=== PATIENT | male | born 1975 | race African-American/Black ===

== ENCOUNTER 2017-07-06 11:02 | Emergency (ER) | payer OTHER ==
[2017-07-06 11:09] VITALS: BP 146/86; PULSE 66; TEMP 97.6; BMI 35.6
[2017-07-06] MEDS ORDERED: IBUPROFEN 600 MG TABLET (FP) PO ONE (12:13)
[2017-07-06] MEDS ORDERED: IBUPROFEN 400 MG TABLET (FP) PO ONE (12:15)
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
== END 2017-07-06 12:22 | disposition home or self-care (01) ==
LOC: JERFT 11:02
DX: M54.5 Low back pain (principal); V44.9XXA Unspecified car occupant injured in collision with heavy transport vehicle or bus in traffic accident, initial encounter; Y92.488 Other paved roadways as the place of occurrence of the external cause; Y93.89 Activity, other specified; Y99.8 Other external cause status
CPT/HCPCS: 99281-25

== ENCOUNTER 2017-10-15 22:19 | Emergency (ER) | payer SELFPAY ==
[2017-10-15 22:45] VITALS: BP 116/62; PULSE 93; TEMP 99.1; BMI 34.2
--- NOTE | 2017-10-15 23:58 | PDOC ---
History of Present Illness - General Chief Complaint: Pain Stated Complaint: COLD SYMPTOMS/RT ARM PAIN Time Seen by Provider: 10/15/17 23:32 History Source: Patient Exam Limitations: No Limitations - History of Present Illness Initial Comments: 10/15/17 23:53 This is a 42-year-old male with past medical history of tonsillectomy, YASMANI presents emergency Department with 1 week of dry cough, sore throat, body aches also with 1 day of atraumatic right elbow pain and 1 month of itching and burning to his left foot. 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 Patient testicular medication for approximately 4 days and did not improve so she stopped taking it. Patient states he woke up this morning with right elbow pain which he states is decreased his range of motion. He denies any redness, swelling or warmth to his elbow. He denies fevers, chills, chest pain, shortness of breath, abdominal pain , nausea, vomiting, diarrhea. Past History - Past Medical History Allergies/Adverse Reactions: Allergies Allergy/AdvReac Type Severity Reaction Status Date / Time No Known Drug Allergies Allergy Verified 10/15/17 22:45 Home Medications: Ambulatory Orders Cyclobenzaprine HCl [Flexeril -] 10 mg PO TID PRN #15 tablet 07/06/17 Naproxen [Naprosyn -] 500 mg PO BID #14 tablet 07/06/17 Anemia: No Asthma: No Cancer: No Cardiac Disorders: No CVA: No COPD: No CHF: No Dementia: No Diabetes: No GI Disorders: No Disorders: No HTN: No Hypercholesterolemia: No Liver Disease: No Seizures: No Thyroid Disease: No - Surgical History Abdominal Surgery: Yes (hernia) - Suicide/Smoking/Psychosocial Hx Smoking History: Former smoker Have you smoked in the past 12 months: No Number of Cigarettes Smoked Daily: 0 If you are a former smoker, when did you quit?: 6 Information on smoking cessation initiated: No 'Breaking Loose' booklet given: 07/06/17 Hx Alcohol Use: No Drug/Substance Use Hx: No Substance Use Type: None Hx Substance Use Treatment: No Review of Systems - Review of Systems Able to Perform ROS?: Yes Is the patient limited Chadian proficient: No Constitutional: No: Symptoms Reported HEENTM: Yes: See HPI Respiratory: Yes: See HPI Cardiac (ROS): No: Symptoms Reported ABD/GI: No: Symptoms Reported : No: Symptoms Reported Musculoskeletal: Yes: See HPI Integumentary: No: Symptoms Reported Neurological: No: Symptoms reported *Physical Exam - Vital Signs Last Vital Signs Temp Pulse Resp BP Pulse Ox 99.1 F 93 H 18 116/62 99 10/15/17 22:43 10/15/17 22:43 10/15/17 22:43 10/15/17 22:43 10/15/17 22:43 - Physical Exam General Appearance: Yes: Appropriately Dressed. No: Apparent Distress HEENT: positive: Normal ENT Inspection Neck: positive: Trachea midline, Supple Respiratory/Chest: positive: Lungs Clear, Normal Breath Sounds. negative: Respiratory Distress, Accessory Muscle Use Cardiovascular: positive: Regular Rhythm, Regular Rate. negative: Murmur Vascular Pulses: Dorsalis-Pedis (R): 2+, Doralis-Pedis (L): 2+ Gastrointestinal/Abdominal: positive: Normal Bowel Sounds, Soft. negative: Tender Musculoskeletal: positive: Normal Inspection, Decreased Range of Motion ( extension of the right elbow). negative: CVA Tenderness Extremity: positive: Normal Capillary Refill, Normal Inspection, Other (Open sore noted in the webbing between fourth and fifth digit of the left foot.). negative: Normal Range of Motion Integumentary: positive: Normal Color, Dry, Warm Neurologic: positive: Alert, Motor Strength 5/5 ED Treatment Course - LABORATORY CBC & Chemistry Diagram: 10/16/17 02:40 10/16/17 02:40 - RADIOLOGY Radiology Studies Ordered: Category Date Time Status ELBOW-RIGHT [RAD] Stat Radiology 10/15/17 23:52 Ordered Medical Decision Making - Medical Decision Making 10/15/17 23:58 A/P: 42-year-old male with 1 week of upper respiratory symptoms, 1 day of atraumatic right elbow pain and 3 months of itching and burning to his left foot Oropharynx clear without erythema or exudates. Tonsils and uvula absent No cervical lymphadenopathy present Lungs clear to auscultation bilaterally RRR. No murmur, rub or gallop noted. Abdomen soft nontender nondistended. Patient states she is unable to extend his right elbow while distracted able to fully extend right elbow without difficulty. No erythema, swelling or warmth present to right elbow. No bony tenderness present to the right elbow 2+ radial and ulnar pulses noted bilaterally Open ulcer noted to the webbing between the fourth and fifth digits of the left foot. Tinea present to the plantar surface of left foot Tinea pedis of the left foot Patient symptoms consistent with upper respiratory infection. Right elbow pain is not consistent with upper respiratory infection. No signs and symptoms of septic joint I will perform an x-ray to evaluate for occult fracture 10/16/17 02:12 X-rays read by me: prominent fat pad present which may be indicative of fracture. Non-displaced Radial head avulsion fracture noted. Questionable lytic lesions noted. I'll send x-ray to imaging finisher accordion for evaluation of questionable lytic lesions. Given atraumatic nature of the fractures, I will collect CBC and CMP. 10/16/17 03:27 X-ray as read by imaging finisher accordion: No fracture dislocation or destructive bone lesions. Note made of some chronic ossicles although the olecranon process. Slight prominent fat pad uncertain etiology. Soft tissue otherwise normal. In view of the patient's symptoms, not being able to straighten elbow and pain without trauma, MRI may be helpful for evaluation. 10/16/17 03:46 Laboratory testing reveals normal calcium and H&H. I'll discharge the patient home with orthopedic follow-up as needed. *DC/Admit/Observation/Transfer Diagnosis at time of Disposition: Tinea pedis of left foot, Elbow pain, right URI (upper respiratory infection) Qualifiers: URI type: unspecified URI Qualified Code(s): J06.9 - Acute upper respiratory infection, unspecified - Discharge Dispostion Disposition: HOME Condition at time of disposition: Fair Decision to Admit order: No - Referrals Referrals: Israel Hidalgo MD [Primary Care Provider] - Khang Robles MD [Staff Physician] - - Patient Instructions Additional Instructions: Rest, drink lots of fluids: Teas, water, soups, Pedialyte Saltwater gargles Steamy showers/seem to face break up mucus Avoid contact with others until fevers and cough resolved Lots of handwashing and good hygiene Continue [id number] medications for symptomatic relief Tylenol or Motrin for fever and pain Apply Lotrimin to affected areas twice a day for the next 2 weeks. Followup with private physician in one to 2 days as needed Return to emergency department for worsened symptoms, fevers, dehydration Dr. Khang Robles has orthopedic clinic hours for Medicare/Medicaid Orthopedic referral patients Office is located on [address] at [facility] ; call for appointment Clinic is open Thursday from 9 AM to 12 noon and afternoon from to 4pm - Post Discharge Activity Forms/Work/School Notes: Back to Work
--- NOTE | 2017-10-16 03:00 | PDOC ---
*Physical Exam - Vital Signs Last Vital Signs Temp Pulse Resp BP Pulse Ox 99.1 F 93 H 18 116/62 99 10/15/17 22:43 10/15/17 22:43 10/15/17 22:43 10/15/17 22:43 10/15/17 22:43 Medical Decision Making - Medical Decision Making 10/16/17 03:00 agree with care from REJI March *DC/Admit/Observation/Transfer Diagnosis at time of Disposition: Tinea pedis of left foot - Referrals Referrals: sIrael Hidalgo MD [Primary Care Provider] - - Patient Instructions - Post Discharge Activity
[2017-10-16 03:07] LABS: BASO % 0.5 % (0-2.0); HEMATOCRIT 37.1 % (35.4-49); MCHC 35.1 g/dl (32.0-35.9); MEAN CELL VOLUME 85.2 fl (80-96); MEAN PLT VOLUME 8.5 fl (7.5-11.1); MONO % 10.7 % (3.8-10.2); NEUT % 61.8 % (42.8-82.8); PLATELET COUNT 175 K/MM3 (134-434); RBC 4.35 M/mm3 (4.00-5.60); RDW 13.3 % (11.9-15.9); WHITE BLOOD COUNT 7.4 K/mm3 (4.0-10.0)
[2017-10-16 03:29] LABS: ALBUMIN 3.7 g/dl (3.4-5.0); ANION GAP 6 (8-16); BILIRUBIN,TOTAL 1.2 mg/dL (0.2-1.0); BLOOD UREA NITROGEN 13 mg/dL (7-18); CALCIUM 8.4 mg/dL (8.5-10.1); CHLORIDE 106 mmol/L (98-107); CO2 27 mmol/L (21-32); CREATININE 1.2 mg/dL (0.7-1.3); GLUCOSE,RANDOM 113 mg/dL (74-106); POTASSIUM 3.9 mmol/L (3.5-5.1); SGOT/AST 28 U/L (15-37); SGPT/ALT 27 U/L (12-78); SODIUM 139 mmol/L (136-145); TOT PROT 6.8 g/dl (6.4-8.2)
[2017-10-16 03:30] LABS: ALK PHOS 63 U/L (45-117)
== END 2017-10-16 04:23 | disposition home or self-care (01) ==
LOC: JER 22:19
DX: B35.3 Tinea pedis (principal); M25.521 Pain in right elbow; J06.9 Acute upper respiratory infection, unspecified
CPT/HCPCS: 36415; 73070-TC-RT-FY; 80053; 85025; 99281-25

== ENCOUNTER 2019-04-26 23:13 | Emergency (ER) | payer OTHER ==
[2019-04-27 00:53] VITALS: BP 129/66; PULSE 78; TEMP 98.3; BMI 33.2
--- NOTE | 2019-04-27 01:41 | PDOC ---
Attending Attestation - Resident Resident Name: Ashley Perez - ED Attending Attestation I have performed the following: I have examined & evaluated the patient, The case was reviewed & discussed with the resident, I agree w/resident's findings & plan - HPI HPI: 04/27/19 03:11 see resident hpi - Physicial Exam PE: 04/27/19 03:13 agree with resident exam - Medical Decision Making 04/27/19 03:13 44-year-old male with sore throat Patient is status post tonsillectomy with no fever and no clinical signs consistent with strep pharyngitis Dexamethasone and Toradol given for discomfort Cause likely viral There is no subglottic tenderness swelling or crepitance noted on neck exam Will DC with recommended outpatient follow-up, patient advised to return should he develop neck stiffness neck pain fever difficulty swallowing or any worsening in condition
[2019-04-27] MEDS ORDERED: IBUPROFEN 400 MG TABLET (FP) PO ONE (01:57)
[2019-04-27] MEDS ORDERED: DEXAMETHASONE LIQUID 0.5 MG/5 ML PO ONE (02:07)
[2019-04-27] MEDS ORDERED: KETOROLAC TROMETHAMINE 30 MG/1 ML VIAL IM ONE (02:07)
[2019-04-27] MEDS ORDERED: DEXAMETHASONE SOD PHOSPHATE 10 MG/1 ML VIAL ONE (02:10)
[2019-04-27] MEDS ORDERED: KETOROLAC TROMETHAMINE 30 MG/1 ML VIAL ONE (02:10)
--- NOTE | 2019-04-27 02:24 | PDOC ---
History of Present Illness - General Chief Complaint: Pain Stated Complaint: Leg Pain Time Seen by Provider: 04/27/19 01:34 History Source: Patient Exam Limitations: No Limitations - History of Present Illness Initial Comments: Pt is a 44 yo M, with PMH of tonsillectomy and YASMANI, who is presenting with complaints of dry cough, dry nasal congestion, sore throat, body aches x2 days. Pt also endorses shooting pain down the posterior RLE x2 months, which has been unchanged. Pt is tolerating some PO intake, despite decreased appetite. Pt denies any fevers/chills, headache, vision changes, syncope, chest pain, palpitations, SOB, nausea/vomiting, abdominal pain, urinary symptoms, diarrhea/ constipation, or leg swelling. Allergies: NKDA PCP: None Social: Pt denies any cigarette, alcohol, or drug use. Pt denies any recent travel or sick contacts. Surgical: tonsillectomy Family: no relevant history. 04/27/19 02:25 Past History - Travel Traveled outside of the country in the last 30 days: No Close contact w/someone who was outside of country & ill: No - Past Medical History Allergies/Adverse Reactions: Allergies Allergy/AdvReac Type Severity Reaction Status Date / Time No Known Drug Allergies Allergy Verified 04/27/19 00:51 Home Medications: Ambulatory Orders Cyclobenzaprine HCl [Flexeril -] 10 mg PO TID PRN #15 tablet 07/06/17 Naproxen [Naprosyn -] 500 mg PO BID #14 tablet 07/06/17 Anemia: No Asthma: No Cancer: No Cardiac Disorders: No CVA: No COPD: No CHF: No Dementia: No Diabetes: No GI Disorders: No Disorders: No HTN: No Hypercholesterolemia: No Liver Disease: No Seizures: No Thyroid Disease: No - Surgical History Abdominal Surgery: Yes (hernia) - Psycho Social/Smoking Cessation Hx Smoking History: Unknown if ever smoked Have you smoked in the past 12 months: No Number of Cigarettes Smoked Daily: 0 If you are a former smoker, when did you quit?: 6 'Breaking Loose' booklet given: 07/06/17 Hx Alcohol Use: No Drug/Substance Use Hx: No Substance Use Type: None Hx Substance Use Treatment: No Review of Systems - Review of Systems Able to Perform ROS?: Yes Is the patient limited Scottish proficient: No Constitutional: Yes: Loss of Appetite, Malaise, Weight Stable. No: Chills, Diaphoresis, Fever, Weakness HEENTM: Yes: Nose Congestion, Throat Pain. No: Recent change in vision, Nose Pain, Hearing Loss, Throat Swelling, Difficulty Swallowing Respiratory: Yes: Cough. No: Orthopnea, Shortness of Breath, Wheezing, Productive cough, Hemoptysis Cardiac (ROS): No: Chest Pain, Edema, Irregular Heart Rate, Lightheadedness, Palpitations, Syncope, Chest Tightness ABD/GI: Yes: Poor Appetite. No: Constipated, Diarrhea, Nausea, Poor Fluid Intake, Vomiting, Abdominal cramping : No: Burning, Dysuria, Frequency, Hematuria, Pain, Urgency Musculoskeletal: Yes: Muscle Pain (sciatica xmonths down R leg). No: Back Pain , Joint Swelling Integumentary: No: Rash Neurological: Yes: Paresthesia (shooting pain down posterior R leg x2 months). No: Headache, Numbness, Weakness, Unsteady Gait, Dizziness Psychiatric: No: Sleep Pattern Change, Change in Appetite Endocrine: No: Increased Urine, Change in Weight Hematologic/Lymphatic: No: Anemia, Blood Clots, Easy Bleeding, Easy Bruising All Other Systems: Reviewed and Negative *Physical Exam - Vital Signs Last Vital Signs Temp Pulse Resp BP Pulse Ox 98.3 F 78 19 129/66 98 04/27/19 00:47 04/27/19 00:47 04/27/19 00:47 04/27/19 00:47 04/27/19 00:47 - Physical Exam Comments: Vitals stable, pt afebrile. Pt in NAD, sleeping on exam. Obese body habitus. Pt alert and oriented x3. manager life generally intact, muscular strength and sensation intact. No midline spinal tenderness, step-offs, or crepitus. Head normocephalic, atraumatic. No reproducible facial tenderness. Eyes PERRLA, EOMI. Oropharynx without erythema or exudates, no LAD b/l. +Tonsillectomy +Dry nasal congestion. Hearing intact. Clear heart sounds, S1/S2, no JVD, b/l pedal edema, or heart murmur. Clear lung sounds, no respiratory distress, wheezes, crackles, or accessory muscle use. No abdominal or CVA tenderness to palpation, no rebound, no guarding. Abdomen soft, non-distended, and with normoactive bowel sounds. Skin without jaundice or rash. +straight leg test (induces pain on the R posterior leg). 04/27/19 02:21 ED Treatment Course - Medications Given in the ED: ED Medications Discontinued Medications Generic Name Dose Route Start Last Admin Trade Name Natalia PRN Reason Stop Dose Admin Dexamethasone 10 mg 04/27/19 02:07 04/27/19 02:18 Decadron Liquid - PO 04/27/19 02:08 10 mg ONCE ONE Administration Ketorolac Tromethamine 30 mg 04/27/19 02:07 04/27/19 02:18 Toradol Injection - IM 04/27/19 02:08 30 mg ONCE ONE Administration Medical Decision Making - Medical Decision Making Pt was seen at bedside, also will be seen by attending Dr. Wharton. Pt presenting with symptoms consistent with viral URI. Will obtain influenza swab, as pt is in timeframe for tamiflu. Provided PO decadron and IM toradol for improvement of pain and discomfort. Will continue to reassess pt and monitor for symptomatic improvement. 04/27/19 02:26 Flu negative. Pt safe for d/c to home with PCP f/u. Strict return precautions provided with pt understanding. 04/27/19 02:49 Discharge - Discharge Information Problems reviewed: Yes Clinical Impression/Diagnosis: Viral URI Condition: Good Disposition: HOME - Admission No - Follow up/Referral Referrals: [facility] [place] [Provider Group] - Patient Discharge Instructions Patient Printed Discharge Instructions: Common Cold, DI for Sciatica Additional Instructions: You were seen in the ER today for cough and leg pain. The results of your labs today were normal. Please follow-up with your primary care doctor within 1-2 days to discuss your visit and make sure your symptoms have improved. Please return to the ER if you have any worsening pain, development of fevers or chills , loss of consciousness, inability to tolerate food or fluids, or any other concerns. You can take tylenol or motrin every 4-6 hours as needed for pain. - Post Discharge Activity
--- NOTE | 2019-04-27 10:33 | EKG ---
Test Reason : Blood Pressure : / mmHG Vent. Rate : 073 BPM Atrial Rate : 073 BPM P-R Int : 200 ms QRS Dur : 082 ms QT Int : 380 ms P-R-T Axes : 046 022 028 degrees QTc Int : 418 ms NORMAL SINUS RHYTHM NORMAL ECG NO PREVIOUS ECGS AVAILABLE Confirmed by ROBBY GALLARDO, ISADORA ([id number]) on 04/27/2019 10:33:00 AM Referred By: Confirmed By:ISADORA BUSTAMANTE MD
== END 2019-04-27 02:55 | disposition home or self-care (01) ==
LOC: JER 23:13
PROC: 3E0233Z Introduction of Anti-inflammatory into Muscle, Percutaneous Approach (ICD-10-PCS; principal; 2019-04-26)
DX: J06.9 Acute upper respiratory infection, unspecified (principal); B97.89 Other viral agents as the cause of diseases classified elsewhere; M79.604 Pain in right leg; M54.31 Sciatica, right side
CPT/HCPCS: 87804; 93005; 93010; 96372; 99281-25

== ENCOUNTER 2019-12-16 02:18 | Emergency (ER) | payer OTHER ==
[2019-12-16 02:24] VITALS: BP 132/95; PULSE 80; TEMP 98.3; BMI 33.6
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
[2019-12-16] MEDS ORDERED: CEPHALEXIN MONOHYDRATE 500 MG CAPSULE (UD) PO ONE (02:33)
[2019-12-16] MEDS ORDERED: CEPHALEXIN MONOHYDRATE 500 MG CAPSULE (UD) ONE (02:38)
== END 2019-12-16 02:42 | disposition home or self-care (01) ==
LOC: FER 02:18
DX: S20.361A Insect bite (nonvenomous) of right front wall of thorax, initial encounter (principal)
CPT/HCPCS: 99283-25

== ENCOUNTER 2020-03-06 12:52 | Emergency (ER) | payer OTHER ==
[2020-03-06 13:01] VITALS: BP 133/87; PULSE 78; TEMP 97.8; BMI 35.2
--- NOTE | 2020-03-06 13:02 | PDOC ---
Rapid Medical Evaluation Chief Complaint: Wound Time Seen by Provider: 03/06/20 13:00 Medical Evaluation: Allergies Allergy/AdvReac Type Severity Reaction Status Date / Time No Known Drug Allergies Allergy Verified 04/27/19 00:51 03/06/20 13:00 I have performed a brief in-person evaluation of this patient. CC: abscess that is draining x3 days. Referred by derm. Given Rx for Bactrim by derm. PE: 3cm ovoid area of induration to left flank. Does not meet SIRS. Orders: deferred Patient will proceed to ED for further evaluation. Discharge Disposition - Diagnosis Abscess - Referrals - Patient Instructions - Post Discharge Activity
[2020-03-06] MEDS ORDERED: KETOROLAC TROMETHAMINE 30 MG/1 ML VIAL IM ONE (13:33)
[2020-03-06] MEDS ORDERED: KETOROLAC TROMETHAMINE 30 MG/1 ML VIAL ONE (13:34)
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
[2020-03-06 14:01] LABS: BASO % 0.8 % (0-2.0); EOS % 3.8 % (0-4.5); HEMATOCRIT 40.4 % (35.4-49); HEMOGLOBIN 13.5 GM/dL (11.7-16.9); LYMPH % 17.1 % (8-40); MCH 28.5 pg (25.7-33.7); MCHC 33.4 g/dl (32.0-35.9); MEAN CELL VOLUME 85.4 fl (80-96); MEAN PLT VOLUME 7.7 fl (7.5-11.1); MONO % 8.3 % (3.8-10.2); PLATELET COUNT 265 K/MM3 (134-434); RBC 4.73 M/mm3 (4.00-5.60); RDW 14.6 % (11.9-15.9); WHITE BLOOD COUNT 9.3 K/mm3 (4.0-10.0)
--- OUTSIDE RECORDS SUMMARY | 2020-03-06 14:16 | XMS ---
:1975 Author Organization [facility] Care Team Providers Name Role Phone Androne, Cindy S Unavailable Unavailable Androne, S Unavailable Unavailable Androne, S Unavailable Unavailable Androne, S Unavailable Unavailable Androne, S Unavailable Unavailable Androne, S Unavailable Unavailable Androne, S Unavailable Unavailable Androne, S Unavailable Unavailable Re-disclosure Warning The records that you are about to access may contain information from federally- assisted alcohol or drug abuse programs. If such information is present, then the following federally mandated warning applies: This information has been disclosed to you from records protected by federal confidentiality rules (42 CFR part 2). The federal rules prohibit you from making any further disclosure of this information unless further disclosure is expressly permitted by the written consent of the person to whom it pertains or as otherwise permitted by 42 CFR part 2. A general authorization for the release of medical or other information is NOT sufficient for this purpose. The Federal rules restrict any use of the information to criminally investigate or prosecute any alcohol or drug abuse patient.The records that you are about to access may contain highly sensitive health information, the redisclosure of which is protected by Article 27-F of the [place] State Public Health law. If you continue you may haveaccess to information: Regarding HIV / AIDS; Provided by facilities licensed or operated by the [facility] Office of Mental Health; or Provided by the [facility] Office for People With Developmental Disabilities. If such information is present, then the following [facility] mandated warning applies: This information has been disclosed to you from confidential records which are protected by state law. State law prohibits you from making any further disclosure of this information without the specific written consent of the person to whom it pertains, or as otherwise permitted by law. Any unauthorized further disclosure in violation of state law may result in a fine or mcfp sentence or both. A general authorization for the release of medical or other information is NOT sufficient authorization for further disclosure. Encounters Encounter Providers Location Date Indications Data Source(s ) Attender: Cindy 12/27/2019 [facility] ([facility] 12:00:00 AM EDT Medical, PC) Office Medications Medication Brand Start Product Dose Route Administrative Pharmacy [facility] Indications Reaction Description Data Name Date Form Instructions Instructions Source(s) Sulfamethox BACTRI 01/31/ TABLET 20 complet BACT RIM DS MEDGEN (St azole 800 M 2020 ed [facility] / DS:849 12:00: Medical, Trimethopri 580 00 AM PC) m 160 MG EDT Oral Tablet [Bactrim] BACTRIM [id number] Azithromyci ZITHRO complet ZITHRO MAX MEDGEN (St n 250 MG MAX 2020 ed Z-ALEKS [facility] Oral Tablet Z-ALEKS: 12:00: Medi angella, ZITHROMAX [id number] 00 AM PC) Z-ALEKS:[id number] EST 0 Azithromyci ZITHRO complet ZITHRO MAX MED[facility] (St n 250 MG MAX 2020 ed Z-ALEKS [facility] Oral Tablet Z-ALEKS: 12:00: Medi angella, ZITHROMAX [id number] 00 AM PC) Z-ALEKS:[id number] EST 0 Azithromyci ZITHRO complet ZITHRO MAX MED[facility] (St n 250 MG MAX 2020 ed Z-ALEKS [facility] Oral Tablet Z-ALEKS: 12:00: Medi angella, ZITHROMAX [id number] 00 AM PC) Z-ALEKS:[id number] EST 0 Insurance Providers Payer name Policy type Policy ID Covered Covered republican's Policy P susana / Coverage republican ID relationship to Mondragon Inf ormation type mondragon CALVIN [id number] SP [id number] 800 HEALTH NON CAP CALVIN [id number] 1 [id number] 800 CARE POWER SMIPSON [id number] SP [id number] 800 HEALTH NON CAP CALVIN [id number] 1 [id number] 800 CARE STANFORD SIMPSON [id number] SP [id number] 800 HEALTH NON CAP CALVIN [id number] 1 [id number] 800 CARE Problems, Conditions, and Diagnoses Code Display Name Description Problem Type Effective Data Sour ce(s) Dates R60.0 Localized edema LOCALIZED EDEMA Problem 02/01/2020 MEDG EN (St 12:00:[address] [facility], ) I10 Essential ESSENTIAL Problem 02/01/2020 MEDGEN (St (primary) (PRIMARY) 12:00:00 AM [facility] hypertension HYPERTENSION [facility]) L03.90 Cellulitis, CELLULITIS, Problem 02/01/2020 MED[facility] (St unspecified UNSPECIFIED 12:00:[address] [facility], ) L02.213 Cutaneous abscess CUTANEOUS ABSCESS Problem 12/27/2019 MEDGEN (St of chest wall OF CHEST WALL 12:00:[address] [facility], ) L02.213 Cutaneous abscess CUTANEOUS ABSCESS Problem 12/27/2019 MEDGEN (St of chest wall OF CHEST WALL 12:00:[address] [facility], ) L02.213 Cutaneous abscess CUTANEOUS ABSCESS Problem 12/27/2019 MEDGEN (St of chest wall OF CHEST WALL 12:00:[address] [facility], ) R94.5 Abnormal results ABNORMAL RESULTS Problem 06/15/2019 ME DGEN (St of liver function OF LIVER FUNCTION 12:00:00 AM [facility] STUDIES [facility], ) M79.671 Pain in right foot PAIN IN RIGHT FOOT Problem 0 MEDGEN (St 12:00:00 AM [facility], ) M20.11 Hallux valgus HALLUX VALGUS Problem 06/15/2019 MEDGEN ( St (acquired), right (ACQUIRED), RIGHT 12:00:00 AM [facility] FOOT [facility], ) M1A.00X0 Idiopathic chronic IDIOPATHIC CHRONIC Problem 0 MEDGEN (St gout, unspecified GOUT, UNSPECIFIED 12:00:00 AM [facility] site, without SITE, WITHOUT EST Medical, ) tophus (tophi) TOPHUS (TOPHI) M10.9 Gout, unspecified GOUT, UNSPECIFIED Problem 06/15/2019 MED[facility] (St 12:00:00 AM [facility] EST Medical, ) J06.9 Acute upper ACUTE UPPER Problem 06/15/2019 MEDGEN (St respiratory RESPIRATORY 12:00:00 AM [facility] infection, INFECTION, EST Medical, ) unspecified UNSPECIFIED R94.5 Abnormal results ABNORMAL RESULTS Problem 06/15/2019 ME DGEN (St of liver function OF LIVER FUNCTION 12:00:00 AM [facility] studies STUDIES EST Medical, ) M79.671 Pain in right foot PAIN IN RIGHT FOOT Problem 0 MED[facility] (St 12:00:00 AM [facility] EST Medical, ) M20.11 Hallux valgus HALLUX VALGUS Problem 06/15/2019 MEDGEN ( St (acquired), right (ACQUIRED), RIGHT 12:00:00 AM [facility] foot FOOT EST Medical, ) M1A.00X0 Idiopathic chronic IDIOPATHIC CHRONIC Problem 0 MED[facility] (St gout, unspecified GOUT, UNSPECIFIED 12:00:00 AM [facility] site, without SITE, WITHOUT EST Medical, ) tophus (tophi) TOPHUS (TOPHI) M10.9 Gout, unspecified GOUT, UNSPECIFIED Problem 06/15/2019 [facility] (St 12:00:00 AM [facility] EST Medical, ) J06.9 Acute upper ACUTE UPPER Problem 06/15/2019 MED[facility] (St respiratory RESPIRATORY 12:00:00 AM [facility] infection, INFECTION, EST Medical, ) unspecified UNSPECIFIED R94.5 Abnormal results ABNORMAL RESULTS Problem 06/15/2019 ME DGEN (St of liver function OF LIVER FUNCTION 12:00:00 AM [facility] studies STUDIES EST Medical, ) M79.671 Pain in right foot PAIN IN RIGHT FOOT Problem 0 [facility] (St 12:00:00 AM [facility] EST Medical, ) M20.11 Hallux valgus HALLUX VALGUS Problem 06/15/2019 MED[facility] ( St (acquired), right (ACQUIRED), RIGHT 12:00:00 AM [facility] foot FOOT EST Medical, ) M1A.00X0 Idiopathic chronic IDIOPATHIC CHRONIC Problem 0 MED[facility] (St gout, unspecified GOUT, UNSPECIFIED 12:00:00 AM [facility] site, without SITE, WITHOUT EST Medical, PC) tophus (tophi) TOPHUS (TOPHI) M10.9 Gout, unspecified GOUT, UNSPECIFIED Problem 06/15/2019 [facility] (St 12:00:00 AM [facility] EST Medical, PC) J06.9 Acute upper ACUTE UPPER Problem 06/15/2019 MED[facility] (St respiratory RESPIRATORY 12:00:00 AM [facility] infection, INFECTION, EST Medical, ) unspecified UNSPECIFIED M54.5 Low back pain LOW BACK PAIN Problem 05/18/2019 MED[facility] ( St 12:00:00 AM [facility] EST Medical, ) Z00.01 Encounter for ENCOUNTER FOR Problem 05/18/2019 MEDGEN ( St general adult GENERAL ADULT 12:00:00 AM [facility] MEDICAL EST Medical, ) examination with EXAMINATION WITH abnormal findings ABNORMAL FINDINGS M54.5 Low back pain LOW BACK PAIN Problem 05/18/2019 MED[facility] ( St 12:00:00 AM [facility] EST Medical, ) Z00.01 Encounter for ENCOUNTER FOR Problem 05/18/2019 MEDGEN ( St general adult GENERAL ADULT 12:00:00 AM [facility] MEDICAL EST Medical, ) examination with EXAMINATION WITH abnormal findings ABNORMAL FINDINGS M54.5 Low back pain LOW BACK PAIN Problem 05/18/2019 MED[facility] ( St 12:00:00 AM [facility] EST Medical, ) Z00.01 Encounter for ENCOUNTER FOR Problem 05/18/2019 MEDGEN ( St general adult GENERAL ADULT 12:00:00 AM [facility] MEDICAL EST Medical, ) examination with EXAMINATION WITH abnormal findings ABNORMAL FINDINGS Surgeries/Procedures Procedure Description Date Indications Data Source(s) Documentation of current 02/01/2020 [facility] ([facility] medications (procedure) 12:00:00 AM JENI Bahena) Documentation of current 02/01/2020 MED [facility] ([facility] medications (procedure) 12:00:00 AM JENI Bahena) Documentation of current 02/01/2020 MED [facility] ([facility] medications (procedure) 12:00:00 AM EDT edical, ) Documentation of current 02/01/2020 MED [facility] ([facility] medications (procedure) 12:00:00 AM EDT edical, PC) Documentation of current 02/01/2020 MED [facility] ([facility] medications (procedure) 12:00:00 AM EDT edical, ) Documentation of current 02/01/2020 MED [facility] ([facility] medications (procedure) 12:00:00 AM EDT edical, ) Documentation of current 02/01/2020 MED GEN ([facility] medications (procedure) 12:00:00 AM EDT edical, ) OFFICE OUTPATIENT VISIT 25 02/01/2020 Thomas STORM ([facility] MINUTES 12:00:00 AM [facility] Medical, ) COLLECTION VENOUS BLOOD 02/01/2020 MEDG EN ([facility] VENIPUNCTURE 12:00:00 AM [facility], ) Documentation of current 12/27/2019 MED GEN ([facility] medications (procedure) 12:00:00 AM EDT joyical, ) Documentation of current 12/27/2019 MED GEN ([facility] medications (procedure) 12:00:00 AM EDT edical, PC) Documentation of current 12/27/2019 MED GEN ([facility] medications (procedure) 12:00:00 AM EDT joyical, ) Documentation of current 12/27/2019 MED GEN ([facility] medications (procedure) 12:00:00 AM EDT edical, ) OFFICE OUTPATIENT VISIT 25 12/27/2019 Thomas STORM ([facility] MINUTES 12:00:00 AM T Medical, ) Documentation of current 12/27/2019 MED GEN ([facility] medications (procedure) 12:00:00 AM EDT edical, PC) Documentation of current 12/27/2019 MED GEN ([facility] medications (procedure) 12:00:00 AM EDT edical, PC) Documentation of current 12/27/2019 MED GEN ([facility] medications (procedure) 12:00:00 AM EDT edical, ) OFFICE OUTPATIENT VISIT 25 12/27/2019 Thomas STORM ([facility] MINUTES 12:00:00 AM EDT Medical, PC) Documentation of current 12/27/2019 MED GEN ([facility] medications (procedure) 12:00:00 AM EDAlea stafford, PC) Documentation of current 12/27/2019 MED GEN ([facility] medications (procedure) 12:00:00 AM EDAlea stafford, PC) OFFICE OUTPATIENT VISIT 25 12/27/2019 Thomas STORM ([facility] MINUTES 12:00:00 AM EDT Medical, PC) Documentation of current 06/15/2019 MED GEN ([facility] medications (procedure) 12:00:00 AM EST [facility] stafford, PC) Documentation of current 06/15/2019 MED GEN ([facility] medications (procedure) 12:00:00 AM EST [facility] stafford, PC) Documentation of current 06/15/2019 MED GEN ([facility] medications (procedure) 12:00:00 AM EST [facility] stafford, PC) Documentation of current 06/15/2019 MED [facility] ([facility] medications (procedure) 12:00:00 AM EST [facility] stafford, PC) Documentation of current 06/15/2019 MED [facility] ([facility] medications (procedure) 12:00:00 AM EST [facility] stafford, PC) Documentation of current 06/15/2019 MED [facility] ([facility] medications (procedure) 12:00:00 AM EST [facility] stafford, PC) Documentation of current 06/15/2019 MED [facility] ([facility] medications (procedure) 12:00:00 AM EST [facility] stafford, PC) Documentation of current 06/15/2019 MED [facility] ([facility] medications (procedure) 12:00:00 AM EST [facility] stafford, PC) Documentation of current 06/15/2019 MED [facility] ([facility] medications (procedure) 12:00:00 AM EST [facility] stafford, PC) Documentation of current 06/15/2019 MED [facility] ([facility] medications (procedure) 12:00:00 AM EST [facility] stafford, PC) OFFICE OUTPATIENT VISIT 25 06/15/2019 Thomas QUINTANAN ([facility] MINUTES 12:00:00 AM EST Medical, PC) OFFICE OUTPATIENT NEW 20 06/15/2019 MED GEN ([facility] MINUTES 12:00:00 AM EST Medical, PC) COLLECTION VENOUS BLOOD 06/15/2019 MEDG EN ([facility] VENIPUNCTURE 12:00:00 AM EST Medical, PC) ARTHROCENTESIS 06/15/2019 [facility] ASPIR&/INJECTION SMALL 12:00:00 AM [facility], PC) JT/BURSA Documentation of current 06/15/2019 MED GEN ([facility] medications (procedure) 12:00:00 AM JENI Romero) Documentation of current 06/15/2019 MED GEN ([facility] medications (procedure) 12:00:00 AM [facility] PC) Documentation of current 06/15/2019 MED GEN ([facility] medications (procedure) 12:00:00 AM [facility], PC) Documentation of current 06/15/2019 MED GEN ([facility] medications (procedure) 12:00:00 AM [facility], PC) Documentation of current 06/15/2019 MED GEN ([facility] medications (procedure) 12:00:00 AM [facility], PC) Documentation of current 06/15/2019 MED GEN ([facility] medications (procedure) 12:00:00 AM [facility], PC) Documentation of current 06/15/2019 MED GEN ([facility] medications (procedure) 12:00:00 AM [facility], PC) Documentation of current 06/15/2019 MED GEN ([facility] medications (procedure) 12:00:00 AM [facility], PC) Documentation of current 06/15/2019 MED GEN ([facility] medications (procedure) 12:00:00 AM [facility] PC) Documentation of current 06/15/2019 MED GEN ([facility] medications (procedure) 12:00:00 AM [facility] ) OFFICE OUTPATIENT VISIT 25 06/15/2019 Thomas QUINTANAN ([facility] MINUTES 12:00:00 AM [facility] Medical, PC) OFFICE OUTPATIENT NEW 20 06/15/2019 MED GEN ([facility] MINUTES 12:00:00 AM [facility] Medical, PC) COLLECTION VENOUS BLOOD 06/15/2019 MEDG EN ([facility] VENIPUNCTURE 12:00:00 AM EST Medical, PC) ARTHROCENTESIS 06/15/2019 [facility] ASPIR&/INJECTION SMALL 12:00:00 AM [facility], PC) JT/BURSA Documentation of current 06/15/2019 MED GEN ([facility] medications (procedure) 12:00:00 AM [facility] stafford, JENI) Documentation of current 06/15/2019 MED GEN ([facility] medications (procedure) 12:00:00 AM [facility] stafford, JENI) Documentation of current 06/15/2019 MED GEN ([facility] medications (procedure) 12:00:00 AM [facility] PC) Documentation of current 06/15/2019 MED GEN ([facility] medications (procedure) 12:00:00 AM [facility] PC) Documentation of current 06/15/2019 MED GEN ([facility] medications (procedure) 12:00:00 AM [facility] PC) Documentation of current 06/15/2019 MED GEN ([facility] medications (procedure) 12:00:00 AM JENI Romero) Documentation of current 06/15/2019 MED GEN ([facility] medications (procedure) 12:00:00 AM [facility] PC) Documentation of current 06/15/2019 MED GEN ([facility] medications (procedure) 12:00:00 AM JENI Romero) Documentation of current 06/15/2019 MED [facility] ([facility] medications (procedure) 12:00:00 AM JENI Romero) Documentation of current 06/15/2019 MED [facility] ([facility] medications (procedure) 12:00:00 AM JENI Romero) OFFICE OUTPATIENT VISIT 25 06/15/2019 Thomas EDGEN ([facility] MINUTES 12:00:00 AM EST [facility], PC) OFFICE OUTPATIENT NEW 20 06/15/2019 MED GEN ([facility] MINUTES 12:00:00 AM EST Medical, PC) COLLECTION VENOUS BLOOD 06/15/2019 MEDG EN ([facility] VENIPUNCTURE 12:00:00 AM EST Medical, PC) ARTHROCENTESIS 06/15/2019 [facility] ASPIR&/INJECTION SMALL 12:00:00 AM EST Me [facility] PC) JT/BURSA Documentation of current 05/18/2019 MED GEN ([facility] medications (procedure) 12:00:00 AM [facility] PC) Documentation of current 05/18/2019 MED [facility] ([facility] medications (procedure) 12:00:00 AM JENI Romero) OFFICE OUTPATIENT NEW 05/18/2019 MED GEN ([facility] MINUTES 12:00:00 AM EST Medical, ) COLLECTION VENOUS BLOOD 05/18/2019 MEDG EN ([facility] VENIPUNCTURE 12:00:00 AM [facility], ) Documentation of current 05/18/2019 MED [facility] Documentation of current 05/18/2019 MED [facility] ([facility] medications (procedure) 12:00:00 AM EST [facility], ) OFFICE OUTPATIENT NEW 05/18/2019 MED GEN ([facility] MINUTES 12:00:00 AM [facility] Medical, ) COLLECTION VENOUS BLOOD 05/18/2019 MEDG EN ([facility] VENIPUNCTURE 12:00:00 AM [facility], ) Documentation of current 05/18/2019 MED GEN ([facility] medications (procedure) 12:00:00 AM EST [facility], ) Documentation of current 05/18/2019 MED GEN ([facility] medications (procedure) 12:00:00 AM EST [facility], ) OFFICE OUTPATIENT NEW 05/18/2019 MED GEN ([facility] MINUTES 12:00:00 AM [facility], ) COLLECTION VENOUS BLOOD 05/18/2019 MEDG EN ([facility] VENIPUNCTURE 12:00:00 AM [facility], ) Results ID Date Data Source [id number] 02/01/2020 12:00:00 AM EDT [facility], ) Name Value Range Interpretation Description Data Sup porting Code Source(s) Document(s ) Sedimentation 6 mm/hr Normal (applies MEDGEN (St Rate-Westergren to non-numeric [facility] results) Medical, PC) ID Date Data Source [id number] 02/01/2020 12:00:00 AM EDT [facility]) Name Value Range Interpretation Description Data Sup porting Code Source(s) Document(s ) Hemoglobin A1c 5.6 % Normal (applies to MEDGEN (St in Blood non-numeric [facility] results) Medical, PC) ID Date Data Source [id number] 02/01/2020 12:00:00 AM EDT [facility]) Name Value Range Interpretation Description Data Sup porting Code Source(s) Document(s ) Urea nitrogen 12 mg/dL Normal (applies MEDGEN (St [Mass/volume] in to non-numeric [facility] Serum or Plasma results) Medical, PC) Glucose 83 mg/dL Normal (applies MEDGEN (St [Mass/volume] in to non-numeric [facility] Urine collected for results) Medical, unspecified PC) duration Creatinine 1.10 Normal (applies MEDGEN (St [Interpretation] in mg/dL to non-numeric [facility] Urine results) Medical, PC) eGFR If NonAfricn 82 Normal (applies MEDGEN (St Am mL/min/1 to non-numeric [facility] .73 results) Medical, PC) eGFR If Africn Am 95 Normal (applies MEDGEN (St mL/min/1 to non-numeric [facility] .73 results) Medical, PC) BUN/Creatinine 11 Normal (applies MEDGEN (S t Ratio to non-numeric [facility] results) Medical, PC) Sodium 140 Normal (applies MEDGEN (St [Moles/volume] in mmol/L to non-numeric [facility] Serum or Plasma results) Medical, PC) Potassium 4.9 Normal (applies MEDGEN (St [Mass/volume] in mmol/L to non-numeric [facility] Blood results) Medical, PC) Chloride 101 Normal (applies MEDGEN (St [Moles/volume] in mmol/L to non-numeric [facility] Serum or Plasma results) Medical, PC) Calcium 9.7 Normal (applies MEDGEN (St [Moles/volume] in mg/dL to non-numeric [facility] Urine collected for results) Medical, unspecified PC) duration Carbon dioxide, 27 Normal (applies MEDGEN ( St total mmol/L to non-numeric [facility] [Moles/volume] in results) Medical, Serum or Plasma PC) Protein 7.3 g/dL Normal (applies MEDGEN (St [Mass/volume] in to non-numeric [facility] Serum or Plasma results) Medical, PC) Microalbumin 4.7 g/dL Normal (applies MEDGEN (St [Mass/time] in to non-numeric [facility] Urine collected for results) Medical, unspecified PC) duration Globulin, Total 2.6 g/dL Normal (applies MEDGEN ( St to non-numeric [facility] results) Medical, PC) A/G Ratio 1.8 Normal (applies [facility]GEN (St to non-numeric [facility] results) Medical, ) Bilirubin.total 1.1 Normal (applies MEDGEN ( St [Mass/volume] in mg/dL to non-numeric [facility] Serum or Plasma results) Medical, ) Alkaline 60 IU/L Normal (applies MEDGEN (St phosphatase to non-numeric [facility] [Enzymatic results) Medical, activity/volume] in ) Serum, Plasma or Blood Aspartate 39 IU/L Normal (applies MEDGEN (St aminotransferase to non-numeric [facility] [Enzymatic results) Medical, activity/volume] in ) Serum or Plasma Alanine 26 IU/L Normal (applies MEDGEN (St aminotransferase to non-numeric [facility] [Enzymatic results) Medical, activity/volume] in ) Serum or Plasma ID Date Data Source [id number] 02/01/2020 12:00:00 AM EDT [facility] ([facility], ) Name Value Range Interpretation Description Data Sup porting Code Source(s) Document(s ) Leukocytes 6.7 Normal (applies MEDGEN (St [#/volume] in x10E3/uL to non-numeric [facility] Blood by results) Medical, ) Automated count Hemoglobin 13.8 Normal (applies MEDGEN (St [Mass/volume] in g/dL to non-numeric [facility] Blood results) Medical, ) Erythrocytes 4.67 Normal (applies MEDGEN (St [#/volume] in x10E6/uL to non-numeric [facility] Blood by results) [facility], ) Automated count Hematocrit 41.1 % Normal (applies MEDGEN (St [Volume to non-numeric [facility] Fraction] of results) [facility], ) Blood by Automated count MCH 29.6 pg Normal (applies MEDGEN (St to non-numeric [facility] results) Medical, ) MCV 88 fL Normal (applies MEDGEN (St to non-numeric [facility] results) Medical, ) MCHC 33.6 Normal (applies MEDGEN (St g/dL to non-numeric [facility] results) [facility], ) RDW 14.3 % Normal (applies MEDGEN (St to non-numeric [facility] results) Medical, ) Platelets 214 Normal (applies MEDGEN (St [#/area] in x10E3/uL to non-numeric [facility] Blood by results) [facility], ) Microscopy high power field Neutrophils [#] 65 % Normal (applies MEDGEN ( St in Body fluid by to non-numeric [facility] Manual count results) [facility], ) Monocytes 8 % Normal (applies MEDGEN (St [#/volume] in to non-numeric [facility] Cord blood results) [facility], ) Lymphs 24 % Normal (applies MEDGEN (St to non-numeric [facility] results) [facility], ) Eos 3 % Normal (applies MEDGEN (St to non-numeric [facility] results) [facility], ) Basos 0 % Normal (applies MEDGEN (St to non-numeric [facility] results) [facility], ) Lymphs 1.6 Normal (applies MEDGEN (St (Absolute) x10E3/uL to non-numeric [facility] results) [facility], ) Neutrophils 4.4 Normal (applies MEDGEN (St (Absolute) x10E3/uL to non-numeric [facility] results) [facility], ) Monocytes(Absolu 0.5 Normal (applies MEDGEN (St te) x10E3/uL to non-numeric [facility] results) [facility], ) Baso (Absolute) 0.0 Normal (applies MEDGEN ( St x10E3/uL to non-numeric [facility] results) [facility], ) Eos (Absolute) 0.2 Normal (applies MEDGEN (S t x10E3/uL to non-numeric [facility] results) [facility], ) Immature Grans 0.0 Normal (applies MEDGEN (S t (Abs) x10E3/uL to non-numeric [facility] results) [facility], ) Immature 0 % Normal (applies MEDGEN (St Granulocytes to non-numeric [facility] results) [facility], ) ID Date Data Source [id number] 06/15/2019 12:00:00 AM EST [facility], ) Name Value Range Interpretation Description Data Sup porting Code Source(s) Document(s ) Hepatitis B Negative Normal (applies MEDGEN (St virus core Ab to non-numeric [facility] [Presence] in results) [facility], ) Serum or Plasma by Immunoassay ID Date Data Source [id number] 06/15/2019 12:00:00 AM EST [facility], ) Name Value Range Interpretation Code Description Data Supporting Source(s) Document(s ) HBsAg Negative Normal (applies to MEDGEN (St Screen non-numeric [facility] results) Medical, ) ID Date Data Source [id number] 06/15/2019 12:00:00 AM EST [facility]) Name Value Range Interpretation Description Data Sup porting Code Source(s) Document(s ) Aldolase 7.3 U/L Normal (applies to MEDGEN (St [Enzymatic non-numeric [facility] activity/mass results) Medical, ) ] in Red Blood Cells ID Date Data Source [id number] 06/15/2019 12:00:00 AM EST [facility]) Name Value Range Interpretation Description Data Sup porting Code Source(s) Document(s ) Creatine 201 U/L Normal (applies to MEDGEN (St Kinase,Total non-numeric [facility] results) Medical, ) ID Date Data Source [id number] 06/15/2019 12:00:00 AM EST [facility], ) Name Value Range Interpretation Code Description Data Supporting Source(s) Document(s ) CINDY Direct Negative Normal (applies to MEDGEN (St non-numeric [facility] results) Medical, ) ID Date Data Source [id number] 06/15/2019 12:00:00 AM EST [facility] ([facility], ) Name Value Range Interpretation Code Description Data Zee rce(s) Supporting Document(s ) Uric Acid 6.2 mg/dL Normal (applies to [facility] (St non-numeric [facility] results) [facility], ) ID Date Data Source [id number] 06/15/2019 12:00:00 AM EST [facility] ([facility]) Name Value Range Interpretation Code Description Data Zee rce(s) Supporting Document(s ) Comment: Normal (applies to [facility] (St non-numeric results) [facility], ) ID Date Data Source [id number] 06/15/2019 12:00:00 AM EST [facility] ([facility]) Name Value Range Interpretation Code Description Data Zee rce(s) Supporting Document(s ) HCV Ab 0.2 s/co Normal (applies to [facility] (St ratio non-numeric [facility] results) [facility], ) ID Date Data Source [id number] 06/15/2019 12:00:00 AM EST [facility] ([facility], ) Name Value Range Interpretation Code Description Data Supporting Source(s) Document(s ) RA Latex 13.8 IU/mL Normal (applies to [facility] (St Turbid. non-numeric [facility] results) [facility], PC) ID Date Data Source [id number] 06/15/2019 12:00:00 AM EST [facility] ([facility], ) Name Value Range Interpretation Description Data Sup porting Code Source(s) Document(s ) Hep B Reactive Normal (applies to [facility] (St Surface Ab, non-numeric [facility] Qual results) [facility], PC) ID Date Data Source [id number] 06/15/2019 12:00:00 AM EST [facility] ([facility], ) Name Value Range Interpretation Description Data Sup porting Code Source(s) Document(s ) Glucose 99 mg/dL Normal (applies [facility] (St [Mass/volume] in to non-numeric [facility] Urine collected for results) Medical, unspecified PC) duration Urea nitrogen 14 mg/dL Normal (applies [facility] (St [Mass/volume] in to non-numeric [facility] Serum or Plasma results) [facility], PC) Creatinine 1.08 Normal (applies [facility] (St [Interpretation] in mg/dL to non-numeric [facility] Urine results) Medical, PC) eGFR If NonAfricn 84 Normal (applies [facility] (St Am mL/min/1 to non-numeric [facility] .73 results) Medical, PC) eGFR If Africn Am 97 Normal (applies [facility] (St mL/min/1 to non-numeric [facility] .73 results) Medical, PC) BUN/Creatinine 13 Normal (applies [facility] (S t Ratio to non-numeric [facility] results) [facility], PC) Sodium 140 Normal (applies [facility] (St [Moles/volume] in mmol/L to non-numeric [facility] Serum or Plasma results) [facility], PC) Potassium 4.1 Normal (applies [facility] (St [Mass/volume] in mmol/L to non-numeric [facility] Blood results) [facility], PC) Chloride 103 Normal (applies [facility] (St [Moles/volume] in mmol/L to non-numeric [facility] Serum or Plasma results) Medical, PC) Carbon dioxide, 23 Normal (applies [facility] ( St total mmol/L to non-numeric [facility] [Moles/volume] in results) Medical, Serum or Plasma PC) Calcium 9.2 Normal (applies [facility] (St [Moles/volume] in mg/dL to non-numeric [facility] Urine collected for results) Medical, unspecified PC) duration Protein 6.6 g/dL Normal (applies [facility] (St [Mass/volume] in to non-numeric [facility] Serum or Plasma results) Medical, ) Globulin, Total 2.4 g/dL Normal (applies [facility] ( St to non-numeric [facility] results) Medical, ) Microalbumin 4.2 g/dL Normal (applies [facility] (St [Mass/time] in to non-numeric [facility] Urine collected for results) Medical, unspecified PC) duration Bilirubin.total 0.9 Normal (applies [facility] ( St [Mass/volume] in mg/dL to non-numeric [facility] Serum or Plasma results) Medical, ) A/G Ratio 1.8 Normal (applies [facility] (St to non-numeric [facility] results) [facility], PC) Alkaline 50 IU/L Normal (applies [facility] (St phosphatase to non-numeric [facility] [Enzymatic results) Medical, activity/volume] in PC) Serum, Plasma or Blood Alanine 49 IU/L Above high [facility] (St aminotransferase normal [facility] [Enzymatic Medical, activity/volume] in PC) Serum or Plasma Aspartate 34 IU/L Normal (applies [facility] (St aminotransferase to non-numeric [facility] [Enzymatic results) Medical, activity/volume] in PC) Serum or Plasma ID Date Data Source [id number] 06/15/2019 12:00:00 AM EST [facility] ([facility]) Name Value Range Interpretation Description Data Sup porting Code Source(s) Document(s ) Leukocytes 6.0 Normal (applies [facility] (St [#/volume] in x10E3/uL to non-numeric [facility] Blood by results) Medical, ) Automated count Erythrocytes 4.69 Normal (applies [facility] (St [#/volume] in x10E6/uL to non-numeric [facility] Blood by results) Medical, ) Automated count Hemoglobin 13.3 Normal (applies [facility] (St [Mass/volume] in g/dL to non-numeric [facility] Blood results) Medical, ) Hematocrit 37.9 % Normal (applies [facility] (St [Volume to non-numeric [facility] Fraction] of results) [facility], ) Blood by Automated count MCH 28.4 pg Normal (applies [facility] (St to non-numeric [facility] results) [facility], ) MCV 81 fL Normal (applies [facility] (St to non-numeric [facility] results) [facility], ) MCHC 35.1 Normal (applies [facility] (St g/dL to non-numeric [facility] results) [facility], ) Platelets 184 Normal (applies [facility] (St [#/area] in x10E3/uL to non-numeric [facility] Blood by results) [facility], ) Microscopy high power field RDW 13.9 % Normal (applies [facility] (St to non-numeric [facility] results) [facility], ) Neutrophils [#] 51 % Normal (applies [facility] ( St in Body fluid by to non-numeric [facility] Manual count results) [facility], ) Lymphs 40 % Normal (applies [facility] (St to non-numeric [facility] results) [facility], ) Monocytes 7 % Normal (applies [facility] (St [#/volume] in to non-numeric [facility] Cord blood results) [facility], ) Eos 2 % Normal (applies [facility] (St to non-numeric [facility] results) [facility], ) Basos 0 % Normal (applies [facility] (St to non-numeric [facility] results) [facility], ) Neutrophils 3.0 Normal (applies [facility] (St (Absolute) x10E3/uL to non-numeric [facility] results) [facility], ) Monocytes(Absolu 0.4 Normal (applies [facility] (St te) x10E3/uL to non-numeric [facility] results) [facility], ) Lymphs 2.4 Normal (applies [facility] (St (Absolute) x10E3/uL to non-numeric [facility] results) [facility], ) Eos (Absolute) 0.1 Normal (applies [facility] (S t x10E3/uL to non-numeric [facility] results) [facility], ) Baso (Absolute) 0.0 Normal (applies [facility] ( St x10E3/uL to non-numeric [facility] results) [facility], ) Immature 0 % Normal (applies [facility] (St Granulocytes to non-numeric [facility] results) [facility], ) Immature Grans 0.0 Normal (applies [facility] (S t (Abs) x10E3/uL to non-numeric [facility] results) [facility], ) ID Date Data Source [id number] 06/15/2019 12:00:00 AM EST [facility] ([facility], ) Name Value Range Interpretation Description Data Sup porting Code Source(s) Document(s ) Hepatitis B Negative Normal (applies [facility] (St virus core Ab to non-numeric [facility] [Presence] in results) Medical, ) Serum or Plasma by Immunoassay ID Date Data Source [id number] 06/15/2019 12:00:00 AM EST [facility] ([facility], ) Name Value Range Interpretation Code Description Data Supporting Source(s) Document(s ) HBsAg Negative Normal (applies to [facility] (St Screen non-numeric [facility] results) [facility], ) ID Date Data Source [id number] 06/15/2019 12:00:00 AM EST [facility] ([facility], ) Name Value Range Interpretation Description Data Sup porting Code Source(s) Document(s ) Aldolase 7.3 U/L Normal (applies to [facility] (St [Enzymatic non-numeric [facility] activity/mass results) Medical, ) ] in Red Blood Cells ID Date Data Source [id number] 06/15/2019 12:00:00 AM EST [facility] ([facility], ) Name Value Range Interpretation Description Data Sup porting Code Source(s) Document(s ) Creatine 201 U/L Normal (applies to [facility] (St Kinase,Total non-numeric [facility] results) [facility], ) ID Date Data Source [id number] 06/15/2019 12:00:00 AM EST [facility] ([facility], ) Name Value Range Interpretation Code Description Data Supporting Source(s) Document(s ) CINDY Direct Negative Normal (applies to [facility] (St non-numeric [facility] results) [facility], ) ID Date Data Source [id number] 06/15/2019 12:00:00 AM EST [facility] ([facility], ) Name Value Range Interpretation Code Description Data Zee rce(s) Supporting Document(s ) Uric Acid 6.2 mg/dL Normal (applies to [facility] (St non-numeric [facility] results) [facility], ) ID Date Data Source [id number] 06/15/2019 12:00:00 AM EST [facility] ([facility], ) Name Value Range Interpretation Code Description Data Zee rce(s) Supporting Document(s ) Comment: Normal (applies to [facility] (St non-numeric results) [facility], ) ID Date Data Source [id number] 06/15/2019 12:00:00 AM EST [facility] ([facility], ) Name Value Range Interpretation Code Description Data Zee rce(s) Supporting Document(s ) HCV Ab 0.2 s/co Normal (applies to [facility] (St ratio non-numeric [facility] results) [facility], PC) ID Date Data Source [id number] 06/15/2019 12:00:00 AM EST [facility] ([facility], ) Name Value Range Interpretation Code Description Data Supporting Source(s) Document(s ) RA Latex 13.8 IU/mL Normal (applies to [facility] (St Turbid. non-numeric [facility] results) [facility], PC) ID Date Data Source [id number] 06/15/2019 12:00:00 AM EST [facility] ([facility], ) Name Value Range Interpretation Description Data Sup porting Code Source(s) Document(s ) Hep B Reactive Normal (applies to [facility] (St Surface Ab, non-numeric [facility] Qual results) Medical, ) ID Date Data Source [id number] 06/15/2019 12:00:00 AM EST [facility] ([facility], ) Name Value Range Interpretation Description Data Sup porting Code Source(s) Document(s ) Urea nitrogen 14 mg/dL Normal (applies [facility] (St [Mass/volume] in to non-numeric [facility] Serum or Plasma results) Medical, ) Glucose 99 mg/dL Normal (applies [facility] (St [Mass/volume] in to non-numeric [facility] Urine collected for results) Medical, unspecified ) duration eGFR If NonAfricn 84 Normal (applies [facility] (St Am mL/min/1 to non-numeric [facility] .73 results) Medical, PC) Creatinine 1.08 Normal (applies [facility] (St [Interpretation] in mg/dL to non-numeric [facility] Urine results) Medical, PC) BUN/Creatinine 13 Normal (applies [facility] (S t Ratio to non-numeric [facility] results) [facility], PC) eGFR If Africn Am 97 Normal (applies [facility] (St mL/min/1 to non-numeric [facility] .73 results) Medical, PC) Sodium 140 Normal (applies [facility] (St [Moles/volume] in mmol/L to non-numeric [facility] Serum or Plasma results) [facility], PC) Potassium 4.1 Normal (applies [facility] (St [Mass/volume] in mmol/L to non-numeric [facility] Blood results) [facility], PC) Chloride 103 Normal (applies [facility] (St [Moles/volume] in mmol/L to non-numeric [facility] Serum or Plasma results) [facility], PC) Calcium 9.2 Normal (applies [facility] (St [Moles/volume] in mg/dL to non-numeric [facility] Urine collected for results) Medical, unspecified PC) duration Carbon dioxide, 23 Normal (applies [facility] ( St total mmol/L to non-numeric [facility] [Moles/volume] in results) Medical, Serum or Plasma PC) Protein 6.6 g/dL Normal (applies [facility] (St [Mass/volume] in to non-numeric [facility] Serum or Plasma results) Medical, PC) Microalbumin 4.2 g/dL Normal (applies [facility] (St [Mass/time] in to non-numeric [facility] Urine collected for results) Medical, unspecified PC) duration Globulin, Total 2.4 g/dL Normal (applies [facility] ( St to non-numeric [facility] results) Medical, PC) A/G Ratio 1.8 Normal (applies [facility] (St to non-numeric [facility] results) Medical, PC) Bilirubin.total 0.9 Normal (applies [facility] ( St [Mass/volume] in mg/dL to non-numeric [facility] Serum or Plasma results) Medical, PC) Alkaline 50 IU/L Normal (applies [facility] (St phosphatase to non-numeric [facility] [Enzymatic results) Medical, activity/volume] in PC) Serum, Plasma or Blood Alanine 49 IU/L Above high [facility] (St aminotransferase normal [facility] [Enzymatic Medical, activity/volume] in PC) Serum or Plasma Aspartate 34 IU/L Normal (applies [facility] (St aminotransferase to non-numeric [facility] [Enzymatic results) Medical, activity/volume] in ) Serum or Plasma ID Date Data Source [id number] 06/15/2019 12:00:00 AM EST [facility] ([facility], ) Name Value Range Interpretation Description Data Sup porting Code Source(s) Document(s ) Leukocytes 6.0 Normal (applies [facility] (St [#/volume] in x10E3/uL to non-numeric [facility] Blood by results) Medical, ) Automated count Hemoglobin 13.3 Normal (applies [facility] (St [Mass/volume] in g/dL to non-numeric [facility] Blood results) Medical, ) Erythrocytes 4.69 Normal (applies [facility] (St [#/volume] in x10E6/uL to non-numeric [facility] Blood by results) Medical, ) Automated count Hematocrit 37.9 % Normal (applies [facility] (St [Volume to non-numeric [facility] Fraction] of results) Medical, ) Blood by Automated count MCV 81 fL Normal (applies [facility] (St to non-numeric [facility] results) Medical, ) MCH 28.4 pg Normal (applies [facility] (St to non-numeric [facility] results) Medical, ) MCHC 35.1 Normal (applies [facility] (St g/dL to non-numeric [facility] results) Medical, ) RDW 13.9 % Normal (applies [facility] (St to non-numeric [facility] results) Medical, ) Neutrophils [#] 51 % Normal (applies [facility] ( St in Body fluid by to non-numeric [facility] Manual count results) Medical, ) Platelets 184 Normal (applies [facility] (St [#/area] in x10E3/uL to non-numeric [facility] Blood by results) Medical, ) Microscopy high power field Monocytes 7 % Normal (applies [facility] (St [#/volume] in to non-numeric [facility] Cord blood results) Medical, ) Lymphs 40 % Normal (applies [facility] (St to non-numeric [facility] results) Medical, ) Basos 0 % Normal (applies [facility] (St to non-numeric [facility] results) Medical, ) Eos 2 % Normal (applies [facility] (St to non-numeric [facility] results) Medical, ) Neutrophils 3.0 Normal (applies [facility] (St (Absolute) x10E3/uL to non-numeric [facility] results) Medical, ) Lymphs 2.4 Normal (applies [facility] (St (Absolute) x10E3/uL to non-numeric [facility] results) Medical, ) Monocytes(Absolu 0.4 Normal (applies [facility] (St te) x10E3/uL to non-numeric [facility] results) Medical, ) Eos (Absolute) 0.1 Normal (applies [facility] (S t x10E3/uL to non-numeric [facility] results) Medical, ) Baso (Absolute) 0.0 Normal (applies [facility] ( St x10E3/uL to non-numeric [facility] results) Medical, ) Immature 0 % Normal (applies [facility] (St Granulocytes to non-numeric [facility] results) Medical, ) Immature Grans 0.0 Normal (applies [facility] (S t (Abs) x10E3/uL to non-numeric [facility] results) Medical, ) ID Date Data Source [id number] 06/15/2019 12:00:00 AM EST [facility] ([facility], ) Name Value Range Interpretation Description Data Sup porting Code Source(s) Document(s ) Hepatitis B Negative Normal (applies [facility] (St virus core Ab to non-numeric [facility] [Presence] in results) [facility], ) Serum or Plasma by Immunoassay ID Date Data Source [id number] 06/15/2019 12:00:00 AM EST [facility] ([facility], ) Name Value Range Interpretation Code Description Data Supporting Source(s) Document(s ) HBsAg Negative Normal (applies to [facility] (St Screen non-numeric [facility] results) [facility], ) ID Date Data Source [id number] 06/15/2019 12:00:00 AM EST [facility] ([facility], ) Name Value Range Interpretation Description Data Sup porting Code Source(s) Document(s ) Aldolase 7.3 U/L Normal (applies to [facility] (St [Enzymatic non-numeric [facility] activity/mass results) [facility], ) ] in Red Blood Cells ID Date Data Source [id number] 06/15/2019 12:00:00 AM EST [facility] ([facility], ) Name Value Range Interpretation Description Data Sup porting Code Source(s) Document(s ) Creatine 201 U/L Normal (applies to [facility] (St Kinase,Total non-numeric [facility] results) Medical, ) ID Date Data Source [id number] 06/15/2019 12:00:00 AM EST [facility] ([facility], ) Name Value Range Interpretation Code Description Data Supporting Source(s) Document(s ) CINDY Direct Negative Normal (applies to [facility] (St non-numeric [facility] results) [facility], ) ID Date Data Source [id number] 06/15/2019 12:00:00 AM EST [facility] ([facility], ) Name Value Range Interpretation Code Description Data Zee rce(s) Supporting Document(s ) Uric Acid 6.2 mg/dL Normal (applies to [facility] (St non-numeric [facility] results) [facility], ) ID Date Data Source [id number] 06/15/2019 12:00:00 AM EST [facility] ([facility], ) Name Value Range Interpretation Code Description Data Zee rce(s) Supporting Document(s ) ID Date Data Source [id number] 06/15/2019 12:00:00 AM EST [facility] ([facility], ) Name Value Range Interpretation Code Description Data Zee rce(s) Supporting Document(s ) HCV Ab 0.2 s/co Normal (applies to [facility] (St ratio non-numeric [facility] results) [facility], ) ID Date Data Source [id number] 06/15/2019 12:00:00 AM EST [facility] ([facility], ) Name Value Range Interpretation Code Description Data Supporting Source(s) Document(s ) RA Latex 13.8 IU/mL Normal (applies to [facility] (St Turbid. non-numeric [facility] results) [facility], ) ID Date Data Source [id number] 06/15/2019 12:00:00 AM EST [facility] ([facility], ) Name Value Range Interpretation Description Data Sup porting Code Source(s) Document(s ) Hep B Reactive Normal (applies to [facility] (St Surface Ab, non-numeric [facility] Qual results) Medical, ) ID Date Data Source [id number] 06/15/2019 12:00:00 AM EST [facility] ([facility], ) Name Value Range Interpretation Description Data Sup porting Code Source(s) Document(s ) Urea nitrogen 14 mg/dL Normal (applies [facility] (St [Mass/volume] in to non-numeric [facility] Serum or Plasma results) Medical, PC) Glucose 99 mg/dL Normal (applies [facility] (St [Mass/volume] in to non-numeric [facility] Urine collected for results) Medical, unspecified PC) duration Creatinine 1.08 Normal (applies [facility] (St [Interpretation] in mg/dL to non-numeric [facility] Urine results) Medical, PC) eGFR If NonAfricn 84 Normal (applies [facility] (St Am mL/min/1 to non-numeric [facility] .73 results) Medical, PC) Sodium 140 Normal (applies [facility] (St [Moles/volume] in mmol/L to non-numeric [facility] Serum or Plasma results) Medical, PC) eGFR If Africn Am 97 Normal (applies [facility] (St mL/min/1 to non-numeric [facility] .73 results) Medical, PC) BUN/Creatinine 13 Normal (applies [facility] (S t Ratio to non-numeric [facility] results) Medical, PC) Chloride 103 Normal (applies [facility] (St [Moles/volume] in mmol/L to non-numeric [facility] Serum or Plasma results) Medical, PC) Potassium 4.1 Normal (applies [facility] (St [Mass/volume] in mmol/L to non-numeric [facility] Blood results) Medical, PC) Calcium 9.2 Normal (applies [facility] (St [Moles/volume] in mg/dL to non-numeric [facility] Urine collected for results) Medical, unspecified PC) duration Carbon dioxide, 23 Normal (applies [facility] ( St total mmol/L to non-numeric [facility] [Moles/volume] in results) Medical, Serum or Plasma PC) Protein 6.6 g/dL Normal (applies [facility] (St [Mass/volume] in to non-numeric [facility] Serum or Plasma results) Medical, PC) Microalbumin 4.2 g/dL Normal (applies [facility] (St [Mass/time] in to non-numeric [facility] Urine collected for results) Medical, unspecified PC) duration Bilirubin.total 0.9 Normal (applies [facility] ( St [Mass/volume] in mg/dL to non-numeric [facility] Serum or Plasma results) Medical, PC) Globulin, Total 2.4 g/dL Normal (applies [facility] ( St to non-numeric [facility] results) [facility], ) A/G Ratio 1.8 Normal (applies [facility] (St to non-numeric [facility] results) [facility], ) Aspartate 34 IU/L Normal (applies [facility] (St aminotransferase to non-numeric [facility] [Enzymatic results) Medical, activity/volume] in ) Serum or Plasma Alkaline 50 IU/L Normal (applies [facility] (St phosphatase to non-numeric [facility] [Enzymatic results) Medical, activity/volume] in ) Serum, Plasma or Blood Alanine 49 IU/L Above high [facility] (St aminotransferase normal [facility] [Enzymatic Medical, activity/volume] in ) Serum or Plasma ID Date Data Source [id number] 06/15/2019 12:00:00 AM EST [facility] ([facility], ) Name Value Range Interpretation Description Data Sup porting Code Source(s) Document(s ) Leukocytes 6.0 Normal (applies [facility] (St [#/volume] in x10E3/uL to non-numeric [facility] Blood by results) Medical, ) Automated count Erythrocytes 4.69 Normal (applies [facility] (St [#/volume] in x10E6/uL to non-numeric [facility] Blood by results) [facility], ) Automated count Hematocrit 37.9 % Normal (applies [facility] (St [Volume to non-numeric [facility] Fraction] of results) [facility], ) Blood by Automated count Hemoglobin 13.3 Normal (applies [facility] (St [Mass/volume] in g/dL to non-numeric [facility] Blood results) [facility], ) MCH 28.4 pg Normal (applies [facility] (St to non-numeric [facility] results) [facility], ) MCV 81 fL Normal (applies [facility] (St to non-numeric [facility] results) [facility], ) MCHC 35.1 Normal (applies [facility] (St g/dL to non-numeric [facility] results) [facility], ) RDW 13.9 % Normal (applies [facility] (St to non-numeric [facility] results) [facility], ) Platelets 184 Normal (applies [facility] (St [#/area] in x10E3/uL to non-numeric [facility] Blood by results) [facility], ) Microscopy high power field Neutrophils [#] 51 % Normal (applies [facility] ( St in Body fluid by to non-numeric [facility] Manual count results) [facility], ) Lymphs 40 % Normal (applies [facility] (St to non-numeric [facility] results) [facility], ) Monocytes 7 % Normal (applies [facility] (St [#/volume] in to non-numeric [facility] Cord blood results) [facility], ) Eos 2 % Normal (applies [facility] (St to non-numeric [facility] results) [facility], ) Basos 0 % Normal (applies [facility] (St to non-numeric [facility] results) [facility], ) Neutrophils 3.0 Normal (applies [facility] (St (Absolute) x10E3/uL to non-numeric [facility] results) [facility], ) Eos (Absolute) 0.1 Normal (applies [facility] (S t x10E3/uL to non-numeric [facility] results) [facility], ) Lymphs 2.4 Normal (applies [facility] (St (Absolute) x10E3/uL to non-numeric [facility] results) [facility], ) Monocytes(Absolu 0.4 Normal (applies [facility] (St te) x10E3/uL to non-numeric [facility] results) [facility], ) Immature 0 % Normal (applies [facility] (St Granulocytes to non-numeric [facility] results) [facility], ) Baso (Absolute) 0.0 Normal (applies [facility] ( St x10E3/uL to non-numeric [facility] results) [facility], ) Immature Grans 0.0 Normal (applies [facility] (S t (Abs) x10E3/uL to non-numeric [facility] results) [facility], ) ID Date Data Source [id number] 05/18/2019 12:00:00 AM EST [facility] ([facility], ) Name Value Range Interpretation Code Description Data Zee rce(s) Supporting Document(s ) ID Date Data Source [id number] 05/18/2019 12:00:00 AM EST [facility] ([facility], ) Name Value Range Interpretation Description Data Sup porting Code Source(s) Document(s ) Creatine 1049 U/L Above upper panic [facility] (St Kinase,Total limits [facility], ) ID Date Data Source [id number] 05/18/2019 12:00:00 AM EST [facility] ([facility], ) Name Value Range Interpretation Description Data Sup porting Code Source(s) Document(s ) Sedimentation 6 mm/hr Normal (applies [facility] (St Rate-Westergren to non-numeric [facility] results) Medical, ) ID Date Data Source [id number] 05/18/2019 12:00:00 AM EST [facility] ([facility], ) Name Value Range Interpretation Code Description Data Zee rce(s) Supporting Document(s ) JENNIE Normal (applies to [facility] (St Interpreta non-numeric results) [facility], tion:U PC) ID Date Data Source [id number] 05/18/2019 12:00:00 AM EST [facility] ([facility], ) Name Value Range Interpretation Description Data Sup porting Code Source(s) Document(s ) Prostate 0.4 ng/mL Normal (applies to [facility] (St Specific Ag, non-numeric [facility] Serum results) Medical, ) ID Date Data Source [id number] 05/18/2019 12:00:00 AM EST [facility] ([facility], ) Name Value Range Interpretation Code Description Data Zee rce(s) Supporting Document(s ) TSH 2.160 Normal (applies to [facility] (St uIU/mL non-numeric results) [facility], ) ID Date Data Source [id number] 05/18/2019 12:00:00 AM EST [facility] ([facility], ) Name Value Range Interpretation Description Data Sup porting Code Source(s) Document(s ) Immunofixation Normal (applies [facility] (S t Result, Serum to non-numeric [facility] results) Medical, ) Immunoglobulin G, 1117 Normal (applies [facility] (St Qn, Serum mg/dL to non-numeric [facility] results) Medical, ) Immunoglobulin A, 180 Normal (applies [facility] (St Qn, Serum mg/dL to non-numeric [facility] results) Medical, ) Immunoglobulin M, 27 mg/dL Normal (applies [facility] (St Qn, Serum to non-numeric [facility] results) Medical, ) ID Date Data Source [id number] 05/18/2019 12:00:00 AM EST [facility] ([facility], ) Name Value Range Interpretation Description Data Sup porting Code Source(s) Document(s ) Cholesterol 162 Normal (applies [facility] (St [Mass/volume] in mg/dL to non-numeric [facility] Serum or Plasma results) Medical, ) Triglyceride 73 mg/dL Normal (applies [facility] (St [Mass/volume] in to non-numeric [facility] Serum or Plasma results) Medical, ) VLDL Cholesterol 15 mg/dL Normal (applies [facility] (St Angella to non-numeric [facility] results) Medical, ) HDL Cholesterol 72 mg/dL Normal (applies [facility] ( St to non-numeric [facility] results) Medical, ) LDL Cholesterol 75 mg/dL Normal (applies [facility] ( St Calc to non-numeric [facility] results) Medical, ) ID Date Data Source [id number] 05/18/2019 12:00:00 AM EST [facility] ([facility], ) Name Value Range Interpretation Description Data Sup porting Code Source(s) Document(s ) Protein,To 11.2 mg/dL Normal (applies to [facility] (S t chucky,Urine non-numeric [facility] results) Medical, ) Albumin, U 100.0 % Normal (applies to [facility] (St non-numeric [facility] results) Medical, ) Alpha-1-Gl 0.0 % Normal (applies to [facility] (St obulin, U non-numeric [facility] results) Medical, ) Alpha-2-Gl 0.0 % Normal (applies to [facility] (St obulin, U non-numeric [facility] results) Medical, ) Beta 0.0 % Normal (applies to [facility] (St Globulin, non-numeric [facility] U results) Medical, ) M-Dewey, % Not Observed Normal (applies to [facility] (St non-numeric [facility] results) Medical, ) Gamma 0.0 % Normal (applies to [facility] (St Globulin, non-numeric [facility] U results) Medical, ) Please Normal (applies to [facility] (St note: non-numeric [facility] results) Medical, ) PDF . Normal (applies to [facility] (St non-numeric [facility] results) Medical, ) ID Date Data Source [id number] 05/18/2019 12:00:00 AM EST [facility] ([facility], ) Name Value Range Interpretation Description Data Sup porting Code Source(s) Document(s ) Microalbumin 4.1 g/dL Normal (applies [facility] (St [Mass/time] in to non-numeric [facility] Urine collected results) Medical, for unspecified PC) duration Pgunc-4-Guwtyskr 0.2 g/dL Normal (applies [facility] (St to non-numeric [facility] results) Medical, PC) Vajlp-7-Stdhztem 0.6 g/dL Normal (applies [facility] (St to non-numeric [facility] results) Medical, PC) Gamma globulin 1.0 g/dL Normal (applies [facility] (S t [Mass/volume] by to non-numeric [facility] Electrophoresis results) Medical, in Urine PC) collected for unspecified duration Beta globulin 1.0 g/dL Normal (applies [facility] (St [Mass/volume] in to non-numeric [facility] Urine by results) Medical, Electrophoresis PC) Globulin, Total 2.8 g/dL Normal (applies [facility] ( St to non-numeric [facility] results) Medical, PC) M-Dewey Not Normal (applies [facility] (St Observed to non-numeric [facility] results) Medical, PC) A/G Ratio 1.5 Normal (applies [facility] (St to non-numeric [facility] results) Medical, PC) PDF . Normal (applies [facility] (St to non-numeric [facility] results) Medical, PC) Please note: Normal (applies [facility] (St to non-numeric [facility] results) Medical, PC) ID Date Data Source [id number] 05/18/2019 12:00:00 AM EST [facility] ([facility] Name Value Range Interpretation Description Data Sup porting Code Source(s) Document(s ) Specific gravity 1.022 Normal (applies [facility] (St of Pericardial to non-numeric [facility] fluid by results) Medical, Refractometry PC) Urine-Color Yellow Normal (applies [facility] (St to non-numeric [facility] results) Medical, PC) pH of Lower 5.0 Normal (applies [facility] (St respiratory to non-numeric [facility] specimen results) Medical, PC) WBC Esterase Negative Normal (applies [facility] (St to non-numeric [facility] results) Medical, PC) Appearance of Clear Normal (applies [facility] (St Abdomen to non-numeric [facility] results) Medical, PC) Protein Negative Normal (applies [facility] (St [Mass/volume] in to non-numeric [facility] Lower results) Medical, respiratory PC) specimen Glucose Negative Normal (applies [facility] (St [Mass/volume] in to non-numeric [facility] Urine collected results) Medical, for unspecified PC) duration Ketones Negative Normal (applies [facility] (St [Presence] in to non-numeric [facility] Blood by Tablet results) Medical, PC) Occult Blood Negative Normal (applies [facility] (St to non-numeric [facility] results) Medical, PC) Bilirubin Negative Normal (applies [facility] (St [Presence] in to non-numeric [facility] Peritoneal fluid results) Medical, PC) Nitrite, Urine Negative Normal (applies [facility] (S t to non-numeric [facility] results) Medical, PC) Urobilinogen,Jacinto 0.2 mg/dL Normal (applies [facility] (St i-Qn to non-numeric [facility] results) Medical, PC) Microscopic Normal (applies [facility] (St Examination to non-numeric [facility] results) Medical, PC) ID Date Data Source [id number] 05/18/2019 12:00:00 AM EST [facility] ([facility], ) Name Value Range Interpretation Description Data Sup porting Code Source(s) Document(s ) Glucose 83 mg/dL Normal (applies [facility] (St [Mass/volume] in to non-numeric [facility] Urine collected for results) Medical, unspecified PC) duration Creatinine 1.22 Normal (applies [facility] (St [Interpretation] in mg/dL to non-numeric [facility] Urine results) Medical, PC) Urea nitrogen 10 mg/dL Normal (applies [facility] (St [Mass/volume] in to non-numeric [facility] Serum or Plasma results) Medical, PC) eGFR If Africn Am 83 Normal (applies [facility] (St mL/min/1 to non-numeric [facility] .73 results) Medical, PC) eGFR If NonAfricn 72 Normal (applies [facility] (St Am mL/min/1 to non-numeric [facility] .73 results) Medical, PC) BUN/Creatinine 8 Below low normal [facility] ( St Ratio [facility], PC) Potassium 4.3 Normal (applies [facility] (St [Mass/volume] in mmol/L to non-numeric [facility] Blood results) Medical, PC) Sodium 141 Normal (applies [facility] (St [Moles/volume] in mmol/L to non-numeric [facility] Serum or Plasma results) Medical, ) Carbon dioxide, 23 Normal (applies [facility] ( St total mmol/L to non-numeric [facility] [Moles/volume] in results) Medical, Serum or Plasma PC) Chloride 102 Normal (applies [facility] (St [Moles/volume] in mmol/L to non-numeric [facility] Serum or Plasma results) Medical, ) Calcium 9.9 Normal (applies [facility] (St [Moles/volume] in mg/dL to non-numeric [facility] Urine collected for results) Medical, unspecified ) duration Protein 6.9 g/dL Normal (applies [facility] (St [Mass/volume] in to non-numeric [facility] Serum or Plasma results) Medical, ) Microalbumin 4.8 g/dL Normal (applies [facility] (St [Mass/time] in to non-numeric [facility] Urine collected for results) Medical, unspecified ) duration Globulin, Total 2.1 g/dL Normal (applies [facility] ( St to non-numeric [facility] results) Medical, ) A/G Ratio 2.3 Above high [facility] (St normal [facility], ) Bilirubin.total 1.7 Above high [facility] (St [Mass/volume] in mg/dL normal [facility] Serum or Plasma Medical, ) Alkaline 59 IU/L Normal (applies [facility] (St phosphatase to non-numeric [facility] [Enzymatic results) Medical, activity/volume] in PC) Serum, Plasma or Blood Aspartate 47 IU/L Above high [facility] (St aminotransferase normal [facility] [Enzymatic Medical, activity/volume] in PC) Serum or Plasma Alanine 37 IU/L Normal (applies [facility] (St aminotransferase to non-numeric [facility] [Enzymatic results) Medical, activity/volume] in PC) Serum or Plasma ID Date Data Source [id number] 05/18/2019 12:00:00 AM EST [facility] ([facility], ) Name Value Range Interpretation Description Data Sup porting Code Source(s) Document(s ) Erythrocytes 4.65 Normal (applies [facility] (St [#/volume] in x10E6/uL to non-numeric [facility] Blood by results) Medical, ) Automated count Leukocytes 5.1 Normal (applies [facility] (St [#/volume] in x10E3/uL to non-numeric [facility] Blood by results) [facility], ) Automated count Hemoglobin 13.8 Normal (applies [facility] (St [Mass/volume] in g/dL to non-numeric [facility] Blood results) [facility], ) MCV 85 fL Normal (applies [facility] (St to non-numeric [facility] results) [facility], ) Hematocrit 39.4 % Normal (applies [facility] (St [Volume to non-numeric [facility] Fraction] of results) [facility], ) Blood by Automated count MCH 29.7 pg Normal (applies [facility] (St to non-numeric [facility] results) [facility], ) MCHC 35.0 Normal (applies [facility] (St g/dL to non-numeric [facility] results) [facility], ) RDW 13.8 % Normal (applies [facility] (St to non-numeric [facility] results) [facility], ) Platelets 189 Normal (applies [facility] (St [#/area] in x10E3/uL to non-numeric [facility] Blood by results) [facility], ) Microscopy high power field Neutrophils [#] 56 % Normal (applies [facility] ( St in Body fluid by to non-numeric [facility] Manual count results) [facility], ) Monocytes 9 % Normal (applies [facility] (St [#/volume] in to non-numeric [facility] Cord blood results) [facility]) Lymphs 31 % Normal (applies [facility] (St to non-numeric [facility] results) [facility], ) Eos 4 % Normal (applies [facility] (St to non-numeric [facility] results) [facility], ) Basos 0 % Normal (applies [facility] (St to non-numeric [facility] results) [facility], ) Neutrophils 2.9 Normal (applies [facility] (St (Absolute) x10E3/uL to non-numeric [facility] results) [facility], ) Monocytes(Absolu 0.4 Normal (applies [facility] (St te) x10E3/uL to non-numeric [facility] results) [facility]) Lymphs 1.6 Normal (applies [facility] (St (Absolute) x10E3/uL to non-numeric [facility] results) [facility], ) Baso (Absolute) 0.0 Normal (applies [facility] ( St x10E3/uL to non-numeric [facility] results) Medical, PC) Eos (Absolute) 0.2 Normal (applies [facility] (S t x10E3/uL to non-numeric [facility] results) Medical, PC) Immature Grans 0.0 Normal (applies [facility] (S t (Abs) x10E3/uL to non-numeric [facility] results) Medical, PC) Immature 0 % Normal (applies [facility] (St Granulocytes to non-numeric [facility] results) Medical, ) ID Date Data Source [id number] 05/18/2019 12:00:00 AM EST [facility] ([facility] Name Value Range Interpretation Code Description Data Zee rce(s) Supporting Document(s ) ID Date Data Source [id number] 05/18/2019 12:00:00 AM EST [facility] ([facility]) Name Value Range Interpretation Description Data Sup porting Code Source(s) Document(s ) Creatine 1049 U/L Above upper panic [facility] (St Kinase,Total limits [facility], ) ID Date Data Source [id number] 05/18/2019 12:00:00 AM EST [facility] ([facility]) Name Value Range Interpretation Description Data Sup porting Code Source(s) Document(s ) Sedimentation 6 mm/hr Normal (applies [facility] (St Rate-Westergren to non-numeric [facility] results) Medical, ) ID Date Data Source [id number] 05/18/2019 12:00:00 AM EST [facility] ([facility] Name Value Range Interpretation Code Description Data Zee rce(s) Supporting Document(s ) JENNIE Normal (applies to [facility] (St Interpreta non-numeric results) [facility], tion:U PC) ID Date Data Source [id number] 05/18/2019 12:00:00 AM EST [facility] ([facility]) Name Value Range Interpretation Description Data Sup porting Code Source(s) Document(s ) Prostate 0.4 ng/mL Normal (applies to [facility] (St Specific Ag, non-numeric [facility] Serum results) Medical, ) ID Date Data Source [id number] 05/18/2019 12:00:00 AM EST [facility] ([facility] Name Value Range Interpretation Code Description Data Zee rce(s) Supporting Document(s ) TSH 2.160 Normal (applies to [facility] (St uIU/mL non-numeric results) [facility]) ID Date Data Source [id number] 05/18/2019 12:00:00 AM EST [facility] ([facility]) Name Value Range Interpretation Description Data Sup porting Code Source(s) Document(s ) Immunofixation Normal (applies [facility] (S t Result, Serum to non-numeric [facility] results) Medical, ) Immunoglobulin G, 1117 Normal (applies [facility] (St Qn, Serum mg/dL to non-numeric [facility] results) Medical, ) Immunoglobulin M, 27 mg/dL Normal (applies [facility] (St Qn, Serum to non-numeric [facility] results) Medical, ) Immunoglobulin A, 180 Normal (applies [facility] (St Qn, Serum mg/dL to non-numeric [facility] results) [facility], ) ID Date Data Source [id number] 05/18/2019 12:00:00 AM EST [facility] ([facility] [place] [place], ) Name Value Range Interpretation Description Data Sup porting Code Source(s) Document(s ) Cholesterol 162 Normal (applies [facility] (St [Mass/volume] in mg/dL to non-numeric [facility] Serum or Plasma results) Medical, ) Triglyceride 73 mg/dL Normal (applies [facility] (St [Mass/volume] in to non-numeric [facility] Serum or Plasma results) Medical, ) VLDL Cholesterol 15 mg/dL Normal (applies [facility] (St Angella to non-numeric [facility] results) Medical, ) HDL Cholesterol 72 mg/dL Normal (applies [facility] ( St to non-numeric [facility] results) Medical, ) LDL Cholesterol 75 mg/dL Normal (applies [facility] ( St Calc to non-numeric [facility] results) Medical, ) ID Date Data Source [id number] 05/18/2019 12:00:00 AM EST [facility] ([facility]) Name Value Range Interpretation Description Data Sup porting Code Source(s) Document(s ) Protein,To 11.2 mg/dL Normal (applies to [facility] (S t chucky,Urine non-numeric [facility] results) Medical, ) Albumin, U 100.0 % Normal (applies to [facility] (St non-numeric [facility] results) Medical, PC) Alpha-1-Gl 0.0 % Normal (applies to [facility] (St obulin, U non-numeric [facility] results) Medical, PC) Beta 0.0 % Normal (applies to [facility] (St Globulin, non-numeric [facility] U results) Medical, PC) Alpha-2-Gl 0.0 % Normal (applies to [facility] (St obulin, U non-numeric [facility] results) Medical, PC) Gamma 0.0 % Normal (applies to [facility] (St Globulin, non-numeric [facility] U results) Medical, PC) M-Dewey, % Not Observed Normal (applies to [facility] (St non-numeric [facility] results) Medical, PC) Please Normal (applies to [facility] (St note: non-numeric [facility] results) Medical, PC) PDF . Normal (applies to [facility] (St non-numeric [facility] results) Medical, PC) ID Date Data Source [id number] 05/18/2019 12:00:00 AM EST [facility] Name Value Range Interpretation Description Data Sup porting Code Source(s) Document(s ) Microalbumin 4.1 g/dL Normal (applies [facility] (St [Mass/time] in to non-numeric [facility] Urine collected results) Medical, for unspecified PC) duration Tofvj-2-Sawptkvh 0.6 g/dL Normal (applies [facility] (St to non-numeric [facility] results) Medical, PC) Uhboo-6-Epasnvmk 0.2 g/dL Normal (applies [facility] (St to non-numeric [facility] results) Medical, PC) Beta globulin 1.0 g/dL Normal (applies [facility] (St [Mass/volume] in to non-numeric [facility] Urine by results) Medical, Electrophoresis PC) Gamma globulin 1.0 g/dL Normal (applies [facility] (S t [Mass/volume] by to non-numeric [facility] Electrophoresis results) Medical, in Urine PC) collected for unspecified duration M-Dewey Not Normal (applies [facility] (St Observed to non-numeric [facility] results) Medical, PC) A/G Ratio 1.5 Normal (applies [facility] (St to non-numeric [facility] results) Medical, PC) Globulin, Total 2.8 g/dL Normal (applies [facility] ( St to non-numeric [facility] results) Medical, PC) Please note: Normal (applies [facility] (St to non-numeric [facility] results) Medical, PC) PDF . Normal (applies [facility] (St to non-numeric [facility] results) Medical, PC) ID Date Data Source [id number] 05/18/2019 12:00:00 AM EST [facility] Name Value Range Interpretation Description Data Sup porting Code Source(s) Document(s ) Specific gravity 1.022 Normal (applies [facility] (St of Pericardial to non-numeric [facility] fluid by results) Medical, Refractometry PC) Urine-Color Yellow Normal (applies [facility] (St to non-numeric [facility] results) Medical, PC) pH of Lower 5.0 Normal (applies [facility] (St respiratory to non-numeric [facility] specimen results) Medical, PC) Appearance of Clear Normal (applies [facility] (St Abdomen to non-numeric [facility] results) Medical, PC) WBC Esterase Negative Normal (applies [facility] (St to non-numeric [facility] results) Medical, PC) Protein Negative Normal (applies [facility] (St [Mass/volume] in to non-numeric [facility] Lower results) Medical, respiratory PC) specimen Glucose Negative Normal (applies [facility] (St [Mass/volume] in to non-numeric [facility] Urine collected results) Medical, for unspecified PC) duration Ketones Negative Normal (applies [facility] (St [Presence] in to non-numeric [facility] Blood by Tablet results) Medical, PC) Bilirubin Negative Normal (applies [facility] (St [Presence] in to non-numeric [facility] Peritoneal fluid results) Medical, PC) Occult Blood Negative Normal (applies [facility] (St to non-numeric [facility] results) Medical, PC) Nitrite, Urine Negative Normal (applies [facility] (S t to non-numeric [facility] results) Medical, PC) Urobilinogen,Jacinto 0.2 mg/dL Normal (applies [facility] (St i-Qn to non-numeric [facility] results) Medical, PC) Microscopic Normal (applies [facility] (St Examination to non-numeric [facility] results) Medical, PC) ID Date Data Source [id number] 05/18/2019 12:00:00 AM EST [facility] ([facility], ) Name Value Range Interpretation Description Data Sup porting Code Source(s) Document(s ) Glucose 83 mg/dL Normal (applies [facility] (St [Mass/volume] in to non-numeric [facility] Urine collected for results) Medical, unspecified PC) duration Creatinine 1.22 Normal (applies [facility] (St [Interpretation] in mg/dL to non-numeric [facility] Urine results) Medical, PC) Urea nitrogen 10 mg/dL Normal (applies [facility] (St [Mass/volume] in to non-numeric [facility] Serum or Plasma results) Medical, PC) eGFR If Africn Am 83 Normal (applies [facility] (St mL/min/1 to non-numeric [facility] .73 results) Medical, PC) eGFR If NonAfricn 72 Normal (applies [facility] (St Am mL/min/1 to non-numeric [facility] .73 results) Medical, PC) BUN/Creatinine 8 Below low normal [facility] ( St [facility], PC) Sodium 141 Normal (applies [facility] (St [Moles/volume] in mmol/L to non-numeric [facility] Serum or Plasma results) Medical, PC) Potassium 4.3 Normal (applies [facility] (St [Mass/volume] in mmol/L to non-numeric [facility] Blood results) Medical, PC) Carbon dioxide, 23 Normal (applies [facility] ( St total mmol/L to non-numeric [facility] [Moles/volume] in results) Medical, Serum or Plasma PC) Chloride 102 Normal (applies [facility] (St [Moles/volume] in mmol/L to non-numeric [facility] Serum or Plasma results) Medical, PC) Protein 6.9 g/dL Normal (applies [facility] (St [Mass/volume] in to non-numeric [facility] Serum or Plasma results) Medical, PC) Calcium 9.9 Normal (applies [facility] (St [Moles/volume] in mg/dL to non-numeric [facility] Urine collected for results) Medical, unspecified PC) duration Microalbumin 4.8 g/dL Normal (applies [facility] (St [Mass/time] in to non-numeric [facility] Urine collected for results) Medical, unspecified PC) duration Globulin, Total 2.1 g/dL Normal (applies [facility] ( St to non-numeric [facility] results) [facility], ) A/G Ratio 2.3 Above high [facility] (St normal [facility], ) Bilirubin.total 1.7 Above high [facility] (St [Mass/volume] in mg/dL normal [facility] Serum or Plasma [facility], ) Aspartate 47 IU/L Above high [facility] (St aminotransferase normal [facility] [Enzymatic Medical, activity/volume] in ) Serum or Plasma Alkaline 59 IU/L Normal (applies [facility] (St phosphatase to non-numeric [facility] [Enzymatic results) Medical, activity/volume] in ) Serum, Plasma or Blood Alanine 37 IU/L Normal (applies [facility] (St aminotransferase to non-numeric [facility] [Enzymatic results) Medical, activity/volume] in ) Serum or Plasma ID Date Data Source [id number] 05/18/2019 12:00:00 AM EST [facility] ([facility], ) Name Value Range Interpretation Description Data Sup porting Code Source(s) Document(s ) Leukocytes 5.1 Normal (applies [facility] (St [#/volume] in x10E3/uL to non-numeric [facility] Blood by results) [facility], ) Automated count Erythrocytes 4.65 Normal (applies [facility] (St [#/volume] in x10E6/uL to non-numeric [facility] Blood by results) [facility], ) Automated count Hematocrit 39.4 % Normal (applies [facility] (St [Volume to non-numeric [facility] Fraction] of results) [facility], ) Blood by Automated count Hemoglobin 13.8 Normal (applies [facility] (St [Mass/volume] in g/dL to non-numeric [facility] Blood results) [facility], ) MCV 85 fL Normal (applies [facility] (St to non-numeric [facility] results) [facility], ) MCH 29.7 pg Normal (applies [facility] (St to non-numeric [facility] results) [facility], ) MCHC 35.0 Normal (applies [facility] (St g/dL to non-numeric [facility] results) [facility], ) RDW 13.8 % Normal (applies [facility] (St to non-numeric [facility] results) [facility], ) Platelets 189 Normal (applies [facility] (St [#/area] in x10E3/uL to non-numeric [facility] Blood by results) [facility], ) Microscopy high power field Neutrophils [#] 56 % Normal (applies [facility] ( St in Body fluid by to non-numeric [facility] Manual count results) [facility], ) Lymphs 31 % Normal (applies [facility] (St to non-numeric [facility] results) [facility], ) Monocytes 9 % Normal (applies [facility] (St [#/volume] in to non-numeric [facility] Cord blood results) [facility], ) Basos 0 % Normal (applies [facility] (St to non-numeric [facility] results) [facility], ) Eos 4 % Normal (applies [facility] (St to non-numeric [facility] results) [facility], ) Lymphs 1.6 Normal (applies [facility] (St (Absolute) x10E3/uL to non-numeric [facility] results) [facility], ) Neutrophils 2.9 Normal (applies [facility] (St (Absolute) x10E3/uL to non-numeric Aj[facility] results) [facility], ) Eos (Absolute) 0.2 Normal (applies [facility] (S t x10E3/uL to non-numeric [facility] results) [facility], ) Monocytes(Absolu 0.4 Normal (applies [facility] (St te) x10E3/uL to non-numeric [facility] results) [facility], ) Baso (Absolute) 0.0 Normal (applies [facility] ( St x10E3/uL to non-numeric [facility] results) [facility], ) Immature 0 % Normal (applies [facility] (St Granulocytes to non-numeric [facility] results) [facility], ) Immature Grans 0.0 Normal (applies [facility] (S t (Abs) x10E3/uL to non-numeric [facility] results) [facility], ) ID Date Data Source [id number] 05/18/2019 12:00:00 AM EST [facility] ([facility] ) Name Value Range Interpretation Code Description Data Zee rce(s) Supporting Document(s ) ID Date Data Source [id number] 05/18/2019 12:00:00 AM EST [facility] ([facility] ) Name Value Range Interpretation Description Data Sup porting Code Source(s) Document(s ) Creatine 1049 U/L Above upper panic [facility] (St Kinase,Total limits [facility], ) ID Date Data Source [id number] 05/18/2019 12:00:00 AM EST [facility] ([facility], ) Name Value Range Interpretation Description Data Sup porting Code Source(s) Document(s ) Sedimentation 6 mm/hr Normal (applies [facility] (St Rate-Westergren to non-numeric [facility] results) [facility] [facility], ) ID Date Data Source [id number] 05/18/2019 12:00:00 AM EST MED[facility] ([facility], ) Name Value Range Interpretation Code Description Data Zee rce(s) Supporting Document(s ) ID Date Data Source [id number] 05/18/2019 12:00:00 AM EST [facility] ([facility], ) Name Value Range Interpretation Description Data Sup porting Code Source(s) Document(s ) Prostate 0.4 ng/mL Normal (applies to MEDGEN (St Specific Ag, non-numeric [facility] Serum results) Medical, ) ID Date Data Source [id number] 05/18/2019 12:00:00 AM EST [facility] ([facility], ) Name Value Range Interpretation Code Description Data Zee rce(s) Supporting Document(s ) TSH 2.160 Normal (applies to MEDGEN (St uIU/mL non-numeric results) [facility], ) ID Date Data Source [id number] 05/18/2019 12:00:00 AM EST [facility] ([facility], ) Name Value Range Interpretation Description Data Sup porting Code Source(s) Document(s ) Immunoglobulin A, 180 Normal (applies MEDGEN (St Qn, Serum mg/dL to non-numeric [facility] results) Medical, ) Immunoglobulin G, 1117 Normal (applies MEDGEN (St Qn, Serum mg/dL to non-numeric [facility] results) Medical, ) Immunoglobulin M, 27 mg/dL Normal (applies MEDGEN (St Qn, Serum to non-numeric [facility] results) [facility], ) ID Date Data Source [id number] 05/18/2019 12:00:00 AM EST [facility] ([facility], ) Name Value Range Interpretation Description Data Sup porting Code Source(s) Document(s ) Cholesterol 162 Normal (applies MEDGEN (St [Mass/volume] in mg/dL to non-numeric [facility] Serum or Plasma results) Medical, ) HDL Cholesterol 72 mg/dL Normal (applies MEDGEN ( St to non-numeric [facility] results) Medical, ) Triglyceride 73 mg/dL Normal (applies MEDGEN (St [Mass/volume] in to non-numeric [facility] Serum or Plasma results) Medical, ) VLDL Cholesterol 15 mg/dL Normal (applies MEDGEN (St Angella to non-numeric [facility] results) Medical, ) LDL Cholesterol 75 mg/dL Normal (applies MEDGEN ( St Calc to non-numeric [facility] results) Medical, ) ID Date Data Source [id number] 05/18/2019 12:00:00 AM EST [facility] ([facility] ) Name Value Range Interpretation Description Data Sup porting Code Source(s) Document(s ) Protein,T 11.2 mg/dL Normal (applies to MEDGEN (St otal,Urin non-numeric [facility] e results) Medical, ) Albumin, 100.0 % Normal (applies to MEDGEN (St U non-numeric [facility] results) Medical, ) Alpha-2-G 0.0 % Normal (applies to MEDGEN (St lobulin, non-numeric [facility] U results) Medical, ) Alpha-1-G 0.0 % Normal (applies to MEDGEN (St lobulin, non-numeric [facility] U results) Medical, ) Beta 0.0 % Normal (applies to MED[facility] (St Globulin, non-numeric [facility] U results) Medical, ) Gamma 0.0 % Normal (applies to MEDGEN (St Globulin, non-numeric [facility] U results) Medical, ) M-Dewey, Not Observed Normal (applies to MEDGEN ( St % non-numeric [facility] results) Medical, ) PDF . Normal (applies to [facility] (St non-numeric [facility] results) Medical, ) ID Date Data Source [id number] 05/18/2019 12:00:00 AM EST [facility] ([facility] ) Name Value Range Interpretation Description Data Sup porting Code Source(s) Document(s ) Microalbumin 4.1 g/dL Normal (applies MEDGEN (St [Mass/time] in to non-numeric [facility] Urine collected results) Medical, for unspecified PC) duration Fmzxu-7-Gpqhxqqt 0.2 g/dL Normal (applies MEDGEN (St to non-numeric [facility] results) Medical, PC) Udygo-2-Alumsqig 0.6 g/dL Normal (applies MEDGEN (St to non-numeric [facility] results) Medical, PC) Gamma globulin 1.0 g/dL Normal (applies MEDGEN (S t [Mass/volume] by to non-numeric [facility] Electrophoresis results) Medical, in Urine PC) collected for unspecified duration M-Dewey Not Normal (applies MEDGEN (St Observed to non-numeric [facility] results) Medical, PC) Beta globulin 1.0 g/dL Normal (applies MEDGEN (St [Mass/volume] in to non-numeric [facility] Urine by results) Medical, Electrophoresis PC) A/G Ratio 1.5 Normal (applies MEDGEN (St to non-numeric [facility] results) Medical, PC) Globulin, Total 2.8 g/dL Normal (applies MEDGEN ( St to non-numeric [facility] results) Medical, PC) PDF . Normal (applies [facility] (St to non-numeric [facility] results) Medical, PC) ID Date Data Source [id number] 05/18/2019 12:00:00 AM EST [facility] Name Value Range Interpretation Description Data Sup porting Code Source(s) Document(s ) pH of Lower 5.0 Normal (applies MEDGEN (St respiratory to non-numeric [facility] specimen results) Medical, PC) Specific gravity 1.022 Normal (applies MEDGEN (St of Pericardial to non-numeric [facility] fluid by results) Medical, Refractometry PC) WBC Esterase Negative Normal (applies MEDGEN (St to non-numeric [facility] results) Medical, PC) Urine-Color Yellow Normal (applies [facility] (St to non-numeric [facility] results) Medical, PC) Appearance of Clear Normal (applies [facility] (St Abdomen to non-numeric [facility] results) Medical, PC) Protein Negative Normal (applies MEDGEN (St [Mass/volume] in to non-numeric [facility] Lower results) Medical, respiratory PC) specimen Glucose Negative Normal (applies MEDGEN (St [Mass/volume] in to non-numeric [facility] Urine collected results) Medical, for unspecified PC) duration Occult Blood Negative Normal (applies MED[facility] (St to non-numeric [facility] results) Medical, PC) Ketones Negative Normal (applies MEDGEN (St [Presence] in to non-numeric [facility] Blood by Tablet results) Medical, PC) Bilirubin Negative Normal (applies MED[facility] (St [Presence] in to non-numeric [facility] Peritoneal fluid results) Medical, PC) Urobilinogen,Jacinto 0.2 mg/dL Normal (applies MEDGEN (St i-Qn to non-numeric [facility] results) Medical, PC) Nitrite, Urine Negative Normal (applies [facility] (S t to non-numeric [facility] results) Medical, PC) ID Date Data Source [id number] 05/18/2019 12:00:00 AM EST [facility] ([facility], ) Name Value Range Interpretation Description Data Sup porting Code Source(s) Document(s ) Glucose 83 mg/dL Normal (applies MEDGEN (St [Mass/volume] in to non-numeric [facility] Urine collected for results) Medical, unspecified PC) duration Urea nitrogen 10 mg/dL Normal (applies MEDGEN (St [Mass/volume] in to non-numeric [facility] Serum or Plasma results) Medical, PC) eGFR If NonAfricn 72 Normal (applies MEDGEN (St Am mL/min/1 to non-numeric [facility] .73 results) Medical, PC) Creatinine 1.22 Normal (applies MEDGEN (St [Interpretation] in mg/dL to non-numeric [facility] Urine results) Medical, PC) BUN/Creatinine 8 Below low normal MEDGEN ( St Ratio [facility], PC) eGFR If Africn Am 83 Normal (applies MEDGEN (St mL/min/1 to non-numeric [facility] .73 results) Medical, PC) Potassium 4.3 Normal (applies MEDGEN (St [Mass/volume] in mmol/L to non-numeric [facility] Blood results) Medical, PC) Sodium 141 Normal (applies MEDGEN (St [Moles/volume] in mmol/L to non-numeric [facility] Serum or Plasma results) Medical, PC) Chloride 102 Normal (applies MEDGEN (St [Moles/volume] in mmol/L to non-numeric [facility] Serum or Plasma results) Medical, PC) Carbon dioxide, 23 Normal (applies MEDGEN ( St total mmol/L to non-numeric [facility] [Moles/volume] in results) Medical, Serum or Plasma PC) Calcium 9.9 Normal (applies MEDGEN (St [Moles/volume] in mg/dL to non-numeric [facility] Urine collected for results) [facility], unspecified ) duration Microalbumin 4.8 g/dL Normal (applies MEDGEN (St [Mass/time] in to non-numeric [facility] Urine collected for results) [facility], unspecified ) duration Protein 6.9 g/dL Normal (applies MEDGEN (St [Mass/volume] in to non-numeric [facility] Serum or Plasma results) [facility], ) Globulin, Total 2.1 g/dL Normal (applies MEDGEN ( St to non-numeric [facility] results) [facility], ) A/G Ratio 2.3 Above high MEDGEN (St normal [facility], ) Bilirubin.total 1.7 Above high MEDGEN (St [Mass/volume] in mg/dL normal [facility] Serum or Plasma [facility], ) Alkaline 59 IU/L Normal (applies MEDGEN (St phosphatase to non-numeric [facility] [Enzymatic results) Medical, activity/volume] in ) Serum, Plasma or Blood Aspartate 47 IU/L Above high MEDGEN (St aminotransferase normal [facility] [Enzymatic Medical, activity/volume] in ) Serum or Plasma Alanine 37 IU/L Normal (applies MEDGEN (St aminotransferase to non-numeric [facility] [Enzymatic results) Medical, activity/volume] in ) Serum or Plasma ID Date Data Source [id number] 05/18/2019 12:00:00 AM EST [facility] ([facility], ) Name Value Range Interpretation Description Data Sup porting Code Source(s) Document(s ) Leukocytes 5.1 Normal (applies MEDGEN (St [#/volume] in x10E3/uL to non-numeric [facility] Blood by results) [facility], ) Automated count Hemoglobin 13.8 Normal (applies MEDGEN (St [Mass/volume] in g/dL to non-numeric [facility] Blood results) [facility], ) Hematocrit 39.4 % Normal (applies MEDGEN (St [Volume to non-numeric [facility] Fraction] of results) [facility], ) Blood by Automated count Erythrocytes 4.65 Normal (applies MEDGEN (St [#/volume] in x10E6/uL to non-numeric [facility] Blood by results) [facility], ) Automated count MCH 29.7 pg Normal (applies MEDGEN (St to non-numeric [facility] results) Medical, ) MCV 85 fL Normal (applies MEDGEN (St to non-numeric [facility] results) [facility], ) MCHC 35.0 Normal (applies MEDGEN (St g/dL to non-numeric [facility] results) [facility], ) RDW 13.8 % Normal (applies MEDGEN (St to non-numeric [facility] results) [facility], ) Neutrophils [#] 56 % Normal (applies MEDGEN ( St in Body fluid by to non-numeric [facility] Manual count results) [facility], ) Platelets 189 Normal (applies MEDGEN (St [#/area] in x10E3/uL to non-numeric [facility] Blood by results) Medical, ) Microscopy high power field Eos 4 % Normal (applies MEDGEN (St to non-numeric [facility] results) [facility], ) Lymphs 31 % Normal (applies MEDGEN (St to non-numeric [facility] results) Medical, ) Monocytes 9 % Normal (applies MEDGEN (St [#/volume] in to non-numeric [facility] Cord blood results) [facility], ) Neutrophils 2.9 Normal (applies MEDGEN (St (Absolute) x10E3/uL to non-numeric [facility] results) Medical, ) Basos 0 % Normal (applies MEDGEN (St to non-numeric [facility] results) [facility], ) Monocytes(Absolu 0.4 Normal (applies MEDGEN (St te) x10E3/uL to non-numeric [facility] results) Medical, ) Lymphs 1.6 Normal (applies MEDGEN (St (Absolute) x10E3/uL to non-numeric [facility] results) Medical, ) Baso (Absolute) 0.0 Normal (applies MEDGEN ( St x10E3/uL to non-numeric [facility] results) Medical, ) Immature 0 % Normal (applies MEDGEN (St Granulocytes to non-numeric [facility] results) [facility], ) Eos (Absolute) 0.2 Normal (applies MEDGEN (S t x10E3/uL to non-numeric [facility] results) Medical, ) Immature Grans 0.0 Normal (applies MEDGEN (S t (Abs) x10E3/uL to non-numeric [facility] results) [facility], ) Procedure Social History Code Duration Value Status Description Data Source(s ) Smoking 02/04/2020 former smoker completed former smoker [facility]/04/2020 Unknown if ever completed Unknown if ever MEDG EN ([facility] 12:00:00 AM EDT smoked smoked [facility]) Smoking 01/25/2020 former smoker completed former smoker MED[facility] ( [facility] 12:00:00 AM EDT [facility]) Smoking 01/25/2020 Unknown if ever completed Unknown if ever MEDG EN ([facility] 12:00:00 AM EDT smoked smoked [facility]) Smoking 12/27/2019 former smoker completed former smoker [facility] ( [facility] Sm[facility] 12/27/2019 Unknown if ever completed Unknown if ever MEDG EN ([facility] 12:00:00 AM EDT smoked smoked [facility]) Vital Signs ID Date Data Source UNK Name Value Range Interpretation Code Description Data Source(s) Heart rate 76 /min 76 /min [facility] ([facility]) Respiratory rate 15 /min 15 /min [facility] ( [facility]) Body mass index 33.9 kg/m2 33.9 kg/m2 MEDGEN (S t (BMI) [Ratio] [facility]) Diastolic blood 90 mm[Hg] 90 mm[Hg] MEDGEN (S pressure [facility]) Systolic blood 130 mm[Hg] 130 mm[Hg] MEDGEN ([facility]) Body weight 257 lb 257 lb MED[facility] ([facility]) Body height 73 in 73 in [facility] ([facility]) Heart rate 77 /min 77 /min [facility] ([facility]) Respiratory rate 14 /min 14 /min MED[facility] ( [facility]) Body temperature 98.9 F 98.9 F MEDGEN ( [facility]) Inhaled oxygen 98 % 98 % MEDGEN ([facility]) Body mass index 33.6 kg/m2 33.6 kg/m2 MEDGEN (S t (BMI) [Ratio] [facility]) Diastolic blood 82 mm[Hg] 82 mm[Hg] MEDGEN (S t pressure [facility]) Systolic blood 130 mm[Hg] 130 mm[Hg] MEDGEN ([facility]) Body weight 255 lb 255 lb MEDGEN ([facility]) Body height 73 in 73 in MED[facility] ([facility]) Heart rate 77 /min 77 /min MED[facility] ([facility]) Respiratory rate 14 /min 14 /min MED[facility] ( [facility]) Body temperature 98.9 F 98.9 F MEDGEN ( [facility]) Inhaled oxygen 98 % 98 % MEDGEN ([facility], ) Body mass index 33.6 kg/m2 33.6 kg/m2 MEDGEN (S t (BMI) [Ratio] [facility], ) Diastolic blood 82 mm[Hg] 82 mm[Hg] MEDGEN (S t pressure [facility]) Systolic blood 130 mm[Hg] 130 mm[Hg] MEDGEN ([facility]) Body weight 255 lb 255 lb MED[facility] ([facility]) Body height 73 in 73 in MED[facility] ([facility]) Heart rate 77 /min 77 /min MED[facility] ([facility]) Respiratory rate 14 /min 14 /min MED[facility] ( [facility]) Body temperature 98.9 F 98.9 F MEDGEN ( [facility]) Inhaled oxygen 98 % 98 % MEDGEN ([facility], ) Body mass index 33.6 kg/m2 33.6 kg/m2 MEDGEN (S t (BMI) [Ratio] [facility], ) Diastolic blood 82 mm[Hg] 82 mm[Hg] MEDGEN (S t pressure [facility]) Systolic blood 130 mm[Hg] 130 mm[Hg] MEDGEN ([facility]) Body weight 255 lb 255 lb MED[facility] ([facility]) Body height 73 in 73 in MEDGEN ([facility]) Heart rate 86 /min 86 /min MED[facility] ([facility]) Respiratory rate 14 /min 14 /min MED[facility] ( [facility]) Body temperature 98.9 F 98.9 F MEDGEN ( [facility]) Inhaled oxygen 98 % 98 % MEDGEN ([facility], ) Body mass index 33.6 kg/m2 33.6 kg/m2 MEDGEN (S t (BMI) [Ratio] [facility], ) Diastolic blood 82 mm[Hg] 82 mm[Hg] MEDGEN (S t [facility]) Systolic blood 120 mm[Hg] 120 mm[Hg] MEDGEN ([facility]) Body weight 255 lb 255 lb MEDGEN ([facility]) Body height 73 in 73 in MEDGEN ([facility]) Heart rate 86 /min 86 /min MED[facility] ([facility]) Respiratory rate 14 /min 14 /min MEDGEN ( [facility]) Body temperature 98.9 F 98.9 F MEDGEN ( [facility]) Inhaled oxygen 98 % 98 % MEDGEN ([facility]) Body mass index 33.6 kg/m2 33.6 kg/m2 MEDGEN (S t (BMI) [Ratio] [facility]) Diastolic blood 82 mm[Hg] 82 mm[Hg] MEDGEN (S [facility]) Systolic blood 120 mm[Hg] 120 mm[Hg] MEDGEN ([facility]) Body weight 255 lb 255 lb MEDGEN ([facility]) Body height 73 in 73 in MEDGEN ([facility]) Heart rate 86 /min 86 /min MED[facility] ([facility]) Respiratory rate 14 /min 14 /min MEDGEN ( [facility]) Body temperature 98.9 F 98.9 F MEDGEN ( [facility]) Inhaled oxygen 98 % 98 % MEDGEN ([facility]) Body mass index 33.6 kg/m2 33.6 kg/m2 MEDGEN (S t (BMI) [Ratio] [facility]) Diastolic blood 82 mm[Hg] 82 mm[Hg] MEDGEN (S t [facility]) Systolic blood 120 mm[Hg] 120 mm[Hg] MEDGEN ([facility]) Body weight 255 lb 255 lb MEDGEN ([facility]) Body height 73 in 73 in MEDGEN ([facility]) Heart rate 74 /min 74 /min MED[facility] ([facility]) Respiratory rate 14 /min 14 /min MEDGEN ( [facility]) Inhaled oxygen 98 % 98 % MEDGEN ([facility], ) Body mass index 33.6 kg/m2 33.6 kg/m2 MEDGEN (S t (BMI) [Ratio] [facility], ) Diastolic blood 82 mm[Hg] 82 mm[Hg] MEDGEN (S t pressure [facility]) Systolic blood 120 mm[Hg] 120 mm[Hg] MEDGEN ([facility]) Body weight 255 lb 255 lb MEDGEN ([facility]) Body height 73 in 73 in MEDGEN ([facility]) Heart rate 74 /min 74 /min MEDGEN ([facility]) Respiratory rate 14 /min 14 /min MEDGEN ( [facility]) Inhaled oxygen 98 % 98 % MEDGEN ([facility]) Body mass index 33.6 kg/m2 33.6 kg/m2 MEDGEN (S t (BMI) [Ratio] [facility], ) Diastolic blood 82 mm[Hg] 82 mm[Hg] MEDGEN (S t pressure [facility]) Systolic blood 120 mm[Hg] 120 mm[Hg] MEDGEN ([facility]) Body weight 255 lb 255 lb MEDGEN ([facility]) Body height 73 in 73 in MEDGEN ([facility]) Heart rate 74 /min 74 /min MED[facility] ([facility]) Respiratory rate 14 /min 14 /min MEDGEN ( [facility]) Inhaled oxygen 98 % 98 % MEDGEN ([facility]) Body mass index 33.6 kg/m2 33.6 kg/m2 MEDGEN (S t (BMI) [Ratio] [facility], ) Diastolic blood 82 mm[Hg] 82 mm[Hg] MEDGEN (S t pressure [facility] ) Systolic blood 120 mm[Hg] 120 mm[Hg] [facility] ([facility] , ) Body weight [address] [facility] ([facility] , ) Body height [address] [facility] ([facility] , )
[2020-03-06 14:21] LABS: ALBUMIN 3.7 g/dl (3.4-5.0); BILIRUBIN,TOTAL 0.7 mg/dL (0.2-1); CALCIUM 9.2 mg/dL (8.5-10.1); POTASSIUM 4.1 mmol/L (3.5-5.1); TOT PROT 7.5 g/dl (6.4-8.2)
[2020-03-06] MEDS ORDERED: LIDOCAINE 1%/EPI 1:100000 (20 ML MULTI DOSE VIAL) IJ ONE (14:28)
[2020-03-06] MEDS ORDERED: LIDOCAINE 1%/EPI 1:100000 (20 ML MULTI DOSE VIAL) ONE (14:28)
== END 2020-03-06 15:15 | disposition home or self-care (01) ==
LOC: JERFT 12:52
PROC: 3E0233Z Introduction of Anti-inflammatory into Muscle, Percutaneous Approach (ICD-10-PCS; principal; 2020-03-06)
DX: L02.212 Cutaneous abscess of back [any part, except buttock and flank] (principal)
CPT/HCPCS: 36415; 80053; 85025; 87070; 87186; 87205; 96372; 99284-25

== ENCOUNTER 2020-03-08 10:38 | Emergency (ER) | payer OTHER ==
[2020-03-08 10:48] VITALS: BP 140/76; PULSE 60; TEMP 98.3; BMI 34.9
--- NOTE | 2020-03-08 11:18 | PDOC ---
History of Present Illness - General Chief Complaint: Revisit,Wound Recheck Stated Complaint: LWR BACK PAIN Time Seen by Provider: 03/08/20 10:57 History Source: Patient Exam Limitations: No Limitations - History of Present Illness Initial Comments: 03/08/20 11:14 Patient is a 45-year-old male who presents to the ED for a wound check and packing change to his left flank after having an abscess I&D 2 days ago. The patient states he has been taking his antibiotics as prescribed. He has been taking Bactrim. He denies any fevers or chills. He states the pain has gotten better. Past History - Medical History Allergies/Adverse Reactions: Allergies Allergy/AdvReac Type Severity Reaction Status Date / Time No Known Drug Allergies Allergy Verified 03/08/20 10:40 Home Medications: Ambulatory Orders Cephalexin Monohydrate [Keflex -] 500 mg PO Q8H #15 capsule 12/16/19 Hydroxyzine HCl 25 mg PO TID PRN #12 tablet 12/16/19 Anemia: No Asthma: No Cancer: No Cardiac Disorders: No CVA: No COPD: No CHF: No Dementia: No Diabetes: No GI Disorders: No Disorders: No HTN: No Hypercholesterolemia: No Liver Disease: No Seizures: No Thyroid Disease: No - Surgical History Abdominal Surgery: Yes (hernia) - Psycho-Social/Smoking History Smoking History: Never smoked Have you smoked in the past 12 months: No Number of Cigarettes Smoked Daily: 0 If you are a former smoker, when did you quit?: 6 'Breaking Loose' booklet given: 07/06/17 - Substance Abuse Hx (Audit-C & DAST Scrn) How often the patient has a drink containing alcohol: Never Score: In Men: 4 or > Positive; In Women: 3 or > Positive: 0 Screen Result (Pos requires Nsg. Audit-10AR): Negative In the last yr the pt used illegal drug/Rx for NonMed reason: No Score: Yes response is considered Positive: 0 Screen Result (Positive result requires Nsg. DAST-10): Negative Review of Systems - Review of Systems Comments:: 03/08/20 11:15 - Review of Systems Able to Perform ROS?: Yes Constitutional: No: Fever, Chills, Loss of Appetite, Night Sweats, Weakness HEENTM: No: Eye Pain, Vision changes, Ear Pain, Throat Pain, Throat Swelling, Mouth Pain, Difficulty Swallowing Respiratory: No: Cough, Shortness of Breath, Wheezing, Sputum Production Cardiac (ROS): No: Chest Pain, Chest Tightness, Palpitations, Irregular Heart Beat, Edema ABD/GI: No: Nausea, Vomiting, Abdominal Pain, Diarrhea : No Dysuria, No Hematuria, No Frequency, No Urgency Musculoskeletal: No: Muscle Pain, Back Pain, Joint Pain, Muscle Weakness, Neck Pain Integumentary: No: Lesions, Rash; positive: Wound check and packing change Neurological: No: Headache, Numbness, Tingling, Weakness, Speech Difficulties *Physical Exam - Vital Signs Last Vital Signs Temp Pulse Resp BP Pulse Ox 98.3 F 60 18 140/76 100 03/08/20 10:40 03/08/20 10:40 03/08/20 10:40 03/08/20 10:40 03/08/20 10:40 - Physical Exam 03/08/20 11:15 - Physical Exam General Appearance: Nourished, Appropriately Dressed, No Distress HEENT: EOMI, Normal Voice, Hearing Grossly Normal Neck: Supple, No Lymphadenopathy (R), No Lymphadenopathy (L), No Rigidity, No Decreased range of motion Respiratory/Chest: Lungs Clear, Normal Breath Sounds. No Respiratory Distress, No Accessory Muscle Use Cardiovascular: Regular Rhythm, Regular Rate, S1, S2 Musculoskeletal: Normal Inspection. No Decreased Range of Motion Extremity: Normal Capillary Refill, Normal Inspection Integumentary: Normal Color, Dry. No Rash; left flank abscess packing removed and significant pus still draining. Remainder of pus expressed until only blood remain clear. Quarter inch iodoform packing placed again and sterile 4 x 4 dressing placed. No surrounding erythema appreciated. Neurologic: leaf stamper II-XII NML intact, Fully Oriented, Alert, Normal Mood/Affect, Normal Response Medical Decision Making - Medical Decision Making 03/08/20 11:16 Assessment: Patient is a 45-year-old female with a left flank abscess wound check and packing change. Plan: -Packing change performed -Patient given wound care instructions including to remove the packing in 2 days. He does not have to return for packing change or wound check unless his symptoms worsen. -He has been instructed to continue his Bactrim -He understands and agrees with this treatment plan and he is stable for discharge. Discharge - Discharge Information Problems reviewed: Yes Clinical Impression/Diagnosis: Wound check, abscess Condition: Stable Disposition: HOME - Follow up/Referral Referrals: Tatyana Sargent [Primary Care Provider] - 2 Days - Patient Discharge Instructions Patient Printed Discharge Instructions: DI for Incision and Drainage of a Skin Abscess Additional Instructions: Keep the wound clean and dry. You should remove the packing, or have someone else remove the packing, in 2 days. All the have to do is pull on the end that is sticking out of the wound gently until it is all out. The packing is one contiguous piece of material. After 2 days you should wash the wound daily with warm water and soap. You can allow water to get into the wound after 2 days to help keep it clean. Continue your antibiotics as prescribed. Follow-up with your primary care doctor within 1 to 2 days for repeat evaluation. - Post Discharge Activity Work/Back to School Note: Back to Work
--- OUTSIDE RECORDS SUMMARY | 2020-03-08 11:27 | XMS ---
:1975 [facility] Providers Name Role Phone Androne, [...] is protected by Article 27-F of the [facility] Public Health law. If you continue you may haveaccess to information: Regarding HIV / AIDS; Provided by facilities licensed or operated by the [facility] Office of Mental Health; or Provided by the [facility] Office for People With Developmental Disabilities. If such information is present, then the following [facility] mandated warning applies: This information has been [...] law may result in a fine or halfway sentence or both. A general authorization for the release of medical or other information is NOT sufficient authorization for further disclosure. Encounters Encounter Providers Location Date Indications Data Source(s ) Attender: Cindy 12/27/2019 [facility] ([facility] 12:00:00 AM EDT Medical, [facility]) Office Medications Medication Brand Start Product Dose Route Administrative Pharmacy [facility] Indications Reaction Description Data Name Date Form Instructions Instructions Source(s) Sulfamethox BACTRI 01/31/ TABLET 20 complet BACT RIM DS MED[facility] (St azole 800 M 2020 ed [facility] MG / DS:849 12:00: Medical, Trimethopri 580 00 AM PC) m 160 MG EDT Oral Tablet [Bactrim] BACTRIM [id number] Azithromyci ZITHRO complet ZITHRO MAX MEDGEN (St n 250 MG MAX 2020 ed Z-ALEKS [facility] Oral Tablet Z-ALEKS: 12:00: Medi angella, ZITHROMAX [id number] 00 AM PC) Z-ALEKS:[id number] EST 0 Azithromyci ZITHRO complet ZITHRO MAX MEDGEN (St n 250 MG MAX 2020 ed Z-ALEKS [facility] Oral Tablet Z-ALEKS: 12:00: Medi angella, ZITHROMAX [id number] 00 AM PC) Z-ALEKS:[id number] EST 0 Azithromyci ZITHRO complet ZITHRO MAX MEDGEN (St n 250 MG MAX 2020 ed Z-ALEKS [facility] Oral Tablet Z-ALEKS: 12:00: Medi angella, ZITHROMAX [id number] 00 AM PC) Z-ALEKS:[id number] EST 0 Insurance Providers Payer name Policy type Policy ID Covered Covered green party's Policy P susana / Coverage green party ID relationship to Mondragon Inf ormation type mondragon CALVIN [id number] SP [id number] 800 HEALTH NON CAP CALIVN [id number] CARE POWER SIMPSON [id number] SP [id number] 800 HEALTH NON CAP CALVIN [id number] 1 [id number] 800 CARE [place] CALIVN [id number] SP [id number] 800 HEALTH NON CAP CALVIN [id number] 1 [id number] 800 CARE Problems, Conditions, and Diagnoses Code Display Name Description Problem Type Effective Data Sour ce(s) Dates R60.0 Localized edema LOCALIZED EDEMA Problem 02/01/2020 MEDG EN (St 12:00:00 AM [facility], ) I10 Essential ESSENTIAL Problem 02/01/2020 MEDGEN (St (primary) (PRIMARY) 12:00:00 AM [facility] hypertension HYPERTENSION [facility]) L03.90 Cellulitis, CELLULITIS, Problem 02/01/2020 MED[facility] (St unspecified UNSPECIFIED 12:00:00 AM [facility], ) L02.213 Cutaneous abscess CUTANEOUS ABSCESS Problem 12/27/2019 MEDGEN (St of chest wall OF CHEST WALL 12:00:00 AM [facility], ) L02.213 Cutaneous abscess CUTANEOUS ABSCESS Problem 12/27/2019 MEDGEN (St of chest wall OF CHEST WALL 12:00:00 AM [facility], ) L02.213 Cutaneous abscess CUTANEOUS ABSCESS Problem 12/27/2019 MEDGEN (St of chest wall OF CHEST WALL 12:00:00 AM [facility], ) R94.5 Abnormal results ABNORMAL RESULTS Problem 06/15/2019 ME DGEN (St of liver function OF LIVER FUNCTION 12:00:00 AM [facility] STUDIES [facility], ) M79.671 Pain in right foot PAIN IN RIGHT FOOT Problem 0 MEDGEN (St 12:00:00 AM [facility], ) M20.11 Hallux valgus HALLUX VALGUS Problem 06/15/2019 MEDGEN ( St (acquired), right (ACQUIRED), RIGHT 12:00:00 AM [facility] foot FOOT [facility], ) M1A.00X0 Idiopathic chronic IDIOPATHIC CHRONIC Problem [...] 12:00:00 AM [facility] foot FOOT EST Medical, PC) M1A.00X0 Idiopathic chronic IDIOPATHIC CHRONIC Problem 0 [...] GENERAL ADULT 12:00:00 AM [facility] Medical, ) examination with EXAMINATION WITH abnormal findings ABNORMAL FINDINGS M54.5 Low back pain LOW BACK PAIN Problem 05/18/2019 MEDGEN ( St 12:00:00 AM [facility] EST Medical, ) Z00.01 Encounter for ENCOUNTER FOR Problem 05/18/2019 MEDGEN ( St general adult GENERAL ADULT 12:00:00 AM [facility] Medical, ) examination with EXAMINATION WITH abnormal findings ABNORMAL FINDINGS Surgeries/Procedures Procedure Description Date Indications Data Source(s) Documentation of current 02/01/2020 MED GEN ([facility] medications (procedure) 12:00:00 AM EDJENI Ramirez) Documentation of current 02/01/2020 MED [facility] ([facility] medications (procedure) 12:00:00 AM EDT M edical, PC) Documentation of current 02/01/2020 MED [facility] ([facility] medications (procedure) 12:00:00 AM EDT [facility] stafford, PC) Documentation of current 02/01/2020 [facility] ([facility] medications (procedure) 12:00:00 AM EDT Thomas stafford PC) Documentation of current 02/01/2020 [facility] ([facility] medications (procedure) 12:00:00 AM EDT Thomas stafford PC) Documentation of current 02/01/2020 [facility] ([facility] medications (procedure) 12:00:00 AM EDT Thomas stafford PC) Documentation of current 02/01/2020 [facility] ([facility] medications (procedure) 12:00:00 AM EDT Thomas stafford PC) OFFICE OUTPATIENT VISIT 25 02/01/2020 Thomas STORM ([facility] MINUTES 12:00:00 AM EDT Medical, PC) COLLECTION VENOUS BLOOD 02/01/2020 MEDG EN ([facility] VENIPUNCTURE 12:00:00 AM T Medical, PC) Documentation of current 12/27/2019 MED [facility] ([facility] medications (procedure) 12:00:00 AM EDT nydia PC) Documentation of current 12/27/2019 MED [facility] ([facility] medications (procedure) 12:00:00 AM EDT JENI stafford) Documentation of current 12/27/2019 MED [facility] ([facility] medications (procedure) 12:00:00 AM EDT nydia PC) Documentation of current 12/27/2019 MED [facility] ([facility] medications (procedure) 12:00:00 AM EDT Thomas stafford PC) OFFICE OUTPATIENT VISIT 25 12/27/2019 Thomas QUINTANAN ([facility] MINUTES 12:00:00 AM T Medical, PC) Documentation of current 12/27/2019 MED GEN ([facility] medications (procedure) 12:00:00 AM EDT Thomas stafford, PC) Documentation of current 12/27/2019 MED GEN ([facility] medications (procedure) 12:00:00 AM EDT nydia, PC) Documentation of current 12/27/2019 MED GEN ([facility] medications (procedure) 12:00:00 AM EDT nydia, PC) OFFICE OUTPATIENT VISIT 25 12/27/2019 M EDGEN ([facility] MINUTES 12:00:00 AM EDT Medical, PC) [...] PC) OFFICE OUTPATIENT VISIT 25 06/15/2019 Thomas STORM ([facility] MINUTES 12:00:00 AM EST Medical, PC) OFFICE OUTPATIENT NEW 20 06/15/2019 MED GEN ([facility] MINUTES 12:00:00 AM EST Medical, PC) COLLECTION VENOUS BLOOD 06/15/2019 MEDG EN ([facility] VENIPUNCTURE 12:00:00 AM EST Medical, PC) ARTHROCENTESIS 06/15/2019 [facility] ASPIR&/INJECTION SMALL 12:00:00 AM EST Me moses, PC) JT/BURSA Documentation of current 06/15/2019 [...] GEN ([facility] medications (procedure) 12:00:00 AM EST Thmoas stafford, PC) Documentation of current 06/15/2019 MED GEN ([facility] medications (procedure) 12:00:00 AM EST Thomas stafford, PC) Documentation of current 06/15/2019 MED GEN ([facility] medications (procedure) 12:00:00 AM EST Thomas stafford, PC) OFFICE OUTPATIENT VISIT 25 06/15/2019 M EDGEN ([facility] MINUTES 12:00:00 AM EST Medical, PC) OFFICE OUTPATIENT NEW 20 06/15/2019 MED GEN ([facility] MINUTES 12:00:00 AM EST Medical, PC) COLLECTION VENOUS BLOOD 06/15/2019 MEDG EN ([facility] VENIPUNCTURE 12:00:00 AM EST Medical, PC) ARTHROCENTESIS 06/15/2019 [facility] ([facility] ASPIR&/INJECTION SMALL 12:00:00 AM EST Me moses, PC) JT/BURSA Documentation of current 06/15/2019 [...] MEDG EN ([facility] VENIPUNCTURE 12:00:00 AM EST Kennedy, PC) ARTHROCENTESIS 06/15/2019 [facility] ([facility] ASPIR&/INJECTION SMALL 12:00:00 AM NELSON moses, PC) JT/BURSA Documentation of current 05/18/2019 MED GEN ([facility] medications (procedure) 12:00:00 AM JENI Romero) Documentation of current 05/18/2019 MED GEN ([facility] (procedure) [facility]:00:00 [facility] OFF[facility] OUTPATIENT NEW 30 05/18/2019 MED GEN ([facility] MINUTES 12:00:00 AM EST [facility], ) COLLECTION VENOUS BLOOD 05/18/2019 MEDG EN ([facility] VENIPUNCTURE 12:00:00 AM EST [facility], ) Documentation of current 05/18/2019 MED GEN ([facility] medications (procedure) 12:00:00 [facility] Documentation of current 05/18/2019 MED GEN ([facility] medications (procedure) 12:00:00 AM EST [facility], ) OFFICE OUTPATIENT NEW 30 05/18/2019 MED GEN ([facility] MINUTES 12:00:00 AM [facility], ) COLLECTION VENOUS BLOOD 05/18/2019 MEDG EN ([facility] VENIPUNCTURE 12:00:00 AM [facility], ) Documentation of current 05/18/2019 MED GEN ([facility] medications (procedure) 12:00:00 AM EST [facility], ) Documentation of current 05/18/2019 MED GEN ([facility] medications (procedure) 12:00:00 AM EST [facility], ) OFFICE OUTPATIENT NEW 30 05/18/2019 MED GEN ([facility] MINUTES 12:00:00 AM [facility], ) COLLECTION VENOUS BLOOD 05/18/2019 MEDG EN ([facility] VENIPUNCTURE 12:00:00 AM [facility], ) Results ID Date Data Source [id number] 02/01/2020 12:00:00 AM EDT [facility] ([facility], ) Name Value Range Interpretation Description Data Sup porting Code Source(s) Document(s ) Sedimentation 6 mm/hr Normal (applies MEDGEN (St Rate-Westergren to non-numeric [facility] results) Medical, PC) ID Date Data Source [id number] 02/01/2020 12:00:00 AM EDT [facility] ([facility], ) Name Value Range Interpretation Description Data Sup porting Code Source(s) Document(s ) Hemoglobin A1c 5.6 % Normal (applies to MED[facility] (St in Blood non-numeric [facility] results) Medical, PC) ID Date Data Source [id number] 02/01/2020 12:00:00 AM EDT MEDGEN (St Sally [...] non-numeric [facility] results) Medical, ) A/G Ratio 1.8 Normal (applies MEDGEN (St to non-numeric [facility] results) [facility], ) Bilirubin.total 1.1 Normal (applies MEDGEN ( St [Mass/volume] in mg/dL to non-numeric [facility] Serum or Plasma results) [facility], ) Alkaline 60 IU/L Normal (applies MEDGEN [...] Serum or Plasma ID Date Data Source [id number] 02/01/2020 12:00:00 AM EDT [facility] ([facility], ) Name Value Range Interpretation Description Data Sup porting Code Source(s) Document(s ) Leukocytes 6.7 Normal (applies MEDGEN (St [#/volume] in x10E3/uL to non-numeric [facility] Blood by results) [facility], ) Automated count Hemoglobin 13.8 Normal (applies MEDGEN (St [Mass/volume] in g/dL to non-numeric [facility] Blood results) [facility], ) Erythrocytes 4.67 Normal (applies MEDGEN (St [#/volume] in x10E6/uL to non-numeric [facility] Blood by results) [facility], ) Automated count Hematocrit 41.1 % Normal (applies MEDGEN (St [Volume to non-numeric [facility] Fraction] of results) [facility], ) Blood by Automated count MCH 29.6 pg Normal (applies MEDGEN (St to non-numeric [facility] results) [facility], ) MCV 88 fL Normal (applies MEDGEN (St to non-numeric [facility] results) [facility], ) MCHC 33.6 Normal (applies MEDGEN (St g/dL to non-numeric [facility] results) [facility], ) RDW 14.3 % Normal (applies MEDGEN (St to non-numeric [facility] results) [facility], ) Platelets 214 Normal (applies MEDGEN (St [#/area] in x10E3/uL to non-numeric [facility] Blood by results) Medical, ) Microscopy high power field Neutrophils [#] 65 % Normal (applies MEDGEN ( St in Body fluid by to non-numeric [facility] Manual count results) [facility], ) Monocytes 8 % Normal (applies MEDGEN (St [#/volume] in to non-numeric [facility] Cord blood results) [facility], ) Lymphs 24 % Normal (applies MEDGEN (St to non-numeric [facility] results) Medical, ) Eos 3 % Normal (applies [facility] (St to non-numeric [facility] results) Medical, ) Basos 0 % Normal (applies MEDGEN (St to non-numeric [facility] results) [facility], ) Lymphs 1.6 Normal (applies MEDGEN (St (Absolute) x10E3/uL to non-numeric [facility] results) [facility], ) Neutrophils 4.4 Normal (applies MEDGEN (St (Absolute) x10E3/uL to non-numeric [facility] results) [facility], ) Monocytes(Absolu 0.5 Normal (applies MEDGEN (St te) x10E3/uL to non-numeric [facility] results) Medical, ) Baso (Absolute) 0.0 Normal (applies MEDGEN ( St x10E3/uL to non-numeric [facility] results) [facility], ) Eos (Absolute) 0.2 Normal (applies MEDGEN (S t x10E3/uL to non-numeric [facility] results) [facility], ) Immature Grans 0.0 Normal (applies MEDGEN (S t (Abs) x10E3/uL to non-numeric [facility] results) [facility], ) Immature 0 % Normal (applies MEDGEN (St Granulocytes to non-numeric [facility] results) [facility], ) ID Date Data Source [id number] 06/15/2019 12:00:00 AM EST [facility] ([facility], ) Name Value Range Interpretation Description Data Sup porting Code Source(s) Document(s ) Hepatitis B Negative Normal (applies MEDGEN (St virus core Ab to non-numeric [facility] [Presence] in results) [facility], ) Serum or Plasma by Immunoassay ID Date Data Source [id number] 06/15/2019 12:00:00 AM EST [facility] ([facility], ) Name Value Range Interpretation Code Description Data Supporting Source(s) Document(s ) HBsAg Negative Normal (applies to MEDGEN (St Screen non-numeric [facility] results) [facility], ) ID Date Data Source [id number] 06/15/2019 12:00:00 AM EST [facility] ([facility], ) Name Value Range Interpretation Description Data Sup porting Code Source(s) Document(s ) Aldolase 7.3 U/L Normal (applies to MEDGEN (St [Enzymatic non-numeric [facility] activity/mass results) [facility], ) ] in Red Blood Cells ID Date Data Source [id number] 06/15/2019 12:00:00 AM EST [facility] ([facility], ) Name Value Range Interpretation Description Data Sup porting Code Source(s) Document(s ) Creatine 201 U/L Normal (applies to MEDGEN (St Kinase,Total non-numeric [facility] results) [facility], ) ID Date Data Source [id number] 06/15/2019 12:00:00 AM EST [facility] ([facility], ) Name Value Range Interpretation Code Description Data Supporting Source(s) Document(s ) CINDY Direct Negative Normal (applies to MEDGEN (St non-numeric [facility] results) [facility], ) ID Date Data Source [id number] 06/15/2019 12:00:00 AM EST [facility] ([facility], ) Name Value Range Interpretation Code Description Data Zee rce(s) Supporting Document(s ) Uric Acid 6.2 mg/dL Normal (applies to MEDGEN (St non-numeric [facility] results) [facility], ) ID Date Data Source [id number] 06/15/2019 12:00:00 AM EST [facility] ([facility], ) Name Value Range Interpretation Code Description Data Zee rce(s) Supporting Document(s ) Comment: Normal (applies to MEDGEN (St non-numeric results) [facility] Me dical, ) ID Date Data Source [id number] 06/15/2019 12:00:00 AM EST [facility] ([facility], ) Name Value Range Interpretation Code Description Data Zee rce(s) Supporting Document(s ) HCV Ab 0.2 s/co Normal (applies to MEDGEN (St ratio non-numeric [facility] results) [facility], ) ID Date Data Source [id number] 06/15/2019 12:00:00 AM EST [facility] ([facility], ) Name Value Range Interpretation Code Description Data Supporting Source(s) Document(s ) RA Latex 13.8 IU/mL Normal (applies to MEDGEN (St Turbid. non-numeric [facility] results) Medical, PC) ID Date Data Source [id number] 06/15/2019 12:00:00 AM EST [facility] ([facility], ) Name Value Range Interpretation Description Data Sup porting Code Source(s) Document(s ) Hep B Reactive Normal (applies to MEDGEN (St Surface Ab, non-numeric [facility] Qual results) Medical, PC) ID Date Data Source [id number] 06/15/2019 12:00:00 AM EST [facility] ([facility], ) Name Value Range Interpretation Description Data [...] for results) Medical, unspecified ) duration Protein 6.6 g/dL Normal (applies MEDGEN (St [Mass/volume] in to non-numeric [facility] Serum or Plasma results) Medical, ) Globulin, Total 2.4 g/dL Normal (applies MEDGEN ( St to non-numeric [facility] results) Medical, ) Microalbumin 4.2 g/dL Normal (applies MEDGEN (St [Mass/time] in to non-numeric [facility] Urine collected for results) Medical, unspecified ) duration Bilirubin.total 0.9 Normal (applies MEDGEN ( St [Mass/volume] in mg/dL to non-numeric [facility] Serum or Plasma results) Medical, ) A/G Ratio 1.8 Normal (applies MEDGEN (St to non-numeric [facility] results) Medical, ) Alkaline 50 IU/L Normal (applies MEDGEN (St phosphatase to non-numeric [facility] [Enzymatic results) Medical, activity/volume] in PC) Serum, Plasma or Blood Alanine 49 IU/L Above high MEDGEN (St aminotransferase normal [facility] [Enzymatic Medical, activity/volume] in PC) Serum or Plasma Aspartate 34 IU/L Normal (applies MEDGEN (St aminotransferase to non-numeric [facility] [Enzymatic results) Medical, activity/volume] in PC) Serum or Plasma ID Date Data Source [id number] 06/15/2019 12:00:00 AM EST MEDGEN (St Sally [...] in g/dL to non-numeric [facility] Blood results) [facility], ) Hematocrit 37.9 % Normal (applies MEDGEN (St [Volume to non-numeric [facility] Fraction] of results) [facility], ) Blood by Automated count MCH 28.4 pg Normal (applies MEDGEN (St to non-numeric [facility] results) [facility], ) MCV 81 fL Normal (applies MEDGEN (St to non-numeric [facility] results) [facility], ) MCHC 35.1 Normal (applies MEDGEN (St g/dL to non-numeric [facility] results) [facility], ) Platelets 184 Normal (applies MEDGEN (St [#/area] in x10E3/uL to non-numeric [facility] Blood by results) [facility], ) Microscopy high power field RDW 13.9 % Normal (applies MEDGEN (St to non-numeric [facility] results) [facility], ) Neutrophils [#] 51 % Normal (applies MEDGEN ( St in Body fluid by to non-numeric [facility] Manual count results) [facility], ) Lymphs 40 % Normal (applies MEDGEN (St to non-numeric [facility] results) [facility], ) Monocytes 7 % Normal (applies MEDGEN (St [#/volume] in to non-numeric [facility] Cord blood results) [facility], ) Eos 2 % Normal (applies MEDGEN (St to non-numeric [facility] results) [facility], ) Basos 0 % Normal (applies MEDGEN (St to non-numeric [facility] results) [facility], ) Neutrophils 3.0 Normal (applies MEDGEN (St (Absolute) x10E3/uL to non-numeric [facility] results) [facility], ) Monocytes(Absolu 0.4 Normal (applies MEDGEN (St te) x10E3/uL to non-numeric [facility] results) [facility], ) Lymphs 2.4 Normal (applies MEDGEN (St (Absolute) x10E3/uL to non-numeric [facility] results) [facility], ) Eos (Absolute) 0.1 Normal (applies MEDGEN (S t x10E3/uL to non-numeric [facility] results) [facility], ) Baso (Absolute) 0.0 Normal (applies MEDGEN ( St x10E3/uL to non-numeric [facility] results) [facility], ) Immature 0 % Normal (applies MEDGEN (St Granulocytes to non-numeric [facility] results) [facility], ) Immature Grans 0.0 Normal (applies MEDGEN (S t (Abs) x10E3/uL to non-numeric [facility] results) [facility], ) ID Date Data Source [id number] 06/15/2019 12:00:00 AM EST [facility] ([facility], ) Name Value Range Interpretation Description Data Sup porting Code Source(s) Document(s ) Hepatitis B Negative Normal (applies MEDGEN (St virus core Ab to non-numeric [facility] [Presence] in results) [facility], ) Serum or Plasma by Immunoassay ID Date Data Source [id number] 06/15/2019 12:00:00 AM EST [facility] ([facility], ) Name Value Range Interpretation Code Description Data Supporting Source(s) Document(s ) HBsAg Negative Normal (applies to MEDGEN (St Screen non-numeric [facility] results) [facility], ) ID Date Data Source [id number] 06/15/2019 12:00:00 AM EST [facility] ([facility], ) Name Value Range Interpretation Description Data Sup porting Code Source(s) Document(s ) Aldolase 7.3 U/L Normal (applies to MEDGEN (St [Enzymatic non-numeric [facility] activity/mass results) [facility], ) ] in Red Blood Cells ID Date Data Source [id number] 06/15/2019 12:00:00 AM EST [facility] ([facility], ) Name Value Range Interpretation Description Data Sup porting Code Source(s) Document(s ) Creatine 201 U/L Normal (applies to MEDGEN (St Kinase,Total non-numeric [facility] results) [facility], ) ID Date Data Source [id number] 06/15/2019 12:00:00 AM EST [facility] ([facility], ) Name Value Range Interpretation Code Description Data Supporting Source(s) Document(s ) CINDY Direct Negative Normal (applies to MEDGEN (St non-numeric [facility] results) [facility], ) ID Date Data Source [id number] 06/15/2019 12:00:00 AM EST [facility] ([facility], ) Name Value Range Interpretation Code Description Data Zee rce(s) Supporting Document(s ) Uric Acid 6.2 mg/dL Normal (applies to MEDGEN (St non-numeric [facility] results) Medical, ) ID Date Data Source [id number] 06/15/2019 12:00:00 AM EST [facility] ([facility], ) Name Value Range Interpretation Code Description Data Zee rce(s) Supporting Document(s ) Comment: Normal (applies to MEDGEN (St non-numeric results) [facility] Me dical, ) ID Date Data Source [id number] 06/15/2019 12:00:00 AM EST [facility] ([facility], ) Name Value Range Interpretation Code Description Data Zee rce(s) Supporting Document(s ) HCV Ab 0.2 s/co Normal (applies to MEDGEN (St ratio non-numeric [facility] results) Medical, ) ID Date Data Source [id number] 06/15/2019 12:00:00 AM EST [facility] ([facility], ) Name Value Range Interpretation Code Description Data Supporting Source(s) Document(s ) RA Latex 13.8 IU/mL Normal (applies to MEDGEN (St Turbid. non-numeric [facility] results) Medical, ) ID Date Data Source [id number] 06/15/2019 12:00:00 AM EST [facility] ([facility], ) Name Value Range Interpretation Description Data Sup porting Code Source(s) Document(s ) Hep B Reactive Normal (applies to MEDGEN (St Surface Ab, non-numeric [facility] Qual results) Medical, PC) ID Date Data Source [id number] 06/15/2019 12:00:00 AM EST [facility] ([facility], ) Name Value Range Interpretation Description Data Sup porting Code Source(s) Document(s ) Urea nitrogen 14 mg/dL Normal (applies [facility] (St [Mass/volume] in to non-numeric [facility] Serum or Plasma results) Medical, PC) Glucose 99 mg/dL Normal (applies [facility] (St [Mass/volume] in to non-numeric [facility] Urine collected for results) Medical, unspecified PC) duration eGFR If NonAfricn 84 Normal (applies [...] Serum or Plasma ID Date Data Source [id number] 06/15/2019 12:00:00 AM EST [facility] ([facility] [...] results) Medical, ) ID Date Data Source [id number] 06/15/2019 12:00:00 AM EST [facility] ([facility], ) Name Value Range Interpretation Description Data Sup porting Code Source(s) Document(s ) Hepatitis B Negative Normal (applies [facility] (St virus core Ab to non-numeric [facility] [Presence] in results) Medical, ) Serum or Plasma by Immunoassay ID Date Data Source [id number] 06/15/2019 12:00:00 AM EST [facility] ([facility], ) Name Value Range Interpretation Code Description Data Supporting Source(s) Document(s ) HBsAg Negative Normal (applies to [facility] (St Screen non-numeric [facility] results) Medical, ) ID Date Data Source [id number] 06/15/2019 12:00:00 AM EST [facility] ([facility], ) Name Value Range Interpretation Description Data Sup porting Code Source(s) Document(s ) Aldolase 7.3 U/L Normal (applies to [facility] (St [Enzymatic non-numeric [facility] activity/mass results) Medical, ) ] in Red Blood Cells ID Date Data Source [id number] 06/15/2019 12:00:00 AM EST [facility] ([facility], ) Name Value Range Interpretation Description Data Sup porting Code Source(s) Document(s ) Creatine 201 U/L Normal (applies to [facility] (St Kinase,Total non-numeric [facility] results) Medical, ) ID Date Data Source [id number] 06/15/2019 12:00:00 AM EST [facility] ([facility], ) Name Value Range Interpretation Code Description Data Supporting Source(s) Document(s ) CINDY Direct Negative Normal (applies to [facility] (St non-numeric [facility] results) [facility], ) ID Date Data Source [id number] 06/15/2019 12:00:00 AM EST [facility] ([facility], ) Name Value Range Interpretation Code Description Data Zee rce(s) Supporting Document(s ) Uric Acid 6.2 mg/dL Normal (applies to [facility] (St non-numeric [facility] results) [facility], ) ID Date Data Source [id number] 06/15/2019 12:00:00 AM EST [facility] ([facility], ) Name Value Range Interpretation Code Description Data Zee rce(s) Supporting Document(s ) ID Date Data Source [id number] 06/15/2019 12:00:00 AM EST [facility] ([facility], ) Name Value Range Interpretation Code Description Data Zee rce(s) Supporting Document(s ) HCV Ab 0.2 s/co Normal (applies to [facility] (St ratio non-numeric [facility] results) [facility], ) ID Date Data Source [id number] 06/15/2019 12:00:00 AM EST [facility] ([facility], ) Name Value Range Interpretation Code Description Data Supporting Source(s) Document(s ) RA Latex 13.8 IU/mL Normal (applies to [facility] (St Turbid. non-numeric [facility] results) Medical, ) ID Date Data Source [id number] 06/15/2019 12:00:00 AM EST [facility] ([facility], ) Name Value Range Interpretation Description Data Sup porting Code Source(s) Document(s ) Hep B Reactive Normal (applies to [facility] (St Surface Ab, non-numeric [facility] Qual results) Medical, ) ID Date Data Source [id number] 06/15/2019 12:00:00 AM EST [facility] ([facility]) Name Value Range Interpretation Description [...] non-numeric [facility] results) Medical, ) A/G Ratio 1.8 Normal (applies [facility] (St to non-numeric [facility] results) [facility], ) Aspartate 34 IU/L Normal (applies [facility] [...] Serum or Plasma ID Date Data Source [id number] 06/15/2019 12:00:00 AM EST [facility] ([facility], ) Name Value Range Interpretation Description Data Sup porting Code Source(s) Document(s ) Leukocytes 6.0 Normal (applies [facility] (St [#/volume] in x10E3/uL to non-numeric [facility] Blood by results) Medical, ) Automated count Erythrocytes 4.69 Normal (applies [facility] (St [#/volume] in x10E6/uL to non-numeric [facility] Blood by results) [facility], ) Automated count Hematocrit 37.9 % Normal (applies [facility] (St [Volume to non-numeric [facility] Fraction] of results) [facility], ) Blood by Automated count Hemoglobin 13.3 Normal (applies [facility] (St [Mass/volume] in g/dL to non-numeric [facility] Blood results) Medical, ) MCH 28.4 pg Normal (applies [facility] (St to non-numeric [facility] results) Medical, ) MCV 81 fL Normal (applies [facility] (St to non-numeric [facility] results) [facility], ) MCHC 35.1 Normal (applies [facility] (St g/dL to non-numeric [facility] results) [facility], ) RDW 13.9 % Normal (applies [facility] (St to non-numeric [facility] results) [facility], ) Platelets 184 Normal (applies [facility] (St [#/area] in x10E3/uL to non-numeric [facility] Blood by results) [facility], ) Microscopy high power field Neutrophils [#] 51 % Normal (applies [facility] ( St in Body fluid by to non-numeric [facility] Manual count results) [facility], ) Lymphs 40 % Normal (applies [facility] (St to non-numeric [facility] results) [facility], ) Monocytes 7 % Normal (applies [facility] (St [#/volume] in to non-numeric [facility] Cord blood results) [facility], ) Eos 2 % Normal (applies [facility] (St to non-numeric [facility] results) [facility], ) Basos 0 % Normal (applies [facility] (St to non-numeric [facility] results) [facility], ) Neutrophils 3.0 Normal (applies [facility] (St (Absolute) x10E3/uL to non-numeric [facility] results) [facility], ) Eos (Absolute) 0.1 Normal (applies [facility] (S t x10E3/uL to non-numeric [facility] results) [facility], ) Lymphs 2.4 Normal (applies [facility] (St (Absolute) x10E3/uL to non-numeric [facility] results) [facility], ) Monocytes(Absolu 0.4 Normal (applies [facility] (St te) x10E3/uL to non-numeric [facility] results) [facility], ) Immature 0 % Normal (applies [facility] (St Granulocytes to non-numeric [facility] results) [facility], ) Baso (Absolute) 0.0 Normal (applies [facility] ( St x10E3/uL to non-numeric [facility] results) [facility], ) Immature Grans 0.0 Normal (applies [facility] (S t (Abs) x10E3/uL to non-numeric [facility] results) [facility], ) ID Date Data Source [id number] 05/18/2019 12:00:00 AM EST [facility] ([facility], ) Name Value Range Interpretation Code Description Data Zee rce(s) Supporting Document(s ) ID Date Data Source [id number] 05/18/2019 12:00:00 AM EST [facility] ([facility], ) Name Value Range Interpretation Description Data Sup porting Code Source(s) Document(s ) Creatine 1049 U/L Above upper panic MED[facility] (St Kinase,Total limits [facility], ) ID Date Data Source [id number] 05/18/2019 12:00:00 AM EST [facility] ([facility]) Name Value Range Interpretation Description Data Sup porting Code Source(s) Document(s ) Sedimentation 6 mm/hr Normal (applies [facility] (St Rate-Westergren to non-numeric [facility] results) Medical, ) ID Date Data Source [id number] 05/18/2019 12:00:00 AM EST [facility] ([facility]) Name Value Range Interpretation Code Description Data Zee rce(s) Supporting Document(s ) JENNIE Normal (applies to [facility] (St Interpreta non-numeric results) [facility] M edical, tion:U PC) ID Date Data Source [id number] 05/18/2019 12:00:00 AM EST [facility] ([facility]) Name Value Range Interpretation Description Data Sup porting Code Source(s) Document(s ) Prostate 0.4 ng/mL Normal (applies to [facility] (St Specific Ag, non-numeric [facility] Serum results) Medical, ) ID Date Data Source [id number] 05/18/2019 12:00:00 AM EST [facility] ([facility]) Name Value Range Interpretation Code Description Data Zee rce(s) Supporting Document(s ) TSH 2.160 Normal (applies to [facility] (St uIU/mL non-numeric results) [facility] Me dicne, ) ID Date Data Source [id number] 05/18/2019 12:00:00 AM EST [facility] ([facility] [...] results) Medical, ) ID Date Data Source [id number] 05/18/2019 12:00:00 AM EST [facility] ([facility] [...] results) Medical, ) ID Date Data Source [id number] 05/18/2019 12:00:00 AM EST [facility] ([facility], ) Name Value Range Interpretation Description Data [...] results) Medical, ) ID Date Data Source [id number] 05/18/2019 12:00:00 AM EST [facility] ([facility], ) Name Value Range Interpretation Description Data Sup porting Code Source(s) Document(s ) Microalbumin 4.1 g/dL Normal (applies [facility] (St [Mass/time] in to non-numeric [facility] Urine collected results) Medical, for unspecified PC) duration Kyeaz-8-Efikaenk 0.2 g/dL Normal (applies [facility] (St to non-numeric [facility] results) Medical, ) Oirqg-1-Clmdvprw 0.6 g/dL Normal (applies [facility] (St to non-numeric [facility] results) Medical, ) Gamma globulin 1.0 g/dL Normal (applies [facility] (S t [Mass/volume] by to non-numeric [facility] Electrophoresis results) Medical, in Urine ) collected for unspecified duration Beta globulin 1.0 g/dL Normal (applies [facility] (St [Mass/volume] in to non-numeric [facility] Urine by results) Medical, Electrophoresis PC) Globulin, Total 2.8 g/dL Normal (applies [facility] ( St to non-numeric [facility] results) Medical, ) M-Dewey Not Normal (applies [facility] (St Observed to non-numeric [facility] results) Medical, ) A/G Ratio 1.5 Normal (applies [facility] (St to non-numeric [facility] results) Medical, ) PDF . Normal (applies [facility] (St to non-numeric [facility] results) Medical, ) Please note: Normal (applies [facility] (St to non-numeric [facility] results) Medical, ) ID Date Data Source [id number] 05/18/2019 12:00:00 AM EST [facility] ([facility], ) Name Value Range Interpretation Description Data Sup porting Code Source(s) Document(s ) Specific gravity 1.022 Normal (applies [facility] (St of Pericardial to non-numeric [facility] fluid by results) Medical, Refractometry ) Urine-Color Yellow Normal (applies [facility] (St to non-numeric [facility] results) Medical, ) pH of Lower 5.0 Normal (applies [facility] (St respiratory to non-numeric [facility] specimen results) Medical, ) WBC Esterase Negative Normal (applies [facility] (St to non-numeric [facility] results) Medical, ) Appearance of Clear Normal (applies [facility] (St [...] results) Medical, PC) ID Date Data Source [id number] 05/18/2019 12:00:00 AM EST [facility] ([facility] [...] for results) Medical, unspecified PC) duration Protein 6.9 g/dL Normal (applies [facility] (St [Mass/volume] in to non-numeric [facility] Serum or Plasma results) Medical, ) Microalbumin [...] Serum or Plasma ID Date Data Source [id number] 05/18/2019 12:00:00 AM EST [facility] ([facility], ) Name Value Range Interpretation Description Data Sup porting Code Source(s) Document(s ) Erythrocytes 4.65 Normal (applies [facility] (St [#/volume] in x10E6/uL to non-numeric [facility] Blood by results) [facility], ) Automated count Leukocytes 5.1 Normal (applies [facility] (St [#/volume] in x10E3/uL to non-numeric [facility] Blood by results) [facility], ) Automated count Hemoglobin 13.8 Normal (applies [facility] (St [Mass/volume] in g/dL to non-numeric [facility] Blood results) [facility], ) MCV 85 fL Normal (applies [facility] (St to non-numeric [facility] results) [facility], ) Hematocrit 39.4 % Normal (applies [facility] (St [Volume to non-numeric [facility] Fraction] of results) [facility], ) Blood by Automated count MCH 29.7 pg Normal (applies [facility] (St to non-numeric [facility] results) [facility], ) MCHC 35.0 Normal (applies [facility] (St g/dL to non-numeric [facility] results) [facility], ) RDW 13.8 % Normal (applies [facility] (St to non-numeric [facility] results) [facility], ) Platelets 189 Normal (applies [facility] (St [#/area] in x10E3/uL to non-numeric [facility] Blood by results) [facility], ) Microscopy high power field Neutrophils [#] 56 % Normal (applies [facility] ( St in Body fluid by to non-numeric [facility] Manual count results) [facility], ) Monocytes 9 % Normal (applies [facility] (St [#/volume] in to non-numeric [facility] Cord blood results) [facility], ) Lymphs 31 % Normal (applies [facility] (St to non-numeric [facility] results) [facility], ) Eos 4 % Normal (applies [facility] (St to non-numeric [facility] results) [facility], ) Basos 0 % Normal (applies [facility] (St to non-numeric [facility] results) [facility], ) Neutrophils 2.9 Normal (applies [facility] (St (Absolute) x10E3/uL to non-numeric [facility] results) [facility], ) Monocytes(Absolu 0.4 Normal (applies [facility] (St te) x10E3/uL to non-numeric [facility] results) [facility], ) Lymphs 1.6 Normal (applies [facility] (St (Absolute) x10E3/uL to non-numeric [facility] results) [facility], ) Baso (Absolute) 0.0 Normal (applies [facility] ( St x10E3/uL to non-numeric [facility] results) Medical, PC) Eos (Absolute) 0.2 Normal (applies [facility] (S t x10E3/uL to non-numeric [facility] results) Medical, PC) Immature Grans 0.0 Normal (applies [facility] (S t (Abs) x10E3/uL to non-numeric [facility] results) Medical, ) Immature 0 % Normal (applies [facility] (St Granulocytes to non-numeric [facility] results) Medical, PC) ID Date Data Source [id number] 05/18/2019 12:00:00 AM EST [facility] ([facility]) Name Value Range Interpretation Code Description Data Zee rce(s) Supporting Document(s ) ID Date Data Source [id number] 05/18/2019 12:00:00 AM EST [facility] ([facility]) Name Value Range Interpretation Description Data Sup porting Code Source(s) Document(s ) Creatine 1049 U/L Above upper panic MED[facility] (St Kinase,Total limits [facility] Medical, ) ID Date Data Source [id number] 05/18/2019 12:00:00 AM EST [facility] ([facility]) Name Value Range Interpretation Description Data Sup porting Code Source(s) Document(s ) Sedimentation 6 mm/hr Normal (applies [facility] (St Rate-Westergren to non-numeric [facility] results) Medical, ) ID Date Data Source [id number] 05/18/2019 12:00:00 AM EST [facility] ([facility]) Name Value Range Interpretation Code Description Data Zee rce(s) Supporting Document(s ) JENNIE Normal (applies to [facility] (St Interpreta non-numeric results) [facility] M edical, tion:U PC) ID Date Data Source [id number] 05/18/2019 12:00:00 AM EST [facility] ([facility]) Name Value Range Interpretation Description Data Sup porting Code Source(s) Document(s ) Prostate 0.4 ng/mL Normal (applies to [facility] (St Specific Ag, non-numeric [facility] Serum results) Medical, ) ID Date Data Source [id number] 05/18/2019 12:00:00 AM EST [facility] ([facility], ) Name Value Range Interpretation Code Description Data Zee rce(s) Supporting Document(s ) TSH 2.160 Normal (applies to [facility] (St uIU/mL non-numeric results) [facility]) ID Date Data Source [id number] 05/18/2019 12:00:00 AM EST [facility] ([facility], ) Name Value Range Interpretation Description Data Sup porting Code Source(s) Document(s ) Immunofixation Normal (applies [facility] (S t Result, Serum to non-numeric [facility] results) [facility], ) Immunoglobulin G, 1117 Normal (applies [facility] (St Qn, Serum mg/dL to non-numeric [facility] results) [facility], ) Immunoglobulin M, 27 mg/dL Normal (applies [facility] (St Qn, Serum to non-numeric [facility] results) [facility], ) Immunoglobulin A, 180 Normal (applies [facility] (St Qn, Serum mg/dL to non-numeric [facility] results) [facility], ) ID Date Data Source [id number] 05/18/2019 12:00:00 AM EST [facility] ([facility], ) Name Value Range Interpretation Description Data Sup porting Code Source(s) Document(s ) Cholesterol 162 Normal (applies [facility] (St [Mass/volume] in mg/dL to non-numeric [facility] Serum or Plasma results) [facility], ) Triglyceride 73 mg/dL Normal (applies [facility] (St [Mass/volume] in to non-numeric [facility] Serum or Plasma results) [facility], ) VLDL Cholesterol 15 mg/dL Normal (applies [facility] (St Angella to non-numeric [facility] results) [facility], ) HDL Cholesterol 72 mg/dL Normal (applies [facility] ( St to non-numeric [facility] results) [facility], ) LDL Cholesterol 75 mg/dL Normal (applies [facility] ( St Calc to non-numeric [facility] results) [facility], ) ID Date Data Source [id number] 05/18/2019 12:00:00 AM EST [facility] ([facility], ) Name Value Range Interpretation Description Data Sup porting Code Source(s) Document(s ) Protein,To 11.2 mg/dL Normal (applies to [facility] (S t chucky,Urine non-numeric [facility] results) Medical, PC) Albumin, U 100.0 % Normal (applies to [...] results) Medical, PC) ID Date Data Source [id number] 05/18/2019 12:00:00 AM EST [facility] ([facility], ) Name Value Range Interpretation Description Data Sup porting Code Source(s) Document(s ) Microalbumin 4.1 g/dL Normal (applies [facility] (St [Mass/time] in to non-numeric [facility] Urine collected results) Medical, for unspecified PC) duration Usvjf-0-Oeqlpvtl 0.6 g/dL Normal (applies [facility] (St to non-numeric [facility] results) Medical, PC) Vnfwa-4-Hfcpclmi 0.2 g/dL Normal (applies [facility] (St to [...] results) Medical, PC) ID Date Data Source [id number] 05/18/2019 12:00:00 AM EST [facility] ([facility] [...] results) Medical, PC) ID Date Data Source [id number] 05/18/2019 12:00:00 AM EST [facility] ([facility], ) Name Value Range Interpretation Description Data [...] [facility] ( St Ratio [facility], [facility]) Sodium 141 Normal (applies MEDGEN [...] [facility]GEN ( St to non-numeric [facility] results) [facility], ) A/G Ratio 2.3 Above high [facility] (St normal [facility], ) Bilirubin.total 1.7 Above high [facility] (St [Mass/volume] in mg/dL normal [facility] Serum or Plasma [facility], ) Aspartate 47 IU/L Above high MEDGEN [...] Serum or Plasma ID Date Data Source [id number] 05/18/2019 12:00:00 AM EST [facility] ([facility], ) Name Value Range Interpretation Description Data Sup porting Code Source(s) Document(s ) Leukocytes 5.1 Normal (applies [facility] (St [#/volume] in x10E3/uL to non-numeric [facility] Blood by results) [facility], ) Automated count Erythrocytes 4.65 Normal (applies [facility] (St [#/volume] in x10E6/uL to non-numeric [facility] Blood by results) [facility], ) Automated count Hematocrit 39.4 % Normal (applies [facility] (St [Volume to non-numeric [facility] Fraction] of results) [facility], ) Blood by Automated count Hemoglobin 13.8 Normal (applies [facility] (St [Mass/volume] in g/dL to non-numeric [facility] Blood results) [facility]) MCV 85 fL Normal (applies [facility] (St to non-numeric [facility] results) [facility]) MCH 29.7 pg Normal (applies MED[facility] (St to non-numeric [facility] results) [facility]) MCHC 35.0 Normal (applies [facility] (St g/dL to non-numeric [facility] results) [facility], ) RDW 13.8 % Normal (applies [facility] (St to non-numeric [facility] results) [facility], ) Platelets 189 Normal (applies [facility] (St [#/area] in x10E3/uL to non-numeric [facility] Blood by results) [facility], ) Microscopy high power field Neutrophils [#] 56 % Normal (applies [facility] ( St in Body fluid by to non-numeric [facility] Manual count results) [facility], ) Lymphs 31 % Normal (applies [facility] (St to non-numeric [facility] results) [facility], ) Monocytes 9 % Normal (applies [facility] (St [#/volume] in to non-numeric [facility] Cord blood results) [facility], ) Basos 0 % Normal (applies [facility] (St to non-numeric [facility] results) [facility], ) Eos 4 % Normal (applies [facility] (St to non-numeric [facility] results) [facility], ) Lymphs 1.6 Normal (applies MED[facility] (St (Absolute) x10E3/uL to non-numeric [facility] results) [facility], ) Neutrophils 2.9 Normal (applies MED[facility] (St (Absolute) x10E3/uL to non-numeric [facility] results) [facility], ) Eos (Absolute) 0.2 Normal (applies MED[facility] (S t x10E3/uL to non-numeric [facility] results) [facility], ) Monocytes(Absolu 0.4 Normal (applies MEDGEN (St te) x10E3/uL to non-numeric [facility] results) [facility], ) Baso (Absolute) 0.0 Normal (applies MEDGEN ( St x10E3/uL to non-numeric [facility] results) [facility], ) Immature 0 % Normal (applies [facility] (St Granulocytes to non-numeric [facility] results) [facility], ) Immature Grans 0.0 Normal (applies MEDGEN (S t (Abs) x10E3/uL to non-numeric [facility] results) [facility], ) ID Date Data Source [id number] 05/18/2019 12:00:00 AM EST [facility] ([facility], ) Name Value Range Interpretation Code Description Data Zee rce(s) Supporting Document(s ) ID Date Data Source [id number] 05/18/2019 12:00:00 AM EST [facility] ([facility], ) Name Value Range Interpretation Description Data Sup porting Code Source(s) Document(s ) Creatine 1049 U/L Above upper panic MED[facility] (St Kinase,Total limits [facility], ) ID Date Data Source [id number] 05/18/2019 12:00:00 AM EST [facility] ([facility]) Name Value Range Interpretation Description Data Sup porting Code Source(s) Document(s ) Sedimentation 6 mm/hr Normal (applies MED[facility] (St Rate-Westergren to non-numeric [facility] results) Medical, ) ID Date Data Source [id number] 05/18/2019 12:00:00 AM EST [facility] ([facility], ) Name Value Range Interpretation Code Description Data Zee rce(s) Supporting Document(s ) ID Date Data Source [id number] 05/18/2019 12:00:00 AM EST [facility] ([facility], ) Name Value Range Interpretation Description Data Sup porting Code Source(s) Document(s ) Prostate 0.4 ng/mL Normal (applies to MED[facility] (St Specific Ag, non-numeric [facility] Serum results) Medical, ) ID Date Data Source [id number] 05/18/2019 12:00:00 AM EST [facility] ([facility], ) Name Value Range Interpretation Code Description Data Zee rce(s) Supporting Document(s ) TSH 2.160 Normal (applies to MEDGEN (St uIU/mL non-numeric results) [facility], ) ID Date Data Source [id number] 05/18/2019 12:00:00 AM EST [facility] ([facility] [...] results) Medical, ) ID Date Data Source [id number] 05/18/2019 12:00:00 AM EST [facility] ([facility], ) Name Value Range Interpretation Description Data [...] results) Medical, ) ID Date Data Source [id number] 05/18/2019 12:00:00 AM EST [facility] ([facility], ) Name Value Range Interpretation Description Data Sup porting Code Source(s) Document(s ) Protein,T 11.2 mg/dL Normal (applies to [facility] (St otal,Urin non-numeric [facility]'s e results) Medical, ) Albumin, 100.0 % Normal (applies to [facility] (St U non-numeric [facility] results) Medical, ) Alpha-2-G 0.0 % Normal (applies to [facility] (St lobulin, non-numeric [facility] U results) [facility], ) Alpha-1-G 0.0 % Normal (applies to [facility] (St lobulin, non-numeric [facility] U results) Medical, ) Beta 0.0 % Normal (applies to [facility] (St Globulin, non-numeric [facility] U results) [facility], ) Gamma 0.0 % Normal (applies to [facility] (St Globulin, non-numeric [facility] U results) Medical, ) M-Dewey, Not Observed Normal (applies to [facility] ( St % non-numeric [facility] results) Medical, ) PDF . Normal (applies to [facility] (St non-numeric [facility] results) Medical, ) ID Date Data Source [id number] 05/18/2019 12:00:00 AM EST [facility] ([facility], ) Name Value Range Interpretation Description Data Sup porting Code Source(s) Document(s ) Microalbumin 4.1 g/dL Normal (applies [facility] (St [Mass/time] in to non-numeric [facility] Urine collected results) Medical, for unspecified PC) duration Skflr-3-Cicmrrxt 0.2 g/dL Normal (applies [facility] (St to non-numeric [facility]'s results) Medical, PC) Eakmy-9-Iqaqkkpn 0.6 g/dL Normal (applies MED[facility] (St to [...] results) Medical, PC) ID Date Data Source [id number] 05/18/2019 12:00:00 AM EST [facility] ([facility] [...] results) Medical, PC) ID Date Data Source [id number] 05/18/2019 12:00:00 AM EST [facility] ([facility], ) Name Value Range Interpretation Description Data [...] for results) Medical, unspecified PC) duration Protein 6.9 g/dL Normal (applies [facility] (St [Mass/volume] in to non-numeric [facility] Serum or Plasma results) Medical, ) Globulin, Total 2.1 g/dL Normal (applies [...] Serum or Plasma ID Date Data Source [id number] 05/18/2019 12:00:00 AM EST [facility] ([facility], ) Name Value Range Interpretation Description Data Sup porting Code Source(s) Document(s ) Leukocytes 5.1 Normal (applies [facility] (St [#/volume] in x10E3/uL to non-numeric [facility] Blood by results) Medical, ) Automated count Hemoglobin 13.8 Normal (applies [facility] (St [Mass/volume] in g/dL to non-numeric [facility] Blood results) Medical, ) Hematocrit 39.4 % Normal (applies [facility] (St [Volume to non-numeric [facility] Fraction] of results) Medical, ) Blood by Automated count Erythrocytes 4.65 Normal (applies [facility] (St [#/volume] in x10E6/uL to non-numeric [facility] Blood by results) Medical, ) Automated count MCH 29.7 pg Normal (applies [facility] (St to non-numeric [facility]'s results) [facility], ) MCV 85 fL Normal (applies [facility] (St to non-numeric [facility]'s results) [facility], ) MCHC 35.0 Normal (applies [facility] (St g/dL to non-numeric [facility]'s results) [facility], ) RDW 13.8 % Normal (applies [facility] (St to non-numeric [facility]'s results) [facility], ) Neutrophils [#] 56 % Normal (applies [facility] ( St in Body fluid by to non-numeric [facility] Manual count results) [facility], ) Platelets 189 Normal (applies [facility] (St [#/area] in x10E3/uL to non-numeric [facility] Blood by results) [facility], ) Microscopy high power field Eos 4 % Normal (applies [facility] (St to non-numeric [facility]'s results) [facility], ) Lymphs 31 % Normal (applies [facility] (St to non-numeric [facility]'s results) [facility], ) Monocytes 9 % Normal (applies [facility] (St [#/volume] in to non-numeric [facility] Cord blood results) [facility], ) Neutrophils 2.9 Normal (applies [facility] (St (Absolute) x10E3/uL to non-numeric [facility] results) [facility], ) Basos 0 % Normal (applies [facility] (St to non-numeric [facility]'s results) [facility], ) Monocytes(Absolu 0.4 Normal (applies MEDGEN (St te) x10E3/uL to non-numeric [facility] results) [facility], ) Lymphs 1.6 Normal (applies MED[facility] (St (Absolute) x10E3/uL to non-numeric [facility] results) [facility], ) Baso (Absolute) 0.0 Normal (applies MED[facility] ( St x10E3/uL to non-numeric [facility] results) [facility], ) Immature 0 % Normal (applies [facility] (St Granulocytes to non-numeric [facility] results) [facility], ) Eos (Absolute) 0.2 Normal (applies MED[facility] (S t x10E3/uL to non-numeric [facility] results) [facility], ) Immature Grans 0.0 Normal (applies [facility] (S t (Abs) x10E3/uL to non-numeric [facility] results) [facility]) Procedure Social History Code Duration Value Status Description Data Source(s ) Smoking 02/04/2020 former smoker completed former smoker [facility]/04/2020 Unknown if ever completed Unknown if ever MEDG EN ([facility] 12:00:00 AM EDT smoked smoked [facility]) Smoking 01/25/2020 former smoker completed former smoker MED[facility] ( [facility] 12:00:00 AM EDT [facility]) Smoking 01/25/2020 Unknown if ever completed Unknown if ever MEDG EN ([facility] 12:00:00 AM EDT smoked smoked [facility]) Smoking 12/27/2019 former smoker completed former smoker [facility] 12/27/2019 Unknown if ever completed Unknown if ever MEDG EN ([facility] 12:00:00 AM EDT smoked smoked [facility]) Vital Signs ID Date Data Source UNK Name Value Range Interpretation Code Description Data Source(s) Heart rate 76 /min 76 /min [facility] ([facility]) Respiratory rate 15 /min 15 /min [facility] ( [facility]) Body mass index 33.9 kg/m2 33.9 kg/m2 MED[facility] (S t (BMI) [Ratio] [facility]) Diastolic blood 90 mm[Hg] 90 mm[Hg] MEDGEN (S t pressure [facility]) Systolic blood 130 mm[Hg] 130 mm[Hg] MEDGEN ([facility]) Body weight 257 lb 257 lb MED[facility] ([facility]) Body height 73 in 73 in MED[facility] ([facility]) Heart rate 77 /min 77 /min [facility] ([facility]) Respiratory rate 14 /min 14 /min MED[facility] ( [facility]) Body temperature 98.9 F 98.9 F MED[facility] ( [facility]) Inhaled oxygen 98 % 98 % MED[facility] ([facility]) Body mass index 33.6 kg/m2 33.6 kg/m2 MED[facility] (S t (BMI) [Ratio] [facility]) Diastolic blood 82 mm[Hg] 82 mm[Hg] MEDGEN (S t pressure [facility]) Systolic blood 130 mm[Hg] 130 mm[Hg] MEDGEN ([facility]) Body weight 255 lb 255 lb MED[facility] ([facility]) Body height 73 in 73 in MED[facility] ([facility]) Heart rate 77 /min 77 /min [facility] ([facility]) Respiratory rate 14 /min 14 /min MED[facility] ( [facility]) Body temperature 98.9 F 98.9 F MEDGEN ( [facility]) Inhaled oxygen 98 % 98 % MED[facility] ([facility]) Body mass index 33.6 kg/m2 33.6 kg/m2 MEDGEN (S t (BMI) [Ratio] [facility], ) Diastolic blood 82 mm[Hg] 82 mm[Hg] MEDGEN (S t [facility]) Systolic blood 130 mm[Hg] 130 mm[Hg] MEDGEN ([facility]) Body weight 255 lb 255 lb MEDGEN ([facility]) Body height 73 in 73 in MED[facility] ([facility]) Heart rate 77 /min 77 /min MED[facility] ([facility]) Respiratory rate 14 /min 14 /min MEDGEN ( [facility]) Body temperature 98.9 F 98.9 F MEDGEN ( [facility]) Inhaled oxygen 98 % 98 % MED[facility] ([facility]) Body mass index 33.6 kg/m2 33.6 kg/m2 MEDGEN (S t (BMI) [Ratio] [facility], ) Diastolic blood 82 mm[Hg] 82 mm[Hg] MEDGEN (S t pressure [facility]) Systolic blood 130 mm[Hg] 130 mm[Hg] MEDGEN ([facility]) Body weight 255 lb 255 lb MEDGEN ([facility]) Body height 73 in 73 in MED[facility] ([facility]) Heart rate 86 /min 86 /min [facility] ([facility]) Respiratory rate 14 /min 14 /min MED[facility] ( [facility]) Body temperature 98.9 F 98.9 F MEDGEN ( [facility]) Inhaled oxygen 98 % 98 % MED[facility] ([facility]) Body mass index 33.6 kg/m2 33.6 kg/m2 MED[facility] (S t (BMI) [Ratio] [facility]) Diastolic blood 82 mm[Hg] 82 mm[Hg] MEDGEN (S t [facility]) Systolic blood 120 mm[Hg] 120 mm[Hg] MEDGEN ([facility]) Body weight 255 lb 255 lb MED[facility] ([facility]) Body height 73 in 73 in MED[facility] ([facility]) Heart rate 86 /min 86 /min [facility] ([facility]) Respiratory rate 14 /min 14 /min MED[facility] ( [facility]) Body temperature 98.9 F 98.9 F MEDGEN ( [facility]) Inhaled oxygen 98 % 98 % MED[facility] ([facility]) Body mass index 33.6 kg/m2 33.6 kg/m2 MEDGEN (S t (BMI) [Ratio] [facility]) Diastolic blood 82 mm[Hg] 82 mm[Hg] MEDGEN (S [facility]) Systolic blood 120 mm[Hg] 120 mm[Hg] MEDGEN ([facility]) Body weight 255 lb 255 lb MED[facility] ([facility]) Body height 73 in 73 in MED[facility] ([facility]) Heart rate 86 /min 86 /min MED[facility] ([facility]) Respiratory rate 14 /min 14 /min MED[facility] ( [facility]) Body temperature 98.9 F 98.9 F MED[facility] ( [facility]) Inhaled oxygen 98 % 98 % MED[facility] ([facility]) Body mass index 33.6 kg/m2 33.6 kg/m2 MEDGEN (S t (BMI) [Ratio] [facility]) Diastolic blood 82 mm[Hg] 82 mm[Hg] MEDGEN (S t [facility]) Systolic blood 120 mm[Hg] 120 mm[Hg] MEDGEN ([facility]) Body weight 255 lb 255 lb MEDGEN ([facility]) Body height 73 in 73 in MEDGEN ([facility]) Heart rate 74 /min 74 /min MED[facility] ([facility]) Respiratory rate 14 /min 14 /min MEDGEN ( [facility]) Inhaled oxygen 98 % 98 % MEDGEN ([facility], ) Body mass index 33.6 kg/m2 33.6 kg/m2 MEDGEN (S t (BMI) [Ratio] [facility], ) Diastolic blood 82 mm[Hg] 82 mm[Hg] MEDGEN (S [facility]) Systolic blood 120 mm[Hg] 120 mm[Hg] MEDGEN ([facility]) Body weight 255 lb 255 lb MEDGEN ([facility]) Body height 73 in 73 in MEDGEN ([facility]) Heart rate 74 /min 74 /min MED[facility] ([facility]) Respiratory rate 14 /min 14 /min MED[facility] ( [facility]) Inhaled oxygen 98 % 98 % MEDGEN ([facility]) Body mass index 33.6 kg/m2 33.6 kg/m2 MEDGEN (S t (BMI) [Ratio] [facility], ) Diastolic blood 82 mm[Hg] 82 mm[Hg] MEDGEN (S t pressure [facility]) Systolic blood 120 mm[Hg] 120 mm[Hg] MEDGEN ([facility]) Body weight 255 lb 255 lb MEDGEN ([facility]) Body height 73 in 73 in MED[facility] ([facility]) Heart rate 74 /min 74 /min MED[facility] ([facility]) Respiratory rate 14 /min 14 /min MEDGEN ( [facility]) Inhaled oxygen 98 % 98 % MED[facility] ([facility]) Body mass index 33.6 kg/m2 33.6 kg/m2 MEDGEN (S t (BMI) [Ratio] [facility], ) Diastolic blood 82 mm[Hg] 82 mm[Hg] [facility] (S t pressure [facility] , ) Systolic blood 120 mm[Hg] 120 mm[Hg] [facility] ([facility] , ) Body weight 255 lb 255 lb [facility] ([facility] , ) Body height 73 in 73 in [facility] ([facility] , )
== END 2020-03-08 11:26 | disposition home or self-care (01) ==
LOC: JERFT 10:38 → JER 10:38 → JERFT 11:26
DX: Z48.00 Encounter for change or removal of nonsurgical wound dressing (principal)
CPT/HCPCS: 99281-25

== ENCOUNTER 2020-05-18 10:06 | Day surgery (SDC) | payer OTHER ==
[2020-05-16 13:31] VITALS: BMI 36.9
[2020-05-18] MEDS ORDERED: MIDAZOLAM HCL 2 MG/2 ML SINGLE DOSE VIAL ONE ×3 (14:09→14:46)
[2020-05-18] MEDS ORDERED: BUPIVACAINE HCL/PF 2.5 MG/ML - 30 ML VIAL IJ ONE ×2 (14:10→15:18)
[2020-05-18] MEDS ORDERED: ceFAZolin SODIUM 1 GM VIAL ONE ×2 (14:45)
[2020-05-18] MEDS ORDERED: ONDANSETRON 4 MG/2 ML VIAL IVPUSH PRN (15:38)
[2020-05-18] MEDS ORDERED: oxyCODONE HCL 5 MG TABLET PO PRN (15:38)
[2020-05-18] MEDS ORDERED: LACTATED RINGERS SOLUTION 1,000 ML IV SCH (15:45)
[2020-05-18] MEDS ORDERED: diphenhydrAMINE HCL 25 MG CAPSULE (FP) PO ONE ×2 (17:52→18:12)
[2020-05-18 18:41] VITALS: TEMP 98.4
[2020-05-18 18:50] VITALS: BP 129/63; PULSE 59
== END 2020-05-18 18:45 | disposition home or self-care (01) ==
LOC: FASU 10:06
PROVIDERS: ATTEND Orthopaedic Surgery Sports Medicine
PROC: 0SCD4ZZ Extirpation of Matter from Left Knee Joint, Percutaneous Endoscopic Approach (ICD-10-PCS; 2020-05-18)
PROC: 0SBD4ZZ Excision of Left Knee Joint, Percutaneous Endoscopic Approach (ICD-10-PCS; 2020-05-18)
PROC: 0SBD4ZZ Excision of Left Knee Joint, Percutaneous Endoscopic Approach (ICD-10-PCS; principal; 2020-05-18 14:48)
DX: S83.282A Other tear of lateral meniscus, current injury, left knee, initial encounter (principal); M65.9 Synovitis and tenosynovitis, unspecified; M94.262 Chondromalacia, left knee; X58.XXXA Exposure to other specified factors, initial encounter; Y93.9 Activity, unspecified; Y92.9 Unspecified place or not applicable
CPT/HCPCS: 29881; G0289; 88304-TC; 94760

== ENCOUNTER 2020-06-25 09:14 | Emergency (ER) | payer OTHER ==
[2020-06-25 09:19] VITALS: BP 126/84; PULSE 73; TEMP 97.7; BMI 35.6
[2020-06-25] MEDS ORDERED: ACETAMINOPHEN 325 MG TABLET (FP) ONE (09:40)
== END 2020-06-25 09:54 | disposition home or self-care (01) ==
LOC: JERFT 09:14 → JER 09:14 → JERFT 09:54
DX: S39.012A Strain of muscle, fascia and tendon of lower back, initial encounter (principal); M25.562 Pain in left knee; V89.2XXA Person injured in unspecified motor-vehicle accident, traffic, initial encounter
CPT/HCPCS: 99284-25

== ENCOUNTER 2020-12-06 19:54 | Emergency (ER) | payer OTHER ==
[2020-12-06] MEDS ORDERED: KETOROLAC TROMETHAMINE 60 MG/2 ML VIAL IM ONE (20:32)
[2020-12-06 20:34] VITALS: BP 125/80; PULSE 70; TEMP 98; BMI 78.5
[2020-12-06] MEDS ORDERED: KETOROLAC TROMETHAMINE 60 MG/2 ML VIAL ONE (20:34)
== END 2020-12-06 20:47 | disposition home or self-care (01) ==
LOC: FER 19:54
PROC: 3E0233Z Introduction of Anti-inflammatory into Muscle, Percutaneous Approach (ICD-10-PCS; principal; 2020-12-06)
DX: M25.511 Pain in right shoulder (principal)
CPT/HCPCS: 99283-25

== ENCOUNTER 2022-06-03 07:56 | Emergency (ER) | payer OTHER ==
[2022-06-03 08:02] VITALS: RESP 18; BMI 37.5
[2022-06-03] MEDS ORDERED: diazePAM 5 MG TABLET PO ONE (10:11)
[2022-06-03] MEDS ORDERED: DEXAMETHASONE SOD PHOSPHATE 10 MG/1 ML VIAL IM ONE (10:11)
[2022-06-03] MEDS ORDERED: DEXAMETHASONE SOD PHOSPHATE 10 MG/1 ML VIAL ONE (11:25)
[2022-06-03] MEDS ORDERED: diazePAM 5 MG TABLET ONE (11:25)
[2022-06-03 12:01] VITALS: BP 138/82; PULSE 69; TEMP 97.4
[2022-06-03 12:45] LABS: PH,URINE 5.5 (5.0-8.0); URINE APPEARANCE CLEAR; URINE BILIRUBIN NEGATIVE (NEGATIVE); URINE COLOR YELLOW; URINE GLUCOSE (UA) NEGATIVE (NEGATIVE); URINE KETONE NEGATIVE (NEGATIVE); URINE LEUK ESTERASE NEGATIVE (NEGATIVE); URINE NITRITE NEGATIVE (NEGATIVE); URINE PROTEIN NEGATIVE (NEGATIVE); URINE UROBILINOGEN 0.2 mg/dL (0.2-1.0)
== END 2022-06-03 13:40 | disposition home or self-care (01) ==
LOC: JER 07:56
PROC: 3E023GC Introduction of Other Therapeutic Substance into Muscle, Percutaneous Approach (ICD-10-PCS; principal; 2022-06-03)
DX: J40 Bronchitis, not specified as acute or chronic (principal); M62.830 Muscle spasm of back
CPT/HCPCS: 71046-TC-FY; 81003; 99284-25; J1100

== ENCOUNTER 2022-07-18 14:06 | Emergency (ER) | payer OTHER ==
[2022-07-18 14:31] VITALS: BP 135/91; PULSE 58; RESP 20; TEMP 97.7; BMI 35.6
[2022-07-18 16:17] LABS: THROAT:GRP A STREP NOT DETECTED (NOTDETECTED)
== END 2022-07-18 17:20 | disposition home or self-care (01) ==
LOC: JERFT 14:06 → JER 14:06
DX: J01.00 Acute maxillary sinusitis, unspecified (principal)
CPT/HCPCS: 0241U-QW; 71046-TC-FY; 87651; 99284-25

== ENCOUNTER 2022-11-11 00:27 | Observation (INO) | payer OTHER ==
[2022-11-11 00:34] VITALS: BMI 37.5
[2022-11-11] MEDS ORDERED: KETOROLAC TROMETHAMINE 30 MG/1 ML VIAL IM ONE (01:12)
[2022-11-11] MEDS ORDERED: ACETAMINOPHEN 500 MG TABLET (FP) PO ONE (01:12)
[2022-11-11] MEDS ORDERED: KETOROLAC TROMETHAMINE 30 MG/1 ML VIAL ONE (01:26)
[2022-11-11] MEDS ORDERED: ACETAMINOPHEN 500 MG TABLET (FP) ONE (01:27)
[2022-11-11 01:46] LABS: BASO % 0.6 % (0-2.0); EOS % 1.9 % (0-4.5); HEMATOCRIT 41.3 % (35.4-49); LYMPH % 18.4 % (8-40); MCH 28.1 pg (25.7-33.7); MCHC 33.9 g/dl (32.0-35.9); MEAN CELL VOLUME 82.8 fl (80-96); MEAN PLT VOLUME 8.3 fl (7.5-11.1); MONO % 6.8 % (3.8-10.2); NEUT % 72.3 % (42.8-82.8); PLATELET COUNT 199 10^3/uL (134-434); RBC 4.99 M/mm3 (4.00-5.60); RDW 14.2 % (11.9-15.9); WHITE BLOOD COUNT 9.7 K/mm3 (4.0-10.0)
[2022-11-11 01:54] LABS: INR 0.97 (0.83-1.09); PROTHROMBIN TIME (PATIENT) 11.3 SEC (9.7-13.0)
[2022-11-11 02:05] LABS: POTASSIUM 4.2 mmol/L (3.5-5.1)
[2022-11-11 02:10] LABS: CREATININE 1.1 mg/dL (0.55-1.3)
[2022-11-11] MEDS ORDERED: predniSONE 20 MG TABLET (UD) PO ONE (03:03)
[2022-11-11] MEDS ORDERED: predniSONE 10 MG TABLET (UD) ONE (03:09)
[2022-11-11 05:26] LABS: URIC ACID 7.5 mg/dL (2.6-7.2)
[2022-11-11 05:27] LABS: PHOSPHOROUS 3.9 mg/dL (2.5-4.9)
[2022-11-11] MEDS ORDERED: COLCHICINE 0.6 MG CAP PO ONE (06:03)
[2022-11-11 06:12] LABS: ERYTHROCYTE SEDIMENTATION RATE 8 mm/hr (0-10)
[2022-11-11] MEDS ORDERED: COLCHICINE 0.6 MG TAB ONE ×2 (06:29→07:22)
[2022-11-11 07:13] LABS: PH,URINE 5.5 (5.0-8.0); URINE APPEARANCE CLEAR; URINE BILIRUBIN NEGATIVE (NEGATIVE); URINE COLOR YELLOW; URINE GLUCOSE (UA) NEGATIVE (NEGATIVE); URINE KETONE NEGATIVE (NEGATIVE); URINE LEUK ESTERASE NEGATIVE (NEGATIVE); URINE NITRITE NEGATIVE (NEGATIVE); URINE PROTEIN NEGATIVE (NEGATIVE); URINE UROBILINOGEN 0.2 mg/dL (0.2-1.0)
[2022-11-11] MEDS ORDERED: COLCHICINE 0.6 MG TAB PO ONE (07:30)
[2022-11-11] MEDS: INSULIN SLIDING SCALE (NOVOLOG) 1 VIAL SQ SCH ×3 (07:32→17:54)
[2022-11-11] MEDS ORDERED: ENOXAPARIN NA (PORCINE) 40 MG/0.4 ML DISP.SYRIN SQ ONE (09:45)
[2022-11-11] MEDS ORDERED: NAPROXEN 500 MG TABLET ONE (09:53)
[2022-11-11] MEDS: NAPROXEN 500 MG TABLET PO SCH ×2 (09:56→22:20)
[2022-11-11] MEDS: ENOXAPARIN NA (PORCINE) 40 MG/0.4 ML DISP.SYRIN SQ SCH (09:56)
[2022-11-12] MEDS: INSULIN SLIDING SCALE (NOVOLOG) 1 VIAL SQ SCH ×3 (06:31→16:05)
[2022-11-12 08:47] LABS: BASO % 0.3 % (0-2.0); EOS % 1.7 % (0-4.5); HEMATOCRIT 40.9 % (35.4-49); HEMOGLOBIN 13.7 GM/dL (11.7-16.9); LYMPH % 27.2 % (8-40); MCH 28.3 pg (25.7-33.7); MCHC 33.5 g/dl (32.0-35.9); MEAN CELL VOLUME 84.4 fl (80-96); MEAN PLT VOLUME 8.6 fl (7.5-11.1); MONO % 6.7 % (3.8-10.2); NEUT % 64.1 % (42.8-82.8); PLATELET COUNT 190 10^3/uL (134-434); RBC 4.85 M/mm3 (4.00-5.60); RDW 13.9 % (11.9-15.9); WHITE BLOOD COUNT 8.4 K/mm3 (4.0-10.0)
[2022-11-12 08:59] LABS: POTASSIUM 4.4 mmol/L (3.5-5.1)
[2022-11-12 09:03] LABS: BLOOD UREA NITROGEN 15.3 mg/dL (7-18); CALCIUM 8.8 mg/dL (8.5-10.1)
[2022-11-12 09:04] LABS: ALBUMIN 3.7 g/dl (3.4-5.0)
[2022-11-12 09:07] LABS: CREATININE 1.2 mg/dL (0.55-1.3)
[2022-11-12 09:08] LABS: BILIRUBIN,TOTAL 0.9 mg/dL (0.2-1); TOT PROT 6.9 g/dl (6.4-8.2)
[2022-11-12] MEDS ORDERED: COLCHICINE 0.6 MG TAB PO SCH (10:00)
[2022-11-12] MEDS: NAPROXEN 500 MG TABLET PO SCH (10:47)
[2022-11-12] MEDS: ENOXAPARIN NA (PORCINE) 40 MG/0.4 ML DISP.SYRIN SQ SCH (10:48)
[2022-11-12 18:16] VITALS: BP 130/77; PULSE 61; RESP 16; TEMP 97.6
== END 2022-11-12 18:29 | disposition home or self-care (01) ==
LOC: JER 00:27 → JERBED 02:54 → INTOOBSV 02:54 → J5S 10:11
PROVIDERS: ADMIT Internal Medicine
PROC: 3E0233Z Introduction of Anti-inflammatory into Muscle, Percutaneous Approach (ICD-10-PCS; principal; 2022-11-11)
PROC: 3E013GC Introduction of Other Therapeutic Substance into Subcutaneous Tissue, Percutaneous Approach (ICD-10-PCS; 2022-11-11)
DX: M79.671 Pain in right foot (principal); M19.90 Unspecified osteoarthritis, unspecified site; M10.9 Gout, unspecified; F10.20 Alcohol dependence, uncomplicated; I10 Essential (primary) hypertension; E78.5 Hyperlipidemia, unspecified; E66.9 Obesity, unspecified; Z68.37 Body mass index [BMI] 37.0-37.9, adult; R26.2 Difficulty in walking, not elsewhere classified; G47.33 Obstructive sleep apnea (adult) (pediatric); Z91.013 Allergy to seafood
CPT/HCPCS: 36415; 73560-TC-LT-FY; 73610-TC-RT-FY; 73721-RT-TC; 80048; 80053; 81003; 82962; 83036; 83735; 84100; 84550; 85025; 85610; 85651; 86850; 86900; 86901; 87635; 93971-TC; 96372; 97116-GP; 97161-GP; 99285-25; G0378

== ENCOUNTER 2023-03-18 18:43 | Observation (INO) | payer OTHER ==
[2023-03-18] MEDS ORDERED: SODIUM CHLORIDE 0.9% 1000 ML INFUS.BAG IV ONE (19:02)
[2023-03-18] MEDS ORDERED: KETOROLAC TROMETHAMINE 15 MG/ML VIAL IVPUSH ONE (19:02)
[2023-03-18] MEDS ORDERED: KETOROLAC TROMETHAMINE 15 MG/ML VIAL ONE (19:37)
[2023-03-18 19:56] LABS: VENOUS BASE EXCESS 1.4 mmol/L (-2-2); VENOUS PCO2 56.5 mmHg (38-52); VENOUS PH 7.325 (7.310-7.410)
[2023-03-18 20:13] LABS: BASO % 0.5 % (0-2.0); EOS % 2.1 % (0-4.5); HEMATOCRIT 41.4 % (35.4-49); HEMOGLOBIN 14.3 GM/dL (11.7-16.9); LYMPH % 21.7 % (8-40); MCH 28.8 pg (25.7-33.7); MCHC 34.5 g/dl (32.0-35.9); MEAN CELL VOLUME 83.5 fl (80-96); MEAN PLT VOLUME 8.1 fl (7.5-11.1); MONO % 6.3 % (3.8-10.2); NEUT % 69.4 % (42.8-82.8); PLATELET COUNT 222 10^3/uL (134-434); RBC 4.96 M/mm3 (4.00-5.60); RDW 13.5 % (11.9-15.9); WHITE BLOOD COUNT 11.3 K/mm3 (4.0-10.0)
[2023-03-18 20:15] LABS: POTASSIUM 4.1 mmol/L (3.5-5.1)
[2023-03-18 20:16] LABS: CALCIUM 9.3 mg/dL (8.5-10.1)
[2023-03-18 20:19] LABS: INR 1.05 (0.83-1.09); PROTHROMBIN TIME (PATIENT) 12.2 SEC (9.7-13.0)
[2023-03-18 20:21] LABS: CREATININE 1.5 mg/dL (0.55-1.3)
[2023-03-18 20:22] LABS: ACTIVATED PTT 30.4 SECONDS (25.2-36.5); TOT PROT 7.6 g/dl (6.4-8.2)
[2023-03-18 20:23] LABS: BILIRUBIN,TOTAL 0.8 mg/dL (0.2-1)
[2023-03-18] MEDS ORDERED: morphine CARPU-JECT 4 MG/1 ML DISP.SYRIN IVPUSH ONE (22:15)
[2023-03-18] MEDS ORDERED: morphine SULFATE 4 MG/ML VIAL ONE (22:21)
[2023-03-19] MEDS ORDERED: traMADol HCL 50 MG TABLET PO PRN ×2 (02:31→06:09)
[2023-03-19] MEDS ORDERED: ASPIRIN 325 MG TABLET PO ONE (02:31)
[2023-03-19 04:09] LABS: PHENCYCLIDINE,URINE NEGATIVE (NEGATIVE); URINE BARBITURATES NEGATIVE (NEGATIVE); URINE BENZODIAZEPINES NEGATIVE (NEGATIVE)
[2023-03-19 04:10] LABS: COCAINE, UR NEGATIVE (NEGATIVE); METHADONE, UR NEGATIVE (NEGATIVE); OPIATES, URI POSITIVE (NEGATIVE); URINE AMPHETAMINES NEGATIVE (NEGATIVE)
[2023-03-19 04:41] VITALS: BMI 35.7
[2023-03-19 05:11] LABS: URINE APPEARANCE CLEAR; URINE BILIRUBIN NEGATIVE (NEGATIVE); URINE COLOR YELLOW; URINE GLUCOSE (UA) NEGATIVE (NEGATIVE); URINE KETONE NEGATIVE (NEGATIVE); URINE LEUK ESTERASE NEGATIVE (NEGATIVE); URINE NITRITE NEGATIVE (NEGATIVE); URINE PROTEIN NEGATIVE (NEGATIVE); URINE UROBILINOGEN 0.2 mg/dL (0.2-1.0)
[2023-03-19] MEDS ORDERED: ACETAMINOPHEN 325 MG TABLET (FP) PO PRN (05:55)
[2023-03-19] MEDS: ACETAMINOPHEN 325 MG TABLET (FP) PO PRN ×2 (06:16→11:22)
[2023-03-19] MEDS: ACYCLOVIR 400 MG TABLET PO SCH ×3 (06:39→22:18)
[2023-03-19 07:42] LABS: HEMATOCRIT 39.5 % (35.4-49); HEMOGLOBIN 13.5 GM/dL (11.7-16.9); MCH 28.6 pg (25.7-33.7); MCHC 34.2 g/dl (32.0-35.9); MEAN CELL VOLUME 83.8 fl (80-96); MEAN PLT VOLUME 8.7 fl (7.5-11.1); PLATELET COUNT 177 10^3/uL (134-434); RBC 4.72 M/mm3 (4.00-5.60); RDW 13.3 % (11.9-15.9); WHITE BLOOD COUNT 10.2 K/mm3 (4.0-10.0)
[2023-03-19 08:28] LABS: CREATININE 1.1 mg/dL (0.55-1.3); PHOSPHOROUS 3.4 mg/dL (2.5-4.9)
[2023-03-19 08:29] LABS: BILIRUBIN,TOTAL 1.1 mg/dL (0.2-1); TOT PROT 7.6 g/dl (6.4-8.2)
[2023-03-19 08:56] LABS: BLOOD UREA NITROGEN 12.8 mg/dL (7-18); CALCIUM 8.8 mg/dL (8.5-10.1)
[2023-03-19 08:58] LABS: ALBUMIN 3.9 g/dl (3.4-5.0); MAGNESIUM 1.9 mg/dL (1.8-2.4)
[2023-03-19] MEDS ORDERED: ASPIRIN 81 MG CHEWABLE TABLETS PO SCH (10:00)
[2023-03-19] MEDS ORDERED: IBUPROFEN 400 MG TABLET (FP) PO ONE (10:27)
[2023-03-19] MEDS: IBUPROFEN 400 MG TABLET (FP) PO SCH ×3 (10:31→22:18)
[2023-03-19] MEDS: COLCHICINE 0.6 MG CAPSULE PO SCH (10:46)
[2023-03-19] MEDS: SODIUM CHLORIDE 1,000 ML IV SCH (10:56)
[2023-03-19] MEDS ORDERED: CYCLOBENZAPRINE HCL 10 MG TABLET (FP) PO PRN (11:19)
[2023-03-19] MEDS ORDERED: KETOROLAC TROMETHAMINE 30 MG/1 ML VIAL IM PRN (11:19)
[2023-03-19 12:49] LABS: ERYTHROCYTE SEDIMENTATION RATE 16 mm/hr (0-10)
[2023-03-19] MEDS ORDERED: LIDOCAINE 5% TOPICAL PATCH TP SCH (16:45)
[2023-03-19] MEDS: LIDOCAINE 4% PATCH TP SCH (17:15)
[2023-03-19] MEDS ORDERED: LIDOCAINE PATCH REMOVAL MC SCH (22:00)
[2023-03-19] MEDS: CYCLOBENZAPRINE HCL 10 MG TABLET (FP) PO SCH (22:18)
[2023-03-20] MEDS: CYCLOBENZAPRINE HCL 10 MG TABLET (FP) PO SCH ×2 (06:24→13:46)
[2023-03-20] MEDS: IBUPROFEN 400 MG TABLET (FP) PO SCH ×2 (06:24→13:46)
[2023-03-20] MEDS: ACYCLOVIR 400 MG TABLET PO SCH ×2 (06:25→13:47)
[2023-03-20 08:15] LABS: HEMATOCRIT 36.7 % (35.4-49); HEMOGLOBIN 12.8 GM/dL (11.7-16.9); MCH 28.9 pg (25.7-33.7); MCHC 34.9 g/dl (32.0-35.9); MEAN CELL VOLUME 82.7 fl (80-96); MEAN PLT VOLUME 8.4 fl (7.5-11.1); PLATELET COUNT 191 10^3/uL (134-434); RBC 4.44 M/mm3 (4.00-5.60); RDW 13.6 % (11.9-15.9); WHITE BLOOD COUNT 7.7 K/mm3 (4.0-10.0)
[2023-03-20 08:47] LABS: BLOOD UREA NITROGEN 9.2 mg/dL (7-18)
[2023-03-20 08:51] LABS: CREATININE 1.1 mg/dL (0.55-1.3)
[2023-03-20] MEDS: SODIUM CHLORIDE 1,000 ML IV SCH ×2 (11:04→13:46)
[2023-03-20] MEDS: COLCHICINE 0.6 MG CAPSULE PO SCH (11:08)
[2023-03-20] MEDS: LIDOCAINE 4% PATCH TP SCH (11:08)
[2023-03-20 18:36] VITALS: BP 120/74; PULSE 85; RESP 18; TEMP 98.9
== END 2023-03-20 19:10 | disposition home or self-care (01) ==
LOC: JER 18:43 → JERBED 03-19 00:21 → J4W 03-19 04:02
PROVIDERS: ADMIT Internal Medicine; ATTEND Internal Medicine
PROC: 3E0333Z Introduction of Anti-inflammatory into Peripheral Vein, Percutaneous Approach (ICD-10-PCS; principal; 2023-03-19)
PROC: 3E033NZ Introduction of Analgesics, Hypnotics, Sedatives into Peripheral Vein, Percutaneous Approach (ICD-10-PCS; 2023-03-19)
PROC: 3E0337Z Introduction of Electrolytic and Water Balance Substance into Peripheral Vein, Percutaneous Approach (ICD-10-PCS; 2023-03-19)
DX: R07.89 Other chest pain (principal); B00.1 Herpesviral vesicular dermatitis; R07.1 Chest pain on breathing; N17.9 Acute kidney failure, unspecified; M25.561 Pain in right knee; R22.41 Localized swelling, mass and lump, right lower limb; R61 Generalized hyperhidrosis; R07.0 Pain in throat; R09.89 Other specified symptoms and signs involving the circulatory and respiratory systems; R42 Dizziness and giddiness; M79.604 Pain in right leg; M10.9 Gout, unspecified; Z29.9 Encounter for prophylactic measures, unspecified; F17.210 Nicotine dependence, cigarettes, uncomplicated; Z91.013 Allergy to seafood
CPT/HCPCS: 0241U-QW; 36415; 71045-TC-FY; 71275-TC; 73502-TC-RT-FY; 73564-TC-RT-FY; 78452-TC; 80048; 80053; 80307; 81003; 82803; 82962; 83036; 83735; 84100; 84443; 84484; 85025; 85027; 85610; 85651; 85730; 86140; 93005; 93010; 93017; 93306-TC; 94010; 96361; 96374; 96375; 99285-25; A9502; G0378; Q9967

== ENCOUNTER 2023-06-18 19:00 | Emergency (ER) | payer OTHER ==
[2023-06-18 19:10] VITALS: BP 120/75; PULSE 100; RESP 20; TEMP 100.9; BMI 35.6
[2023-06-18] MEDS ORDERED: ACETAMINOPHEN 1000 MG/100 ML BAG IVPB ONE (19:45)
[2023-06-18] MEDS ORDERED: COLCHICINE 0.6 MG TAB PO ONE ×2 (19:46→22:08)
[2023-06-18] MEDS ORDERED: SODIUM CHLORIDE 1,000 ML IV STA (19:50)
[2023-06-18] MEDS ORDERED: ACETAMINOPHEN INJECTION 100 ML IVPB ONE (20:33)
[2023-06-18 20:37] LABS: BASO % 0.5 % (0-2.0); EOS % 2.1 % (0-4.5); HEMATOCRIT 39.9 % (35.4-49); HEMOGLOBIN 13.5 GM/dL (11.7-16.9); MCH 28.5 pg (25.7-33.7); MCHC 33.8 g/dl (32.0-35.9); MEAN CELL VOLUME 84.4 fl (80-96); MEAN PLT VOLUME 8.1 fl (7.5-11.1); MONO % 9.7 % (3.8-10.2); NEUT % 67.7 % (42.8-82.8); PLATELET COUNT 196 10^3/uL (134-434); RBC 4.73 M/mm3 (4.00-5.60); RDW 14.8 % (11.9-15.9); WHITE BLOOD COUNT 9.8 K/mm3 (4.0-10.0)
[2023-06-18 20:41] LABS: INR 1.06 (0.83-1.09); PROTHROMBIN TIME (PATIENT) 12.3 SEC (9.7-13.0)
[2023-06-18] MEDS ORDERED: COLCHICINE 0.6 MG TAB ONE ×2 (20:41→22:30)
[2023-06-18 20:43] LABS: ACTIVATED PTT 29.3 SECONDS (25.2-36.5)
[2023-06-18 20:57] LABS: POTASSIUM 4.1 mmol/L (3.5-5.1)
[2023-06-18 21:00] LABS: ALBUMIN 3.6 g/dl (3.4-5.0); CALCIUM 8.8 mg/dL (8.5-10.1)
[2023-06-18 21:03] LABS: CREATININE 1.3 mg/dL (0.55-1.3)
[2023-06-18 21:05] LABS: BILIRUBIN,TOTAL 1.2 mg/dL (0.2-1); TOT PROT 7.5 g/dl (6.4-8.2)
[2023-06-18] MEDS ORDERED: KETOROLAC TROMETHAMINE 30 MG/1 ML VIAL IM ONE (22:08)
[2023-06-18] MEDS ORDERED: KETOROLAC TROMETHAMINE 30 MG/1 ML VIAL ONE (22:30)
[2023-06-18 23:10] LABS: PH,URINE 5.5 (5.0-8.0); URINE APPEARANCE CLEAR; URINE BILIRUBIN NEGATIVE (NEGATIVE); URINE COLOR YELLOW; URINE GLUCOSE (UA) NEGATIVE (NEGATIVE); URINE KETONE TRACE (NEGATIVE); URINE LEUK ESTERASE NEGATIVE (NEGATIVE); URINE NITRITE NEGATIVE (NEGATIVE); URINE PROTEIN NEGATIVE (NEGATIVE); URINE UROBILINOGEN 0.2 mg/dL (0.2-1.0)
== END 2023-06-18 23:06 | disposition home or self-care (01) ==
LOC: JER 19:00
PROC: 3E033NZ Introduction of Analgesics, Hypnotics, Sedatives into Peripheral Vein, Percutaneous Approach (ICD-10-PCS; principal; 2023-06-18)
PROC: 3E0337Z Introduction of Electrolytic and Water Balance Substance into Peripheral Vein, Percutaneous Approach (ICD-10-PCS; 2023-06-18)
PROC: 3E0333Z Introduction of Anti-inflammatory into Peripheral Vein, Percutaneous Approach (ICD-10-PCS; 2023-06-18)
DX: M25.571 Pain in right ankle and joints of right foot (principal); R07.89 Other chest pain; M10.9 Gout, unspecified; Z20.822 Contact with and (suspected) exposure to COVID-19
CPT/HCPCS: 0241U-QW; 36415; 71045-TC-FY; 73630-TC-RT-FY; 80053; 81003; 82550; 83605; 84484; 85025; 85610; 85730; 87040; 87086; 93005; 93010; 99285-25

== ENCOUNTER 2023-07-16 04:41 | Emergency (ER) | payer OTHER ==
[2023-07-16 05:11] VITALS: RESP 20; TEMP 99.7; BMI 35.6
[2023-07-16] MEDS ORDERED: ACETAMINOPHEN INJECTION 100 ML IVPB ONE (05:18)
[2023-07-16] MEDS ORDERED: FAMOTIDINE 20 MG/50 ML IVPB 20 MG/50 ML MG IVPB ONE (05:18)
[2023-07-16] MEDS: ACETAMINOPHEN 1000 MG/100 ML BAG IVPB ONE (05:22)
[2023-07-16] MEDS: SODIUM CHLORIDE 1,000 ML IV STA (05:22)
[2023-07-16] MEDS: FAMOTIDINE 20 MG/50 ML IVPB 20 MG/50 ML MG IVPB ONE (05:23)
[2023-07-16 06:36] LABS: BASO % 0.3 % (0-2.0); EOS % 0.9 % (0-4.5); HEMATOCRIT 42.4 % (35.4-49); HEMOGLOBIN 14.3 GM/dL (11.7-16.9); LYMPH % 11.6 % (8-40); MCH 28.1 pg (25.7-33.7); MCHC 33.8 g/dl (32.0-35.9); MEAN PLT VOLUME 8.5 fl (7.5-11.1); MONO % 9.7 % (3.8-10.2); NEUT % 77.5 % (42.8-82.8); PLATELET COUNT 177 10^3/uL (134-434); RBC 5.11 M/mm3 (4.00-5.60); RDW 14.2 % (11.9-15.9); WHITE BLOOD COUNT 12.6 K/mm3 (4.0-10.0)
[2023-07-16] MEDS: morphine CARPU-JECT 2 MG/1 ML DISP.SYRIN IVPUSH ONE (07:02)
[2023-07-16 07:03] VITALS: BP 104/89; PULSE 95
[2023-07-16 07:05] LABS: BILIRUBIN,TOTAL 1.9 mg/dL (0.2-1); BLOOD UREA NITROGEN 18.5 mg/dL (7-18); CALCIUM 9.1 mg/dL (8.5-10.1); CREATININE 1.3 mg/dL (0.55-1.3); POTASSIUM 3.7 mmol/L (3.5-5.1); TOT PROT 7.7 g/dl (6.4-8.2)
[2023-07-16] MEDS ORDERED: KETOROLAC TROMETHAMINE 30 MG/1 ML VIAL ONE (08:12)
[2023-07-16] MEDS ORDERED: ALBUTEROL SO4 2.5/IPRATROPIUM 0.5 INH SOL 3 ML VIAL.NEB. NEB ONE (08:12)
[2023-07-16] MEDS: KETOROLAC TROMETHAMINE 30 MG/1 ML VIAL IVPUSH ONE (08:18)
[2023-07-16] MEDS: ALBUTEROL SO4 2.5/IPRATROPIUM 0.5 INH SOL 3 ML VIAL.NEB. NEB ONE (08:26)
== END 2023-07-16 11:44 | disposition home or self-care (01) ==
LOC: FER 04:41
PROC: 3E033GC Introduction of Other Therapeutic Substance into Peripheral Vein, Percutaneous Approach (ICD-10-PCS; principal; 2023-07-16)
PROC: 3E033GC Introduction of Other Therapeutic Substance into Peripheral Vein, Percutaneous Approach (ICD-10-PCS; 2023-07-16)
PROC: 3E033GC Introduction of Other Therapeutic Substance into Peripheral Vein, Percutaneous Approach (ICD-10-PCS; 2023-07-16)
PROC: 3E033GC Introduction of Other Therapeutic Substance into Peripheral Vein, Percutaneous Approach (ICD-10-PCS; 2023-07-16)
PROC: 3E0F7GC Introduction of Other Therapeutic Substance into Respiratory Tract, Via Natural or Artificial Opening (ICD-10-PCS; 2023-07-16)
DX: R07.2 Precordial pain (principal); R10.13 Epigastric pain; R50.9 Fever, unspecified; Z20.822 Contact with and (suspected) exposure to COVID-19
CPT/HCPCS: 0241U-QW; 36415; 71046-TC-FY; 80053; 83880; 84484; 85025; 93005; 99285-25; J0131